=== PATIENT | female | born 1965 | race Two or more races ===

== ENCOUNTER 2020-07-03 12:45 | Outpatient (REF) | payer MEDICAID, SELFPAY ==
[2020-07-03 14:43] LABS: TSH reflex Free T4 0.14 mIU/mL (0.32-4.0)
[2020-07-03 15:22] LABS: Free T4 (Free Thyroxine) 1.47 ng/dL (0.71-1.85)
== END 2020-07-03 12:46 | disposition home or self-care (01) ==
LOC: HO.LAB 12:45
PROVIDERS: PCP Nurse Practitioner Family; Visit Provider Emergency Medicine
DX: E03.9 Hypothyroidism, unspecified (principal)
CPT/HCPCS: 84439; 84443

== ENCOUNTER → 2020-08-14 13:44 | Outpatient (REF) | payer MEDICAID, SELFPAY | LOC: HO.CARD 13:44 | PROVIDERS: Visit Provider Internal Medicine Cardiovascular Disease | DX: Z13.89 Encounter for screening for other disorder (principal) ==

== ENCOUNTER 2021-07-18 13:24 | Outpatient (RCR) | payer MEDICAID, SELFPAY | END 2021-08-21 15:10 | disposition home or self-care (01) | LOC: HO.PT 13:24 | PROVIDERS: PCP Nurse Practitioner Family; Visit Provider Internal Medicine | DX: M54.50 Low back pain, unspecified (principal) | CPT/HCPCS: 97110; 97162 ==

== ENCOUNTER 2022-03-14 09:56 | Outpatient (REF) | payer MEDICAID, SELFPAY ==
[2022-03-14 15:07] LABS: CT PCR NOT DETECTED (Not Detect.); NG PCR NOT DETECTED (Not Detect.)
[2022-03-15 13:36] LABS: BV Int Neg Control Negative (Negative); BV Int Pos Control Positive (Positive)
[2022-03-20 19:06] LABS: HPV mRNA E6/E7 rflx Not Detected (Not Detected)
== END 2022-03-14 09:57 | disposition home or self-care (01) ==
LOC: HO.LAB 09:56
PROVIDERS: Visit Provider Advanced Practice Midwife
DX: Z01.419 Encounter for gynecological examination (general) (routine) without abnormal findings (principal); N95.0 Postmenopausal bleeding; Z11.3 Encounter for screening for infections with a predominantly sexual mode of transmission; Z11.8 Encounter for screening for other infectious and parasitic diseases; Z11.51 Encounter for screening for human papillomavirus (HPV); Z13.29 Encounter for screening for other suspected endocrine disorder
CPT/HCPCS: 87480; 87491; 87510; 87591; 87624; 87660; 88142; 99212

== ENCOUNTER 2022-06-13 12:31 | Outpatient (REF) | payer MEDICAID, SELFPAY ==
--- NOTE | ~2022-06-13 | US_ITS ---
EXAMINATION: US VENOUS ULTRASOUND WITH DOPPLER LOWER EXTREMITY, BILATERAL CLINICAL INFORMATION: Bilateral lower extremity edema COMPARISON: None TECHNIQUE: Ultrasound of the deep veins is performed from the hip to the calf with compression sonography and color and pulse Doppler assessment. Spectral analysis with color-flow imaging is performed. The exam is limited by the patient's body habitus and inability to move adequately. FINDINGS: RIGHT: There is normal venous compression and respiratory variation and augmented flow. The visualized common femoral vein, superficial femoral vein, profunda femoral vein, popliteal vein, and the trifurcation region shows no evidence of deep venous thrombosis. There is no significant popliteal fossa cyst. LEFT: There is normal venous compression and respiratory variation and augmented flow. The visualized common femoral vein, superficial femoral vein, profunda femoral vein, popliteal vein, and the trifurcation region shows no evidence of deep venous thrombosis. The peroneal veins could not be visualized secondary to edema and limited mobility. There is no significant popliteal fossa cyst. Prominent normal architecture lymph node is present in the left groin. If the patient's symptoms persist, followup ultrasound in 5 days 7 days might be of value to exclude proximal propagation from a non-visualized calf vein. US/US venous duplex LE BI IMPRESSION: No DVT demonstrated in either lower extremity.
== END 2022-06-13 12:32 | disposition home or self-care (01) ==
LOC: HO.US 12:31
PROVIDERS: PCP Internal Medicine; Visit Provider Internal Medicine
DX: R60.0 Localized edema (principal)
CPT/HCPCS: 93970

== ENCOUNTER → 2022-07-22 12:51 | Outpatient (BNVA) | payer MEDICAID, SELFPAY | PROVIDERS: PCP Internal Medicine; Visit Provider Surgery Vascular Surgery | DX: I83.12 Varicose veins of left lower extremity with inflammation (principal); I89.0 Lymphedema, not elsewhere classified | CPT/HCPCS: 99202 ==

== ENCOUNTER 2022-08-23 13:24 | Outpatient (REF) | payer MEDICAID, SELFPAY ==
--- NOTE | ~2022-08-23 | US_ITS ---
EXAMINATION: US PELVIS CLINICAL INFORMATION: Postmenopausal bleeding. COMPARISON: None. TECHNIQUE: Ultrasound of the pelvis is performed using both transabdominal and transvaginal transducers along with Doppler. Transvaginal imaging was not performed due to immobility and refusal. FINDINGS: UTERUS: The uterus is anteverted, anteflexed and measures 11.6 cm in length, 5.3 cm in AP and 6.9 cm in transverse dimension. There are multiple nabothian cysts seen in the cervix. The double wall endometrial thickness is 1.1 cm. The uterus is smooth in contour and has normal myometrial echogenicity. No visible fibroid. ADNEXA: Both ovaries are not visualized. There is no free fluid in the cul-de-sac. US/US pelvic complete IMPRESSION: Unremarkable uterus. Small nabothian cysts in the cervix. Ovaries are not visualized.
== END 2022-08-23 13:25 | disposition home or self-care (01) ==
LOC: HO.US 13:24
PROVIDERS: Visit Provider Advanced Practice Midwife
DX: N95.0 Postmenopausal bleeding (principal)
CPT/HCPCS: 76856

== ENCOUNTER 2022-09-05 12:45 | Outpatient (REF) | payer MEDICAID, SELFPAY ==
--- NOTE | ~2022-09-05 | US_ITS ---
EXAMINATION: RIGHT AND LEFT LOWER EXTREMITY VENOUS ULTRASOUND (REFLUX EXAM) CLINICAL INDICATION: Varicose veins. COMPARISON: 03/13/2022 and 08/08/2014. TECHNIQUE: Color flow triplex imaging and compression Doppler was performed to evaluate both the deep and the superficial systems bilaterally. To evaluate the superficial system, the examination was performed in the upright position. Color-flow Doppler ultrasound and compression ultrasound were utilized. In addition, maneuvers were utilized to demonstrate reflux. FINDINGS: 1. DEEP VENOUS ULTRASOUND OF THE RIGHT LOWER EXTREMITY: Respiratory variation, normal compression and augmented flow are noted in the right common femoral vein as well as the right popliteal vein and there is no evidence of deep venous thrombosis at these locations. There is no evidence of reflux in the deep system in either the common femoral vein or the popliteal vein. There is no evidence of a popliteal fossa cyst or popliteal artery aneurysm. 2. SUPERFICIAL ULTRASOUND WITH DOPPLER OF RIGHT LOWER EXTREMITY: The right great saphenous vein at the saphenofemoral junction measures 11 mm, at the midthigh 3 mm, nxaar-qoy-cdnd 3 mm, rexfa-gzh-eyrh 4 mm, at midcalf 5 mm and at the ankle measures 4 mm. There is no reflux demonstrated in the right great saphenous vein. The right small saphenous vein measures 3 mm and shows no reflux. 3. DEEP VENOUS ULTRASOUND OF THE LEFT LOWER EXTREMITY: Respiratory variation, normal compression and augmented flow are noted in the left common femoral vein as well as the left popliteal vein and there is no evidence of deep venous thrombosis at these locations. There is no evidence of reflux in the deep system in either the common femoral vein or the popliteal vein. There is no evidence of a popliteal fossa cyst. No popliteal artery aneurysm. 4. SUPERFICIAL ULTRASOUND WITH DOPPLER OF LEFT LOWER EXTREMITY: Left great saphenous vein at the saphenofemoral junction measures 11 mm, at the midthigh 10 mm, jfsbg-ean-kzix 3 mm, wfgip-gom-nole 5 mm, at midcalf 4 mm and at the ankle measures 5 mm. Reflux is noted within the left greater saphenous vein in the midcalf of approximately 0.7 seconds and at the ankle at approximately 0.6 seconds. No reflux was noted at the saphenofemoral junction. The left small saphenous vein measures 4 mm and shows no reflux. US/US venous duplex LE BI IMPRESSION: 1. No evidence of reflux or thrombus in the common femoral veins or popliteal veins bilaterally. 2. Left greater saphenous vein reflux within the midcalf and ankle.
== END 2022-09-05 12:46 | disposition home or self-care (01) ==
LOC: HO.US 12:45
PROVIDERS: Visit Provider Surgery Vascular Surgery
DX: I83.893 Varicose veins of bilateral lower extremities with other complications (principal)
CPT/HCPCS: 93970

== ENCOUNTER → 2022-09-12 12:51 | Outpatient (BNVA) | payer MEDICAID, SELFPAY | PROVIDERS: PCP Internal Medicine; Visit Provider Surgery Vascular Surgery | DX: I83.11 Varicose veins of right lower extremity with inflammation (principal); I89.0 Lymphedema, not elsewhere classified | CPT/HCPCS: 99212 ==

== ENCOUNTER 2022-12-05 03:28 | Emergency (ER) | payer MEDICAID, SELFPAY ==
--- NOTE | 2022-12-05 | ECG_ITS ---
Test Reason : anxiety/cp Blood Pressure : / mmHG Vent. Rate : 087 BPM Atrial Rate : 087 BPM P-R Int : 130 ms QRS Dur : 082 ms QT Int : 342 ms P-R-T Axes : 048 000 039 degrees QTc Int : 411 ms Normal sinus rhythm Cannot rule out Anterior infarct , age undetermined Abnormal ECG When compared with ECG of 21-MAY-2020 04:25, Nonspecific T wave abnormality no longer evident in Lateral leads Referred By: Azul Luciano Electronically Signed By:MAYTE MIGUEL
[2022-12-05 03:36] VITALS: BP 171/102; PULSE 98; RESP 16; O2SAT 98; BMI 40.3
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
[2022-12-05] MEDS: LORazepam 2 MG/ML VIAL IM (03:59)
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
== END 2022-12-05 06:51 | disposition home or self-care (01) ==
PROVIDERS: Emergency Provider Emergency Medicine; PCP Internal Medicine
DX: F41.9 Anxiety disorder, unspecified (principal); I10 Essential (primary) hypertension; Z79.02 Long term (current) use of antithrombotics/antiplatelets; Z79.899 Other long term (current) drug therapy; Z79.84 Long term (current) use of oral hypoglycemic drugs; Z72.89 Other problems related to lifestyle; Z63.8 Other specified problems related to primary support group
CPT/HCPCS: 93005; 96372; 99284; J2060

== ENCOUNTER 2022-12-05 15:09 | Emergency (ER) | payer MEDICAID, SELFPAY ==
--- NOTE | 2022-12-05 15:19 | ECG_ITS ---
Test Reason : CHEST PAIN Blood Pressure : / mmHG Vent. Rate : 097 BPM Atrial Rate : 097 BPM P-R Int : 136 ms QRS Dur : 082 ms QT Int : 354 ms P-R-T Axes : 047 001 072 degrees QTc Int : 449 ms Normal sinus rhythm Nonspecific T wave abnormality Abnormal ECG When compared with ECG of 05-DEC-2022 03:52, Nonspecific T wave abnormality now evident in Lateral leads Referred By: Generic ED Physician Electronically Signed By:JAZZY BARBER MD
[2022-12-05 15:23] VITALS: BP 178/112; PULSE 116; O2SAT 100
[2022-12-05 15:57] VITALS: BP 164/99; PULSE 107; RESP 18; TEMP 37.1; O2SAT 100; BMI 58.2
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
[2022-12-05] MEDS: LORazepam 1 MG TABLET 2 MG PO (16:14)
[2022-12-05 17:44] LABS: MANUAL DIFF FLAG NO
[2022-12-05 17:50] LABS: Basophils Absolute Auto 0.1 X10*3/uL (0.0-0.2); Basophils Percent Auto 0.3 % (0-2); Eosinophils Absolute Auto 0.1 X10*3/uL (0.0-0.4); Eosinophils Percent Auto 0.5 % (0-4); Hematocrit 41.7 % (37.0-47.0); Imm Gran Pct Auto 0.5 % (0.0-0.4); Lymphocytes Absolute Auto 2.1 X10*3/uL (1.2-4.9); Mean Corpuscular HGB Conc 31.2 g/dl (31.0-35.0); Mean Corpuscular Volume 86.5 fL (80.0-98.0); Mean Platelet Volume 10.2 fL (9.4-12.3); Neutrophils Absolute Auto 15.8 x10*3/uL (2.0-8.3); Neutrophils Percent Auto 82.7 % (45-73); Platelet Count 270 X10*3/uL (160-400); Red Blood Count 4.82 X10*6/uL (4.20-5.50); Red Cell Distribution Width 15.3 % (11.0-16.0); White Blood Count 19.1 X10*3/uL (4.8-10.8)
[2022-12-05 18:08] LABS: COVID-19 Test Negative (Negative); IDNOW Serial# 08D9AD1C
[2022-12-05 18:21] LABS: Alanine Aminotransferase 32 U/L (0-31); Albumin Level 3.8 g/dL (3.5-5.0); Alkaline Phosphatase 122 U/L (39-117); Anion Gap 19 (12-20); Aspartate Amino Transferase 37 U/L (5-31); Bilirubin Direct 0.2 mg/dL (0.0-0.5); Bilirubin Total 0.7 mg/dL (0.0-1.0); Blood Urea Nitrogen 13 mg/dL (9-16); Calcium 9.3 mg/dL (8.4-10.2); Carbon Dioxide 16 mmol/L (22-29); Chloride 105 mmol/L (96-108); Creatinine Clr Calc Pharmacy 98.3; Estimated Glomerular Filt Rate > 60; Ethanol < 10 mg/dL; Glucose Random 177 mg/dL (60-115); Magnesium 2.1 mg/dL (1.6-2.6); Potassium 4.2 mmol/L (3.3-5.1); Sodium 136 mmol/L (135-145)
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
[2022-12-05 20:00] VITALS: BP 142/69; PULSE 100; RESP 22; TEMP 36.9; O2SAT 99
--- NOTE | 2022-12-05 20:13 | MHC.EDTECH ---
Put a purewick for patient to void. Another dialysis technician assist to give patient a boost up in bed.
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
[2022-12-05 21:43] LABS: Appearance Urine Clear; Color Urine Yellow; Glucose Urine UA 250 mg/dL (Negative); Leukocyte Esterase Urine Small (1+) (Negative); Nitrite Urine Negative (Negative); PH 5.5 (5.0-9.0); Specific Gravity - Urine 1.025 (1.005-1.025); UMIC TRIGGER UACC YES; Urine Blood Negative (Negative); Urine Ketones Negative (Negative); Urine Protein 100 (2+) mg/dL (Neg-Trace)
[2022-12-05 21:52] LABS: Amphetamine Screen Urine Not Detected (Not Detect); Barbiturates, Urine Not Detected (Not Detect); Benzodiazepines Screen Urine Not Detected (Not Detect); Cannabinoid Screen Urine Not Detected (Not Detect); Cocaine Screen Urine Not Detected (Not Detect); Fentanyl, urine Not Detected (Not Detect); Opiate Screen Urine Not Detected (Not Detect); Phencyclidine Screen Urine Not Detected (Not Detect)
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
[2022-12-05 23:01] LABS: PLT CLUMP 1; Red Cell Distribution Width 15.4 % (11.0-16.0); SCAN SMEAR FLAG 1; WBC ABN SCTR 1
[2022-12-05 23:03] LABS: Basophils Percent Auto 0.2 % (0-2); Eosinophils Absolute Auto 0.1 X10*3/uL (0.0-0.4); Eosinophils Percent Auto 0.7 % (0-4); Hematocrit 40.7 % (37.0-47.0); Hemoglobin 12.9 g/dl (12.0-16.0); Imm Gran Abs Auto 0.08 X10*3/uL (0.00-0.03); Imm Gran Pct Auto 0.4 % (0.0-0.4); Lymphocytes Absolute Auto 2.1 X10*3/uL (1.2-4.9); Lymphocytes Percent Auto 10.6 % (20-40); Mean Corpuscular HGB Conc 31.7 g/dl (31.0-35.0); Mean Corpuscular Hemoglobin 26.8 pg (27.0-33.0); Mean Corpuscular Volume 84.6 fL (80.0-98.0); Mean Platelet Volume 10.1 fL (9.4-12.3); Monocytes Absolute Auto 0.7 X10*3/uL (0.1-1.2); Monocytes Percent Auto 3.4 % (2-11); Neutrophils Absolute Auto 16.5 x10*3/uL (2.0-8.3); Neutrophils Percent Auto 84.7 % (45-73); Red Blood Count 4.81 X10*6/uL (4.20-5.50)
[2022-12-05 23:09] LABS: MANUAL DIFF FLAG NO; WBC ABN SCTR FOR CBC 1
[2022-12-05 23:10] LABS: White Blood Count 19.5 X10*3/uL (4.8-10.8)
[2022-12-05 23:16] LABS: Bacteria Urine 4+ (None Seen); Hyaline Casts Urine 0-2 /LPF (0-2); RBC Urine 0-2 /HPF (0-2); Squamous Epithelial Cell Urine 0-2 /HPF (0-2); UACC Culture Trigger YES; WBC Urine 21-50 /HPF (0-5)
[2022-12-05 23:56] VITALS: BP 139/79; PULSE 93; RESP 16; TEMP 36.6; O2SAT 99
--- NOTE | 2022-12-06 00:55 | PC.NURSE ---
assumed care of patient at 2300 - patient resting comfortably on stretcher, call nicole within reach. visitor at bedside. will CTM
--- NOTE | 2022-12-06 07:17 | PC.NURSE ---
Patient and significant other sleeping in room no distress noted will CTM
[2022-12-06 08:53] VITALS: BP 154/98; PULSE 94; RESP 22; O2SAT 99
[2022-12-06 09:10] LABS: MANUAL DIFF FLAG NO
[2022-12-06 09:12] LABS: Basophils Absolute Auto 0.1 X10*3/uL (0.0-0.2); Basophils Percent Auto 0.3 % (0-2); Eosinophils Absolute Auto 0.3 X10*3/uL (0.0-0.4); Eosinophils Percent Auto 1.7 % (0-4); Hematocrit 37.7 % (37.0-47.0); Hemoglobin 12.2 g/dl (12.0-16.0); Imm Gran Abs Auto 0.06 X10*3/uL (0.00-0.03); Imm Gran Pct Auto 0.4 % (0.0-0.4); Lymphocytes Absolute Auto 3.5 X10*3/uL (1.2-4.9); Lymphocytes Percent Auto 20.5 % (20-40); Mean Corpuscular HGB Conc 32.4 g/dl (31.0-35.0); Mean Corpuscular Hemoglobin 27.5 pg (27.0-33.0); Mean Corpuscular Volume 84.9 fL (80.0-98.0); Mean Platelet Volume 9.8 fL (9.4-12.3); Monocytes Absolute Auto 0.6 X10*3/uL (0.1-1.2); Monocytes Percent Auto 3.8 % (2-11); Neutrophils Absolute Auto 12.4 x10*3/uL (2.0-8.3); Neutrophils Percent Auto 73.3 % (45-73); Platelet Count 283 X10*3/uL (160-400); Red Blood Count 4.44 X10*6/uL (4.20-5.50); Red Cell Distribution Width 15.4 % (11.0-16.0); White Blood Count 16.9 X10*3/uL (4.8-10.8)
--- NOTE | 2022-12-06 09:41 | PC.NURSE ---
Spoke with Sgt Glo FITZGERALD, they would not transport patient to court.
--- NOTE | 2022-12-06 09:47 | PC.NURSE ---
Spoke with boyfriend of patient patient ok with chair nile taking patient directly to court to file 209A, then they will aquire ride home from there. Both case management and provider aware will prepare for discharge
--- NOTE | 2022-12-06 10:37 | MHC.CM.ED ---
Per ANASTASIA Thorpe patient is ready for discharge. Attempted to arrange transportation to the [facility]. Patient and sig other are declining transportation to court at this time and are requesting to return home. Chair van booked for patient. Fariha booked for sig other. Patient, sig other, Momo NAVA and Ila OCONNOR aware. Continue to monitor for d/c needs.
--- NOTE | 2022-12-06 11:14 | PHA.MEDREC ---
Pharmacy Consult ? Medication Reconciliation Pharmacy has completed the medication reconciliation. Utilized claim history and list for med box from pharmacy
[2022-12-06 11:32] VITALS: BP 154/58; PULSE 95; RESP 18; TEMP 36.6; O2SAT 98
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
== END 2022-12-06 12:10 | disposition still patient (30) ==
PROVIDERS: Nurse Practitioner Family; Physician Assistant; Emergency Provider Student in an Organized Health Care Education/Training Program
DX: F41.9 Anxiety disorder, unspecified (principal); F43.20 Adjustment disorder, unspecified; N39.0 Urinary tract infection, site not specified; B96.20 Unspecified Escherichia coli [E. coli] as the cause of diseases classified elsewhere; B96.1 Klebsiella pneumoniae [K. pneumoniae] as the cause of diseases classified elsewhere; R00.0 Tachycardia, unspecified; Z20.822 Contact with and (suspected) exposure to COVID-19; I10 Essential (primary) hypertension; Z72.89 Other problems related to lifestyle; Z63.79 Other stressful life events affecting family and household; Z79.02 Long term (current) use of antithrombotics/antiplatelets; Z79.899 Other long term (current) drug therapy
CPT/HCPCS: 36415; 80048; 80076; 80307; 81001; 81003; 82077; 83735; 84484; 85025; 87086; 87088; 87186; 87635; 93005; 99284

== ENCOUNTER 2022-12-26 13:48 | Outpatient (REF) | payer MEDICAID, SELFPAY | END 2022-12-26 13:49 | disposition home or self-care (01) | LOC: HO.LAB 13:48 | PROVIDERS: Visit Provider Advanced Practice Midwife | DX: N95.0 Postmenopausal bleeding (principal); R93.89 Abnormal findings on diagnostic imaging of other specified body structures | CPT/HCPCS: 58100; 88305 ==

== ENCOUNTER → 2023-01-03 11:12 | Outpatient (BNVA) | payer MEDICAID, SELFPAY | PROVIDERS: Visit Provider Advanced Practice Midwife ==

== ENCOUNTER 2023-07-07 14:25 | Outpatient (REF) | payer MEDICAID, SELFPAY ==
[2023-07-07 15:10] LABS: Anion Gap 13 (12-20); Blood Urea Nitrogen 15 mg/dL (9-16); Calcium 10.4 mg/dL (8.4-10.2); Carbon Dioxide 24 mmol/L (22-29); Chloride 103 mmol/L (96-108); Estimated Glomerular Filt Rate 51; Glucose Random 122 mg/dL (60-115); Potassium 4.1 mmol/L (3.3-5.1); Sodium 136 mmol/L (135-145)
[2023-07-07 15:16] LABS: B Type Natriuretic Peptide 19 pg/mL (<100)
== END 2023-07-07 14:26 | disposition home or self-care (01) ==
LOC: HO.LAB 14:25
PROVIDERS: PCP Internal Medicine; Visit Provider Internal Medicine Cardiovascular Disease
DX: R60.9 Edema, unspecified (principal)
CPT/HCPCS: 36415; 80048; 83880

== ENCOUNTER 2023-07-25 13:40 | Outpatient (AMB) | payer MEDICAID, SELFPAY ==
--- NOTE | 2023-07-25 13:51 | A.OFFVIS_ITS ---
Intake Vital Signs 07/25/23 13:56 Weight 230 lb BP 146/92 H Blood Pressure Location Rt brachial Position Sitting Respiration 17 Pulse 75 Pulse Source Pulse Oximeter Pulse Oximetry (%) 98 Oxygen Delivery Method Room Air Intake Visit Reasons: NPV - DAKOTA/Confirmed Intake Note: Pt presents to the office for a new pt evaluation for DAKOTA. She reports she has been using her CPAP for about 5 years now. Her PCP referred her over to have her settings adjusted since she has been having trouble tolerating it. She states it dries out her nasal cavity as well as her mouth making it difficult to breath and sleep. She states the machine spits water from her piping. Allergies amoxicillin [From AUGMENTIN] Allergy (Unknown, Verified 07/25/23 14:02) UNKNOWN. clavulanic acid [From AUGMENTIN] Allergy (Unknown, Verified 07/25/23 14:02) UNKNOWN. morphine [MORPHINE] Allergy (Unknown, Verified 07/25/23 14:02) UNKNOWN Penicillins [PCN] Allergy (Unknown, Verified 07/25/23 14:02) UNKNOWN HPI HPI Comments History of Present Illness Details 57 y/o female patient with DAKOTA on BiPAP presents for new in-person visit to manage her sleep apnea. Pt reports she was diagnosed with DAKOTA many years ago, and had a repeat sleep study done in 2020, and had new BiPAP in 2020. Pt states that she uses BiPAP nightly, but lately the tubing rain out the water to her mouth and could not use it well. Her home care company is [facility], she has not call to the home care company for the problem yet. She usually sleeps well with her BiPAP and refreshed, and daytime symptoms has improved. The BiPAP compliance and therapy response (06/25/23-07/24/23) reviewed. She is on BiPAP 15/10 cmH2O. The usage days 43% and the average usage hours 4 hrs 50 min. The residual AHI was 5.8/hr and apnea index was central 0.5 and obstrucive 3.3. [facility] Medical History (Updated 07/25/23 @ 16:30 by Cristina Chang CNP) Diabetes mellitus Edema Hypercholesteremia Surgical History (Updated 07/25/23 @ 14:03 by Lilo Diaz [facility]) History of knee surgery History of back surgery Social History (Updated 07/25/23 @ 14:04 by Lilo Diaz CMA) Household Members: Significant Other and Children Housing: Apartment Alcohol intake: never Patient Tobacco Use Status: Never used Tobacco Review of Systems Const All systems reviewed & are unremarkable except as noted in HPI and below ENT Reports Normal hearing present Neuro Reports Normal hearing present Physical Exam Vital Signs: Last Vital Signs Pulse 75 07/25/23 13:56 Resp 17 07/25/23 13:56 BP 146/92 H 07/25/23 13:56 Pulse Ox 98 07/25/23 13:56 Oxygen Delivery Method Room Air 07/25/23 13:56 Const General: cooperative Nutritional Appearance: obese Orientation/consciousness: patient oriented x3 Resp Effort & Inspection: normal respiratory effort and able to speak in complete sentences Neuro General: patient oriented x3 Cranial nerves: Yes Bilaterally intact EOM present, Yes Normal facial strength present, Yes Midline tongue present, Yes Symmetric palate elevation present, Yes Normal hearing present, Yes Ability to bilaterally rotate head present and Yes Ability to bilaterally elevate shoulders present Cognition (Neuro): normal cognition Gait exam (Neuro): Assistive device used (wheel chair.) Motor exam (neuro): Pronator motor function not present and no tremor noted Psych Appearance: grossly normal Mental Status: mental status grossly normal Affect: normal affect Attitude: cooperative Assessment & Plan Assessment & Plan (1) DAKOTA treated with BiPAP: Code(s): G47.33 - Obstructive sleep apnea (adult) (pediatric) Plan Advised patient to contact to [facility] and discuss about adjusting the humidifier setting or her room temperature. Continue to use BiPAP at 15/10 cmH2O as patient experiences good clinical effects. Stressed compliance, use BiPAP nighlty and more than 4hrs. Coding Level of Care Code New Pt Level 3 (74992) Diagnoses DAKOTA treated with BiPAP G47.33
[2023-07-25 13:56] VITALS: BP 146/92; PULSE 75; RESP 17; O2SAT 98
== END 2023-07-25 14:26 | disposition home or self-care (01) ==
PROVIDERS: PCP Internal Medicine; Visit Provider Nurse Practitioner Family
DX: G47.33 Obstructive sleep apnea (adult) (pediatric) (principal)
CPT/HCPCS: 99203

== ENCOUNTER → 2023-07-25 13:40 | Outpatient (BNVA) | payer MEDICAID, SELFPAY | PROVIDERS: PCP Internal Medicine; Visit Provider Nurse Practitioner Family | DX: G47.33 Obstructive sleep apnea (adult) (pediatric) (principal) | CPT/HCPCS: 99212 ==

== ENCOUNTER 2023-07-29 14:11 | Outpatient (REF) | payer MEDICAID, SELFPAY ==
[2023-07-29 16:02] LABS: Appearance Urine Clear; Color Urine Yellow; Glucose Urine UA Negative (Negative); Leukocyte Esterase Urine Negative (Negative); Nitrite Urine Negative (Negative); PH 5.5 (5.0-9.0); Specific Gravity - Urine 1.025 (1.005-1.025); UMIC TRIGGER UA YES; Urine Blood Negative (Negative); Urine Ketones Negative (Negative); Urine Protein 100 (2+) mg/dL (Neg-Trace)
[2023-07-29 16:08] LABS: Bacteria Urine 2+ (None Seen); Hyaline Casts Urine 0-2 /LPF (0-2); RBC Urine 0-2 /HPF (0-2)
[2023-07-29 16:25] LABS: Anion Gap 15 (12-20); Blood Urea Nitrogen 15 mg/dL (9-16); Calcium 10.2 mg/dL (8.4-10.2); Carbon Dioxide 26 mmol/L (22-29); Chloride 100 mmol/L (96-108); Estimated Glomerular Filt Rate 48; Potassium 3.9 mmol/L (3.3-5.1); Sodium 137 mmol/L (135-145)
[2023-07-29 17:08] LABS: Creatinine Urine 179.74 mg/dL; Microalbum/Creatinine Ratio Ur 270.9 ug/mg cr (<30)
== END 2023-07-29 14:12 | disposition home or self-care (01) ==
LOC: HO.HHCL 14:11
PROVIDERS: Visit Provider Internal Medicine Nephrology
DX: R60.9 Edema, unspecified (principal); I15.0 Renovascular hypertension
CPT/HCPCS: 36415; 80051; 81001; 82043; 82310; 82565; 82570; 84520

== ENCOUNTER 2023-09-06 20:39 | Emergency (ER) | payer MEDICAID, SELFPAY ==
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
--- NOTE | ~2023-09-06 | CT_ITS ---
EXAMINATION: CT CHEST, ABDOMEN AND PELVIS WITHOUT CONTRAST CLINICAL INFORMATION: CT chest, abdomen and pelvis 05/21/2020 COMPARISON: No pertinent prior studies are available for comparison. TECHNIQUE: Multidetector volumetric imaging was performed from the thoracic inlet through the pubic symphysis without IV contrast. Sagittal and coronal reformatted images were obtained on the technologist's workstation. This CT examination was performed using dose optimization techniques as appropriate, variously including the following: *Automated exposure control *Adjustment of mA and/or kV according to patient size (this includes techniques or standardized protocols for targeted exams where dose is matched to indication/reason for exam; i.e. extremities or head) *Use of iterative reconstruction technique DLP: 1679 mGy-cm FINDINGS: CHEST: Lung: Bibasilar atelectasis is present. The lungs are otherwise unremarkable without focal opacity or nodule. No pleural effusions. Mediastinum: There is thyromegaly. Small to moderate-sized pericardial effusion is present which has increased in size considerably since the prior study.. The central vascular structures are unremarkable. No hilar or mediastinal lymphadenopathy. Coronary calcium is present. Chest Wall/Axilla: Unremarkable ABDOMEN/PELVIS: Peritoneal Space: No significant free air or free fluid identified. Liver, Gallbladder, Biliary Tree: The liver is enlarged measuring 18.5 cm in cephalocaudad dimension with normal shape and attenuation. No focal hepatic lesion or biliary ductal dilatation is present. The gallbladder contains multiple layering gallstones but is otherwise unremarkable with no evidence gallbladder wall thickening or obvious pericholecystic inflammatory changes. Pancreas: Unremarkable Spleen: Unremarkable Adrenal Glands: Unremarkable Kidneys and Ureters: The kidneys are normal in size, shape, and attenuation. No hydronephrosis, hydroureter, or calculi seen. No perinephric stranding. Bladder: Unremarkable Gastrointestinal Tract: There are diverticula present throughout the colon without diverticulitis. The small and large bowel are otherwise unremarkable. The appendix is unremarkable. Abdominal Wall: No significant hernia is appreciated. There is diastases of the rectus muscles with forward bulging Lymph Nodes: No lymphadenopathy. Vascular: The aorta appears normal.. The IVC appears unremarkable. PELVIC VISCERA: The uterus and adnexa are unremarkable. OSSEUS STRUCTURES: Mild degenerative changes are noted in the spine. No bony destructive lesions are seen. CT/CT abdomen pelvis wo IV con IMPRESSION: 1. No evidence of a traumatic injury in the chest, abdomen or pelvis. 2. Incidental note made of thyromegaly, increase in size of small to moderate-sized pericardial effusion, cholelithiasis without cholecystitis, colonic diverticulosis without diverticulitis and mild hepatomegaly. Fleischner guidelines were followed.
[2023-09-06 20:57] VITALS: BP 131/99; BP 158/86; PULSE 100; PULSE 103; RESP 18; TEMP 36.6; O2SAT 100; BMI 35.9
--- NOTE | 2023-09-06 21:03 | ECG_ITS ---
Test Reason : TACHYCARDIA Blood Pressure : / mmHG Vent. Rate : 090 BPM Atrial Rate : 090 BPM P-R Int : 132 ms QRS Dur : 082 ms QT Int : 338 ms P-R-T Axes : 054 015 082 degrees QTc Int : 413 ms Normal sinus rhythm Low voltage QRS Cannot rule out Anterior infarct , age undetermined Abnormal ECG When compared with ECG of 05-DEC-2022 15:43, No significant change was found Referred By: Generic ED Physician Electronically Signed By:JAZZY BARBER MD
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
[2023-09-07 00:51] VITALS: BP 160/87; PULSE 84; RESP 18; O2SAT 99
[2023-09-07] MEDS: Diphth,Pertus(ACell),Tet Adult 0.5 ML SYRINGE IM (00:58)
--- NOTE | 2023-09-07 02:27 | MHC.EDTECH ---
call out to annette at 022 to book transport for pt, estimated eta given was 030
== END 2023-09-07 03:28 | disposition home or self-care (01) ==
PROVIDERS: Emergency Provider Emergency Medicine
DX: S00.83XA Contusion of other part of head, initial encounter (principal); S00.212A Abrasion of left eyelid and periocular area, initial encounter; R51.9 Headache, unspecified; M25.512 Pain in left shoulder; R00.0 Tachycardia, unspecified; M54.2 Cervicalgia; Y04.2XXA Assault by strike against or bumped into by another person, initial encounter; Y93.9 Activity, unspecified; Y92.9 Unspecified place or not applicable; Y99.9 Unspecified external cause status; Z79.899 Other long term (current) drug therapy; Z23 Encounter for immunization
CPT/HCPCS: 70450; 70486; 71250; 72125; 73030; 74176; 90471; 90715; 93005; 99284; 99285

== ENCOUNTER → 2023-09-06 21:03 | Outpatient (BNV) | payer MEDICAID, SELFPAY | PROVIDERS: Emergency Provider Emergency Medicine; Visit Provider Internal Medicine Cardiovascular Disease | DX: R00.0 Tachycardia, unspecified (principal) | CPT/HCPCS: 93010 ==

== ENCOUNTER 2024-01-14 13:21 | Outpatient (AMB) | payer MEDICAID, SELFPAY ==
--- NOTE | 2024-01-14 13:30 | MHC.OFFVIS ---
Vital Signs 01/14/24 13:40 Height 5 ft 10 in BP 134/80 Blood Pressure Location Lt brachial Position Sitting Pulse 83 Pulse Source Pulse Oximeter Pulse Oximetry (%) 98 Oxygen Delivery Method Room Air Intake Visit Reasons: 4 mo f/u - DAKOTA - Conf w/address Intake Note: Patient presents for 4 month f/u. Allergies amoxicillin [From AUGMENTIN] Allergy (Unknown, Verified 01/14/24 13:35) UNKNOWN. clavulanic acid [From AUGMENTIN] Allergy (Unknown, Verified 01/14/24 13:35) UNKNOWN. morphine [MORPHINE] Allergy (Unknown, Verified 01/14/24 13:35) UNKNOWN Penicillins [PCN] Allergy (Unknown, Verified 01/14/24 13:35) UNKNOWN HPI Comments Details: 58 y/o female patient presents for follow up of DAKOTA on BiPAP. Pt reports she had received new BiPAP supplies. She usually sleeps well with her BiPAP and refreshed, and daytime symptoms has improved. Pt was hospitalized for pulmonary embolism and stay in rehab during Oct. She is on lovenox now for 3 months. Pt reports she breathe better now. 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 The BiPAP compliance and therapy response (12/11/23-01/09/24) reviewed. She is on BiPAP 15/10 cmH2O. The usage days 90% and the average usage hours 4 hrs. The residual AHI was 11.1/hr and apnea index was central 0.2 and obstrucive 3.2, unknown 7.3. [facility] Medical History (Updated 09/09/23 @ 08:02 by Ingrid Torrez) Cervical cyst Wheelchair bound History of fibromyalgia Chronic GERD Sleep apnea Morbid obesity Hypothyroid Hypertension Chronic back pain Osteoarthritis Diabetes mellitus Edema Hypercholesteremia Surgical History History of surgery of head H/O Spinal surgery H/O left knee surgery History of knee surgery History of back surgery Social History Household Members: Spouse, Significant Other and Children Housing: Apartment Alcohol intake: never Patient Tobacco Use Status: Never used Tobacco Review of Systems Const All systems reviewed & are unremarkable except as noted in HPI and below ENT Reports Normal hearing present Neuro Reports Normal hearing present Physical Exam Const General: cooperative Nutritional Appearance: obese Orientation/consciousness: patient oriented x3 Limitations: wheelchair Resp Effort & Inspection: normal respiratory effort and able to speak in complete sentences Neuro General: patient oriented x3 Cranial nerves: Yes Bilaterally intact EOM present, Yes Normal facial strength present, Yes Midline tongue present, Yes Symmetric palate elevation present, Yes Normal hearing present, Yes Ability to bilaterally rotate head present and Yes Ability to bilaterally elevate shoulders present Cognition (Neuro): normal cognition Gait exam (Neuro): Assistive device used (wheel chair.) Motor exam (neuro): Pronator motor function not present and no tremor noted Psych Appearance: grossly normal Mental Status: mental status grossly normal Affect: normal affect Attitude: cooperative Assessment & Plan Assessment & Plan (1) DAKOTA treated with BiPAP: Code(s): G47.33 - Obstructive sleep apnea (adult) (pediatric) Category: Medical Plan Continue to use BiPAP at 15/10 cmH2O as patient experiences good clinical effects. Stressed compliance, use BiPAP nighlty and more than 4hrs. Continue to follow up with customs opener verifier packer and aircraft engine mechanic overhaul. Coding Level of Care Code Est Pt Level 3 (35376) Diagnoses DAKOTA treated with BiPAP G47.33
[2024-01-14 13:40] VITALS: BP 134/80; PULSE 83; O2SAT 98
== END 2024-01-14 13:55 | disposition home or self-care (01) ==
PROVIDERS: PCP Internal Medicine; Visit Provider Nurse Practitioner Family
DX: G47.33 Obstructive sleep apnea (adult) (pediatric) (principal)
CPT/HCPCS: 99213

== ENCOUNTER → 2024-01-14 13:21 | Outpatient (BNVA) | payer MEDICAID, SELFPAY | PROVIDERS: PCP Internal Medicine; Visit Provider Nurse Practitioner Family | DX: G47.33 Obstructive sleep apnea (adult) (pediatric) (principal); Z99.89 Dependence on other enabling machines and devices | CPT/HCPCS: 99212 ==

== ENCOUNTER 2024-01-22 14:21 | Outpatient (REF) | payer MEDICAID, SELFPAY ==
--- NOTE | ~2024-01-22 | US_ITS ---
EXAMINATION: US VENOUS ULTRASOUND WITH DOPPLER LOWER EXTREMITY, LEFT CLINICAL INFORMATION: Left lower extremity edema History of PE COMPARISON: None available. TECHNIQUE: Ultrasound of the deep veins is performed from the hip to the calf with compression sonography and color and pulse Doppler assessment. Spectral analysis with color-flow imaging is performed. Limited study due to body habitus and patient mobility. FINDINGS: There is normal venous compression and respiratory variation. The visualized common femoral vein, superficial proximal and mid femoral vein, profunda femoral vein, popliteal vein and the posterior tibial vein shows no evidence of deep venous thrombosis. There are limited views of the left distal femoral vein. The left peroneal vein is not seen. There are limited views due to body habitus and patient mobility. US/US venous duplex LE LT IMPRESSION: No DVT demonstrated in the left lower extremity.
== END 2024-01-22 14:22 | disposition home or self-care (01) ==
LOC: HO.US 14:21
PROVIDERS: PCP Internal Medicine; Visit Provider Internal Medicine
DX: R60.0 Localized edema (principal)
CPT/HCPCS: 93971

== ENCOUNTER 2024-03-23 14:06 | Outpatient (REF) | payer MEDICAID, SELFPAY | END 2024-03-23 14:07 | disposition home or self-care (01) | LOC: HO.HHCL 14:06 | PROVIDERS: Visit Provider Internal Medicine | DX: Z13.89 Encounter for screening for other disorder (principal) ==

== ENCOUNTER 2024-04-26 15:46 | Outpatient (REF) | payer MEDICAID, SELFPAY ==
[2024-04-26 18:22] LABS: Alanine Aminotransferase 18 U/L (0-31); Albumin Level 3.8 g/dL (3.5-5.0); Alkaline Phosphatase 128 U/L (39-117); Anion Gap 13 (12-20); Aspartate Amino Transferase 19 U/L (5-31); Bilirubin Total 0.3 mg/dL (0.0-1.0); Blood Urea Nitrogen 13 mg/dL (9-16); Carbon Dioxide 22 mmol/L (22-29); Chloride 105 mmol/L (96-108); Estimated Glomerular Filt Rate > 60; Glucose Random 116 mg/dL (60-115); Potassium 4.4 mmol/L (3.3-5.1); Sodium 136 mmol/L (135-145); Total Protein 8.5 g/dL (6.5-8.0)
== END 2024-04-26 15:47 | disposition home or self-care (01) ==
LOC: HO.HHCL 15:46
PROVIDERS: Visit Provider Internal Medicine
DX: R79.89 Other specified abnormal findings of blood chemistry (principal)
CPT/HCPCS: 36415; 80053

== ENCOUNTER → 2024-05-20 10:27 | Outpatient (BNVA) | payer MEDICAID, SELFPAY | PROVIDERS: PCP Internal Medicine; Referring Provider Internal Medicine; Visit Provider Internal Medicine Pulmonary Disease ==

== ENCOUNTER 2024-07-07 13:37 | Outpatient (AMB) | payer MEDICAID, SELFPAY ==
[2024-07-07 13:54] VITALS: BP 122/66; PULSE 76
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
== END 2024-07-07 14:39 | disposition home or self-care (01) ==
PROVIDERS: PCP Internal Medicine; Visit Provider Internal Medicine
DX: I31.39 Other pericardial effusion (noninflammatory) (principal)
CPT/HCPCS: 93010; 99204

== ENCOUNTER → 2024-07-07 13:37 | Outpatient (BNVA) | payer MEDICAID, SELFPAY | PROVIDERS: PCP Internal Medicine; Visit Provider Internal Medicine | DX: I31.39 Other pericardial effusion (noninflammatory) (principal); R00.1 Bradycardia, unspecified; R94.31 Abnormal electrocardiogram [ECG] [EKG] | CPT/HCPCS: 93005; 99202 ==

== ENCOUNTER 2024-07-22 14:26 | Outpatient (REF) | payer MEDICAID, SELFPAY ==
[2024-07-22 15:56] LABS: Basophils Absolute Auto 0.1 X10*3/uL (0.0-0.2); Basophils Percent Auto 0.5 % (0-2); Eosinophils Absolute Auto 0.4 X10*3/uL (0.0-0.4); Eosinophils Percent Auto 4.5 % (0-4); Hemoglobin 11.8 g/dl (12.0-16.0); Imm Gran Abs Auto 0.04 X10*3/uL (0.00-0.03); Imm Gran Pct Auto 0.4 % (0.0-0.4); Lymphocytes Absolute Auto 3.4 X10*3/uL (1.2-4.9); Lymphocytes Percent Auto 34.9 % (20-40); MANUAL DIFF FLAG SCAN; Mean Corpuscular HGB Conc 31.9 g/dl (31.0-35.0); Mean Corpuscular Hemoglobin 26.3 pg (27.0-33.0); Mean Corpuscular Volume 82.4 fL (80.0-98.0); Mean Platelet Volume 10.4 fL (9.4-12.3); Monocytes Absolute Auto 0.4 X10*3/uL (0.1-1.2); Monocytes Percent Auto 3.9 % (2-11); NRBC Pct Auto 0.2 /100WBC (0.0-0.2); Neutrophils Absolute Auto 5.4 x10*3/uL (2.0-8.3); Neutrophils Percent Auto 55.8 % (45-73); PLT CLUMP 1; Red Blood Count 4.49 X10*6/uL (4.20-5.50); Red Cell Distribution Width 15.2 % (11.0-16.0); SCAN SMEAR FLAG 1
[2024-07-22 15:58] LABS: Platelet Count 275 X10*3/uL (160-400); White Blood Count 9.7 X10*3/uL (4.8-10.8)
[2024-07-22 16:44] LABS: SLIDE REVIEW VERIFIED
[2024-07-28 13:18] LABS: Class Alternaria alternata 0; Class Aspergillus fumigatus 0; Class Bermuda Grass 0; Class Birch 0; Class Cat Dander 0; Class Cladosporium herbarum 0/1; Class Cockroach 1; Class Cottonwood 0/1; Class Derm. pterony 0/1; Class Dermatophagoides farinae 0; Class Dog Dander 0; Class Elm 0; Class Maple Box Elder 0; Class Mountain Cedar 0; Class Mouse Urine Protein 0; Class Oak 0; Class Penicillium crysogenum 0; Class Sycamore 0; Class Timothy Grass 0; Class Walnut Tree 0; D002 - IgE D farinae <0.10 kU/L; E001 - IgE Cat Dander <0.10 kU/L; E005 - IgE Dog Dander <0.10 kU/L; E072-IgE Mouse Urine <0.10 kU/L; G002 IgE Bermuda Grass <0.10 kU/L; G006 - IgE Timothy Grass <0.10 kU/L; I006-IgE Cockroach, German 0.51 kU/L; M001 IgE Penicillium chrysogen <0.10 kU/L; M002 - IgE Cladosporium herbar 0.12 kU/L; M003 - IgE Aspergillus fumigat <0.10 kU/L; M006 - IgE Alternaria alternat <0.10 kU/L; T001 IgE Maple/Box Elder <0.10 kU/L; T003 IgE Common Silver Birch <0.10 kU/L; T006 - IgE Cedar, Mountain <0.10 kU/L; T007 - IgE Oak, White <0.10 kU/L; T008 IgE Elm, American <0.10 kU/L; T010 - IgE Walnut <0.10 kU/L; T011 - IgE Maple Leaf Sycamore <0.10 kU/L; T014 - IgE Cottonwood 0.17 kU/L
== END 2024-07-22 14:27 | disposition home or self-care (01) ==
LOC: HO.LAB 14:26
PROVIDERS: PCP Internal Medicine; Visit Provider Internal Medicine Pulmonary Disease
DX: Z91.09 Other allergy status, other than to drugs and biological substances (principal); R06.00 Dyspnea, unspecified
CPT/HCPCS: 36415; 82785; 85025; 86003; 99202

== ENCOUNTER 2024-07-22 14:26 | Outpatient (AMB) | payer MEDICAID, SELFPAY ==
--- NOTE | 2024-07-22 14:29 | MHC.OFFVIS ---
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 clavulanic acid [From AUGMENTIN] Allergy (Unknown, Verified 05/20/24 10:33) UNKNOWN. morphine [MORPHINE] Allergy (Unknown, Verified 05/20/24 10:33) UNKNOWN Penicillins [PCN] Allergy (Unknown, Verified 05/20/24 10:33) UNKNOWN HPI HPI Shortness of breath: Details: 58-year-old lady, nonsmoker, with underlying history of heart failure under cardiology care, DAKOTA on BiPAP managed at [facility], referred for evaluation of pulmonary component to dyspnea. Patient does endorse significant dyspnea on exertion. She also complains of environmental allergies. She denies prior personal or family history of lung disease. She denies exposure to industrial dusts. She has been using albuterol MDI with suboptimal control of her symptoms. [facility] Medical History Cervical cyst Wheelchair bound History of fibromyalgia Chronic GERD Sleep apnea Morbid obesity Hypothyroid Hypertension Chronic back pain Osteoarthritis Diabetes mellitus Edema Hypercholesteremia Surgical History History of surgery of head H/O Spinal surgery H/O left knee surgery History of knee surgery History of back surgery Family History (Updated 07/07/24 @ 14:10 by Cyndi Swann) Mother No problems noted. Father No problems noted. Social History Household Members: Spouse, Significant Other and Children Housing: Apartment Alcohol intake: never Patient Tobacco Use Status: Never used Tobacco Review of Systems Const Denies daytime sleepiness, Denies excessive sweating, Denies fatigue, Denies fever(s), Denies lethargy, Denies malaise, Denies night sweats, Denies snoring and Denies weight loss Eyes Denies blurry vision and Denies itchy eyes ENT Denies nasal congestion, Denies post nasal drip, Denies sinus pain, Denies sinus pressure and Denies other ( Thrush) Card Denies chest pain, Denies pedal edema, Denies dyspnea, Reports dyspnea on exertion, Denies orthopnea and Denies paroxysmal nocturnal dyspnea Resp Denies cough, Denies hemoptysis, Denies excessive phlegm production, Denies dyspnea, Reports dyspnea on exertion, Denies snoring and Denies wheezing GI Denies abdominal pain and Denies heartburn Musc Denies myalgias, Denies arthralgias and Denies joint swelling Skin/Breast Denies rash Neuro Denies memory loss and Denies seizure-like activity Psych Denies abnormal sleep pattern, Denies anxiety and Denies memory loss Endo Denies excessive sweating, Denies fatigue and Denies heat intolerance [place]/Lymph Denies easy bruising Aller/Immun Denies itchy eyes, Denies seasonal rhinorrhea and Denies wheezing Physical Exam Vital Signs: Last Vital Signs Pulse 77 07/22/24 14:30 BP 128/82 07/22/24 14:30 Pulse Ox 100 07/22/24 14:30 Oxygen Delivery Method Room Air 07/22/24 14:30 Const General: no acute distress and alert Nutritional Appearance: obese Orientation/consciousness: Other orientation findings ( oriented) HEENT Head: Yes atraumatic Eyes General: appearance normal, both eyes and all related structures Sclerae: sclerae normal EOM: EOMs intact bilaterally Neck Neck: Yes supple Lymphatic: no lymphadenopathy noted Resp Effort & Inspection: normal respiratory effort and no use of accessory muscles Auscultation: clear to auscultation bilaterally Cardio Rate: regular rate Rhythm: regular rhythm Heart sounds: no gallops, no murmurs and no rubs Skin General skin exam: other ( warm) Extrem General: No clubbing, No cyanosis and Yes edema Assessment & Plan Assessment & Plan (1) Dyspnea: Code(s): R06.00 - Dyspnea, unspecified Category: Medical Plan: Unclear etiology, may have cardiac, pulmonary, obesity/deconditioning components. Will evaluate pulmonary component with pulmonary function test and start on empiric Breo. Continue albuterol MDI. (2) Environmental allergies: Code(s): Z91.09 - Other allergy status, other than to drugs and biological substances Category: Medical Plan: Will obtain IgE level, CBC with differential, and RAST panel for further evaluation. Orders: Orders Complete Blood Count Auto Diff Today Z91.09 - Other allergy status, other than to drugs and biological substances Resp Allergy Profile Region I Today Z91.09 - Other allergy status, other than to drugs and biological substances PFT pulmonary function test Today R06.00 - Dyspnea, unspecified Medications: New fluticasone furoate-vilanterol 200-25 mcg/dose (Breo Ellipta) 1 inh inhalation DAILY 1 ea 6RF Coding Level of Care Code New Pt Level 4 (84093) Diagnoses Dyspnea R06.00 Environmental allergies Z91.09
[2024-07-22 14:30] VITALS: BP 128/82; PULSE 77; O2SAT 100
== END 2024-07-22 15:03 | disposition home or self-care (01) ==
PROVIDERS: PCP Internal Medicine; Visit Provider Internal Medicine Pulmonary Disease
DX: R06.00 Dyspnea, unspecified (principal); Z91.09 Other allergy status, other than to drugs and biological substances
CPT/HCPCS: 99204

== ENCOUNTER 2024-11-12 13:54 | Outpatient (REF) | payer MEDICAID, SELFPAY ==
--- NOTE | 2024-11-12 14:05 | PFT_ITS ---
Flows: FEV1: 69 % of predicted at 2.01 L FVC: 64 % of predicted at 2.51 L FEV1/FVC: 83 % Bronchodilator response: Absent Volumes: Total lung capacity: 62 % of predicted at 3.87 L Residual volume: 67 % of predicted at 1.41 L Slow vital capacity: 59 % of predicted at 2.46 L Expiratory reserve volume: 1 % of predicted at 0.01 L Diffusion capacity: Mildly decreased, corrects to normal after adjustment for alveolar ventilation. Impression: Moderate restrictive ventilatory defect with no bronchodilator response. Decreased expiratory reserve volume suggests extrathoracic restriction likely secondary to abdominal obesity. Combination of restrictive ventilatory defect with decreased diffusion capacity suggests underlying pulmonary parenchymal disease. Clinical correlation is advised. MTDD
[2024-11-12 15:01] VITALS: PULSE 76
--- OUTSIDE RECORDS SUMMARY | 2024-11-12 16:04 | XMS_ITS | Encounter Summary ---
Author Organization [employer] Address [address] [place] [address] Care Team Providers Care Property Manager Name Role Phone Reyna Borges MD Primary Care Provide r Reason for Visit * Reason Comments Med Refill Encounter Details Date Type Department Care Team ([facility] st Contact Info) Description 06/26/2023 Refill [facility] [address] [place], [place] [phone] Reyna Borges MD [address] [place], [place] [phone] Social History Tobacco Use Types Packs/Day Years Used Date Smoking Tobacco: Never Smokeless Tobacco: Never Depression Answer Date Recorded Patient Health Questionnaire-9 Score 2 02/13/2023 Housing Stability Answer Date Recorded What is your housing situation today? I have lashaemarty esparza 06/30/[address] you li ve. Do you have problems with any of the following? None of the above 06/30/2023 Food Insecurity Answer Date Recorded Within the past 12 months, y ou worried that your food would run out before you got money to buy more: Never True 06/30/2023 Within the past 12 months,th e food you bought just didn't last and you didn't have enough money to get more: Never True Transportation Answer Date Recorded In the past 12 months, has l ack of transportation kept you from medical appts, meetings, work or from getting things needed for daily living? No 06/30/2023 Utilities Answer Date Recorded In the past 12 months, has t he electric, gas, oil or water company threatened to shut off services in your home? No 06/30/2023 Depression Answer Date Recorded Patient Health Questionnaire-2 Score 0 02/13/2023 Comments Unknown Sex and Gender Information Value Date Recorded Sex Assigned at Female 07/15/2022 10:14 AM EDT Legal Sex Female 10:14 AM EDT Gender Identity Female 07/15/2022 10:14 AM EDT Sexual Orientation Straight 07/15/2022 10 :14 AM EDT documented as of this encounter Plan of Treatment Upcoming Encounters Date Type Department Care Team (Late st Contact Info) Description 11/19/2024 9:30 AM EST Telemedicine [facility] MEDICINE [address] [place] [address] Maxine Gonzales, ELIJAH 12/16/2024 2:00 PM EDT Office Visit [facility] [address] [place], [place] [phone] Chelle Fragoso, OD [address] [place] [address] documented as of this encounter Visit Diagnoses Not on filedocumented in this encounter Additional Health Concerns Assessment Noted Time PHQ-9 Depression Total Score: 2 02/14/20 23 3:28 PM EDT documented as of this encounter Care Teams Property Manager Relationship Specialty Start Date End Date Reyna Borges MD [address] [place] [address] PCP - General Family Medicine 10/26/20 documented as of this encounter
--- OUTSIDE RECORDS SUMMARY | 2024-11-12 16:04 | XMS_ITS | Encounter Summary ---
Author Organization [employer] Address [address] [place] [address] Care Team Providers Care Clothes Model Name Role Phone Reyna Borges MD Primary Care Provide r Encounter Details Date Type Department Care Team (Late st Contact Info) Description 08/04/2023 Abstract [facility] MEDICINE [address] [place] [address] Daysi Bowden Social History Tobacco Use Types Packs/Day Years Used Date Smoking Tobacco: Never Smokeless Tobacco: Never Depression Answer Date Recorded Patient Health Questionnaire-9 Score 2 02/13/2023 Housing Stability Answer Date Recorded What is your housing situation today? I have lashae esparza 06/30/[address] you [...] Info) Description 11/19/2024 9:30 AM EST Telemedicine [facility] MEDICINE [address] [place] [address] Maxine Gonzales, RN 12/16/2024 2:00 PM EDT Office Visit [facility] OPT[facility] [address] [place] [address] Chelle Fragoso, OD [address] [place] [address] documented as of this encounter Visit Diagnoses Not on filedocumented in this encounter Additional Health Concerns Assessment Noted Time PHQ-9 Depression Total Score: 2 02/14/20 23 3:28 PM EDT documented as of this encounter Care Teams Clothes Model Relationship Specialty Start Date End Date Reyna Borges MD [address] [place] [address] PCP - General Family Medicine 10/26/20 documented as of this encounter
--- OUTSIDE RECORDS SUMMARY | 2024-11-12 16:04 | XMS_ITS | Encounter Summary ---
Author Organization [employer] Address [address] [place] [address] Care Team Providers Care Perpetual Inventory Clerk Name Role Phone Reyna Borges MD Primary Care Provide r Reason for Visit * Reason Comments Med Refill Encounter Details Date Type Department Care Team ([facility] st Contact Info) Description 09/06/2024 Refill [facility] MEDICINE [address] [place], [place] [phone] Reyna Borges MD [address] [place], [place] [phone] Paresis of single lower extremity (CMS/HCC) Social History Tobacco Use Types Packs/Day Years Used Date Smoking Tobacco: Never Passive Smoke Exposure: Never Smokeless Tobacco: Never Depression Answer Date [...] Info) Description 11/19/2024 9:30 AM EST Telemedicine [facility] MEDICINE [address] [place] [address] Maxine Gonzales RN 12/16/2024 2:00 PM EDT Office Visit [facility] OPT[facility] [address] [place] [address] [place], Chelle, OD [address] [place] [address] documented as of this encounter Visit Diagnoses Diagnosis Paresis of single lower extremity (CMS/HCC) documented in this encounter Additional Health Concerns Assessment Noted Time PHQ-9 Depression Total Score: 2 02/14/20 23 3:28 PM EDT documented as of this encounter Care Teams Perpetual Inventory Clerk Relationship Specialty Start Date End Date Reyna Borges MD [address] [place] [address] PCP - General Family Medicine 10/26/20 documented as of this encounter
--- OUTSIDE RECORDS SUMMARY | 2024-11-12 16:04 | XMS_ITS | Encounter Summary ---
Author Organization [employer] Address 75 [facility] 7t [place] [address] Care Team Providers Care Gas Pumper Name Role Phone Reyna Borges MD Primary Care Provide r Reason for Visit * Reason Onset Date Comments Durable Medical Equipment 08/26/2024 Encounter Details Date Type Department Care Team ([facility] Contact Info) Description 08/26/2024 Telephone [facility] MEDICINE [address] [place] [address] [phone] Reyna Borges MD 230 [place], [place] [phone] Durable Medical Equipment Social History Tobacco Use Types Packs/Day Years [...] AM EDT documented as of this encounter Miscellaneous Notes * Telephone Encounter - Remedios Rivero - 08/26/2024 10:25 AM EST Tc from pt requesting a new script for incontinence pads, pt states current pads are to thin and over leaks. Please contact: [phone] Taj[place] documented in this encounter Plan of Treatment Upcoming Encounters Date Type Department Care Team (Late st Contact Info) Description 11/19/2024 9:30 AM EST Telemedicine [facility] MEDICINE 230 [place] [address] Maxine Gonzales RN 12/16/2024 2:00 PM EDT Office Visit [facility] OPTOMETRY [address] [place], [place] [phone] Chelle Fragoso, OD 230 [place] [address] documented as of this encounter Visit Diagnoses Not on filedocumented in this encounter Additional Health Concerns Assessment Noted Time PHQ-9 Depression Total Score: 2 02/14/20 23 3:28 PM EDT documented as of this encounter Care Teams Gas Pumper Relationship Specialty Start Date End Date Reyna Borges MD 230 [place] [address] PCP - General Family Medicine 10/26/20 documented as of this encounter
--- OUTSIDE RECORDS SUMMARY | 2024-11-12 16:04 | XMS_ITS | Encounter Summary ---
Author Organization [email or web address] Address [address] [facility] [address] 7t [place] [address] Care Team Providers Care Adventure Therapist Name Role Phone Reyna Borges MD Primary Care Provide r Reason for Visit * Reason Comments Med Refill Encounter Details Date Type Department Care Team ([facility] st Contact Info) Description 06/20/2023 Refill [facility] MED & PEDS [address] [place], [place] [phone] Reyna Borges MD 230 [place] [address] Chronic low back pain, unspecified back pain laterality, unspecified whether sciatica present Social History Tobacco Use Types Packs/Day Years Used Date Smoking Tobacco: Never Smokeless Tobacco: Never Depression Answer Date Recorded Patient Health Questionnaire-9 Score 2 02/13/2023 Housing Stability Answer Date Recorded What is your housing situation today? I have lashaemarty esparza 06/24/[address] you li ve. Do you have problems with any of the following? None of the above 06/24/2023 Food Insecurity Answer Date Recorded Within the past 12 months, y ou worried that your food would run out before you got money to buy more: Never True 06/24/2023 Within the past 12 months,th e food you bought just didn't last and you didn't have enough money to get more: Never True 06/2023 Transportation Answer Date Recorded In the past 12 months, has l ack of transportation kept you from medical appts, meetings, work or from getting things needed for daily living? No 06/24/2023 Utilities Answer Date Recorded In the past 12 months, has t he electric, gas, oil or water [employer] threatened to shut off services in your home? No 06/24/2023 Depression Answer Date Recorded Patient Health Questionnaire-2 [...] Info) Description 11/19/2024 9:30 AM EST Telemedicine [facility] MEDICINE 230 [place] [address] Maxine Gonzales RN 12/16/2024 2:00 PM EDT Office Visit [facility] OPTOMETRY [address] [place] [address] [place], Chelle, OD 230 [place] [address] documented as of this encounter Visit Diagnoses Diagnosis Chronic low back pain, unspecified back pain laterality, unspecified whether sciatica present documented in this encounter Additional Health Concerns Assessment Noted Time PHQ-9 Depression Total Score: 2 02/14/20 23 3:28 PM EDT documented as of this encounter Care Teams Adventure Therapist Relationship Specialty Start Date End Date Reyna Borges MD 230 [place] [address] PCP - General Family Medicine 10/26/20 documented as of this encounter
--- OUTSIDE RECORDS SUMMARY | 2024-11-12 16:05 | XMS_ITS | Encounter Summary ---
Author Organization [employer] Address [address] [facility] [address] 7[address] [place] [address] Care Team Providers Care Oliver Filter Operator Name Role Phone Reyna Borges MD Primary Care Provide r Reason for Visit * Reason Comments Med Refill Encounter Details Date Type Department Care Team ([facility] st Contact Info) Description 10/10/2023 Refill [facility] CH[facility] MED & PEDS [address] [place], [place] [phone] Reyna Borges MD 230 [place], [place] [phone] Chronic low back pain, unspecified back pain [...] t he electric, gas, oil or water [employer] threatened to shut off services in your [...] Info) Description 11/19/2024 9:30 AM EST Telemedicine [facility] MEDICINE 230 [place] [address] Maxine Gonzales RN 12/16/2024 2:00 PM EDT Office Visit [facility] OPTOMETRY [address] [place] [address] [place], Chelle, OD 230 [place] [address] documented as of this encounter Visit Diagnoses Diagnosis Chronic low back pain, unspecified back pain laterality, unspecified whether sciatica present documented in this encounter Additional Health Concerns Assessment Noted Time PHQ-9 Depression Total Score: 2 02/14/20 23 3:28 PM EDT documented as of this encounter Care Teams Oliver Filter Operator Relationship Specialty Start Date End Date Reyna Borges MD 230 [place] [address] PCP - General Family Medicine 10/26/20 documented as of this encounter
--- OUTSIDE RECORDS SUMMARY | 2024-11-12 16:05 | XMS_ITS | Encounter Summary ---
Author Organization [employer] Address [address] [facility] [address] 7t [place] [address] Care Team Providers Care Cell Maker Name Role Phone Reyna Borges MD Primary Care Provide r Reason for Visit * Reason Comments Med Refill Encounter Details Date Type Department Care Team ([facility] st Contact Info) Description 10/24/2023 Refill [facility] CH[facility] MED & PEDS [address] [place], [place] [phone] Reyna Borges MD 230 [place], [place] [phone] Chronic low back pain, unspecified back pain [...] t he electric, gas, oil or water [employer] threatened to shut off services in your [...] Info) Description 11/19/2024 9:30 AM EST Telemedicine [facility] MEDICINE 230 [place] [address] Maxine Gonzales RN 12/16/2024 2:00 PM EDT Office Visit [facility] OPTOMETRY [address] [place] [address] [place], Chelle, OD 230 [place] [address] documented as of this encounter Visit Diagnoses Diagnosis Chronic low back pain, unspecified back pain laterality, unspecified whether sciatica present documented in this encounter Additional Health Concerns Assessment Noted Time PHQ-9 Depression Total Score: 2 02/14/20 23 3:28 PM EDT documented as of this encounter Care Teams Cell Maker Relationship Specialty Start Date End Date Reyna Borges MD 230 [place] [address] PCP - General Family Medicine 10/26/20 documented as of this encounter
--- OUTSIDE RECORDS SUMMARY | 2024-11-12 16:05 | XMS_ITS | Encounter Summary ---
Author Organization [employer] Address 75 [facility] [address] [place] [address] Care Team Providers Care Draftsperson Name Role Phone Reyna Borges MD Primary Care Provide r Encounter Details Date Type Department Care Team (Late st Contact Info) Description 12/09/2022 Orders Only [facility] MEDICINE 230 [place] [address] Kathie Rod LPN Social History Tobacco Use Types Packs/Day Years Used Date Smoking Tobacco: Never Assessed Comments Unknown Sex and Gender Information Value Date Recorded Sex Assigned at Female 07/15/2022 10:14 AM EDT Legal Sex Female 10:14 AM EDT Gender Identity Female 07/15/2022 10:14 AM EDT Sexual Orientation Straight 07/15/2022 10 :14 AM EDT documented as of this encounter Plan of Treatment Upcoming Encounters Date Type Department Care Team (Late st Contact Info) Description 11/19/2024 9:30 AM EST Telemedicine [facility] MEDICINE [address] [place] [address] Maxine Gonzales RN 12/16/2024 2:00 PM EDT Office Visit [facility] OPTOMETRY [address] [place] [address] Chelle Fragoso, OD 230 [place] [address] documented as of this encounter Visit Diagnoses Not on filedocumented in this encounter Care Teams Draftsperson Relationship Specialty Start Date End Date Reyna Borges MD 230 [place] [address] PCP - General Family Medicine 10/26/20 documented as of this encounter
--- OUTSIDE RECORDS SUMMARY | 2024-11-12 16:05 | XMS_ITS | Encounter Summary ---
Author Organization [employer] Address [address] [facility] [address] 7t [place] [address] Care Team Providers Care Sorter Laundry Articles Name Role Phone Reyna Borges MD Primary Care Provide r Reason for Visit * Reason Comments Med Refill Encounter Details Date Type Department Care Team ([facility] st Contact Info) Description 11/28/2023 Refill [facility] MEDICINE 230 [place], [place] [phone] Melany Torrez MD 230 [place] [address] Chronic low back pain, unspecified back pain [...] Info) Description 11/19/2024 9:30 AM EST Telemedicine [facility] MEDICINE [address] [place] [address] Maxine Gonzales, ELIJAH 12/16/2024 2:00 PM EDT Office Visit [facility] OPTOMETRY [address] [place] [address] [place], Chelle, OD 230 [place] [address] documented as of this encounter Visit Diagnoses Diagnosis Chronic low back pain, unspecified back pain laterality, unspecified whether sciatica present documented in this encounter Additional Health Concerns Assessment Noted Time PHQ-9 Depression Total Score: 2 02/14/20 23 3:28 PM EDT documented as of this encounter Care Teams Sorter Laundry Articles Relationship Specialty Start Date End Date Reyna Borges MD [address] [place] [address] PCP - General Family Medicine 10/26/20 documented as of this encounter
--- OUTSIDE RECORDS SUMMARY | 2024-11-12 16:05 | XMS_ITS | Encounter Summary ---
Author Organization [employer] Address [address] [facility] [address] 7t [place] [address] Care Team Providers Care Produce Runner Name Role Phone Reyna Borges MD Primary Care Provide r Encounter Details Date Type Department Care Team (Late st Contact Info) Description 08/13/2023 Abstract [facility] MEDICINE 230 [place] [address] Daysi Bowden Social History Tobacco Use Types [...] Info) Description 11/19/2024 9:30 AM EST Telemedicine [facility] MEDICINE 230 [place] [address] Maxine Gonzales, RN 12/16/2024 2:00 PM EDT Office Visit [facility] OPTOMETRY [address] [place] [address] Chelle Fragoso, OD 230 [place] [address] documented as of this encounter Visit Diagnoses Not on filedocumented in this encounter Additional Health Concerns Assessment Noted Time PHQ-9 Depression Total Score: 2 02/14/20 23 3:28 PM EDT documented as of this encounter Care Teams Produce Runner Relationship Specialty Start Date End Date Reyna Borges MD 230 [place] [address] PCP - General Family Medicine 10/26/20 documented as of this encounter
--- OUTSIDE RECORDS SUMMARY | 2024-11-12 16:05 | XMS_ITS | Encounter Summary ---
Author Organization [employer] Address 75 [facility] 7t [place] [address] Care Team Providers Care Public Speaking Instructor Name Role Phone Reyna Borges MD Primary Care Provide r Reason for Visit * Reason Onset Date Comments PT1 10/20/2024 Encounter Details Date Type Department Care Team ([facility] st Contact Info) Description 10/20/2024 Telephone [facility] MEDICINE [address] [place] [address] [phone] Reyna Borges MD [address] [place], [place] [phone] PT1 Social History Tobacco Use Types Packs/Day Years [...] Miscellaneous Notes * Telephone Encounter - Remedios Ravigo - 10/20/2024 2:08 PM EST 1 of 1 Patient calling requesting PT1 Home Address verified: Y/N: Yes Provider name or facility name: [address] [place] [address]. Escort needed: Y/N: Yes Do you have a wheelchair: Y/N: Yes If yes- Manual or electric: Electric Visits: (2x monthly) 1 of 2 Patient calling requesting PT1 Home Address verified: Y/N: Yes Provider name or facility name: [facility] [address] [facility] [address] Escort needed: Y/N: Yes Do you have a wheelchair: Y/N: Yes If yes- Manual or electric: Electric Visits: (1x monthly) 1 of 3 Patient calling requesting PT1 Home Address verified: Y/N: Yes Provider name or facility name: [facility], [address] [place] [address] Escort needed: Y/N: Yes Do you have a wheelchair: Y/N: Yes If yes- Manual or electric: Electric Visits: (1x monthly) 1 of 4 Patient calling requesting PT1 Home Address verified: Y/N: Yes Provider name or facility name: [facility], [address], [place] [address] Escort needed: Y/N: Yes Do you have a wheelchair: Y/N: Yes If yes- Manual or electric: Electric Visits: (1x monthly) 1 of 5 Patient calling requesting PT1 Home Address verified: Y/N: Yes Provider name or facility name: [facility], [address] [place] [address]. Escort needed: Y/N: Yes Do you have a wheelchair: Y/N: Yes If yes- Manual or electric: Electric Visits: (1x monthly) documented in this encounter Plan of Treatment Upcoming Encounters Date Type Department Care Team (Late st Contact Info) Description 11/19/2024 9:30 AM EST Telemedicine [facility] MEDICINE 230 [place] [address] Maxine Gonazles RN 12/16/2024 2:00 PM EDT Office Visit [facility] OPTOMETRY [address] [place] [address] Chelle Fragoso, OD 230 [place] [address] documented as of this encounter Visit Diagnoses Not on filedocumented in this encounter Additional Health Concerns Assessment Noted Time PHQ-9 Depression Total Score: 2 02/14/20 23 3:28 PM EDT documented as of this encounter Care Teams Public Speaking Instructor Relationship Specialty Start Date End Date Reyna Borges MD 230 [place] [address] PCP - General Family Medicine 10/26/20 documented as of this encounter
--- OUTSIDE RECORDS SUMMARY | 2024-11-12 16:05 | XMS_ITS | Encounter Summary ---
Author Organization [employer] Address 75 [facility] 7t [place] [address] Care Team Providers Care Network Account Manager Name Role Phone Reyna Borges MD Primary Care Provide r Reason for Visit * Reason Onset Date Comments ER Follow-up 11/07/2023 Encounter Details Date Type Department Care Team ([facility] Contact Info) Description 11/07/2023 Telephone [facility] MEDICINE [address] [place] [address] [phone] Reyna Borges MD 230 [place], [place] [phone] ER Follow-up Social History Tobacco Use Types Packs/Day Years [...] encounter Miscellaneous Notes * Telephone Encounter - Daniel Delgadillo - 11/07/2023 12:27 PM EST Patient calling to report ED visit on : Date: 11/03 Hospital: [facility] Seen for: Blood Clots Patient advised will forward to team nurse for follow up documented in this encounter Plan of Treatment Upcoming Encounters Date Type Department Care Team (Late st Contact Info) Description 11/19/2024 9:30 AM EST Telemedicine [facility] MEDICINE 230 [place] [address] Maxine Gonzales, ELIJAH 12/16/2024 2:00 PM EDT Office Visit [facility] OPTOMETRY [address] [place], [place] [phone] Chelle Fragoso, OD 230 [place] [address] documented as of this encounter Visit Diagnoses Not on filedocumented in this encounter Additional Health Concerns Assessment Noted Time PHQ-9 Depression Total Score: 2 02/14/20 23 3:28 PM EDT documented as of this encounter Care Teams Network Account Manager Relationship Specialty Start Date End Date Reyna Borges MD 230 [place] [address] PCP - General Family Medicine 10/26/20 documented as of this encounter
--- OUTSIDE RECORDS SUMMARY | 2024-11-12 16:05 | XMS_ITS | Encounter Summary ---
Author Organization [employer] Address 75 [facility] 7t [place] [address] Care Team Providers Care Janitor Helper Name Role Phone Reyna Borges MD Primary Care Provide r Reason for Visit * Reason Comments Med Refill Encounter Details Date Type Department Care Team (Late Contact Info) Description 05/20/2023 Refill [facility] CHC MED & PEDS [address] [place], [place] [phone] Reyna Borges MD 230 [place] [address] Social History Tobacco Use Types Packs/Day Years Used Date Smoking Tobacco: Never Smokeless Tobacco: Never Depression Answer Date Recorded Patient Health Questionnaire-9 Score 2 02/13/2023 Depression Answer Date Recorded Patient Health Questionnaire-2 [...] Encounters Date Type Department Care Team (Late Contact Info) Description 11/19/2024 9:30 AM EST Telemedicine [facility] MEDICINE 230 [place], [place] [phone] Maxine Gonzales RN 12/16/2024 2:00 PM EDT Office Visit [facility] OPTOMETRY [address] [place], [place] [phone] Chelle Fragoso, OD 230 [place] [address] documented as of this encounter Visit Diagnoses Not on filedocumented in this encounter Additional Health Concerns Assessment Noted Time PHQ-9 Depression Total Score: 2 02/14/20 23 3:28 PM EDT documented as of this encounter Care Teams Janitor Helper Relationship Specialty Start Date End Date Reyna Borges MD [address] [place] [address] PCP - General Family Medicine 10/26/20 documented as of this encounter
--- OUTSIDE RECORDS SUMMARY | 2024-11-12 16:05 | XMS_ITS | Encounter Summary ---
Author Organization [employer] Address 75 [facility] 7t [place] [address] Care Team Providers Care Hairspring Vibrator Name Role Phone Reyna Borges MD Primary Care Provide r Reason for Visit * Reason Onset Date Comments FYI 12/22/2023 Encounter Details Date Type Department Care Team ([facility] st Contact Info) Description 12/22/2023 Telephone [facility] MEDICINE [address] [place] [address] [phone] Reyna Borges MD 230 [place], [place] [phone] FYI Social History Tobacco Use Types Packs/Day Years [...] * Telephone Encounter - Daniel Delgadillo - 12/22/2023 3:17 PM EDT Tc from Kathy the [facility] at [email or web address] calling to report to the provider the patients elevated heart rate it is 105-115 Any questions please call Kathy at [phone] documented in this encounter Plan of Treatment Upcoming Encounters Date Type Department Care Team (Late st Contact Info) Description 11/19/2024 9:30 AM EST Telemedicine [facility] MEDICINE 230 [place] [address] Maxine Gonzales, ELIJAH 12/16/2024 2:00 PM EDT Office Visit [facility] OPTOMETRY [address] [place], [place] [phone] Chelle Fragoso, OD 230 [place] [address] documented as of this encounter Visit Diagnoses Not on filedocumented in this encounter Additional Health Concerns Assessment Noted Time PHQ-9 Depression Total Score: 2 02/14/20 23 3:28 PM EDT documented as of this encounter Care Teams Hairspring Vibrator Relationship Specialty Start Date End Date Reyna Borges MD 230 [place] [address] PCP - General Family Medicine 10/26/20 documented as of this encounter
--- OUTSIDE RECORDS SUMMARY | 2024-11-12 16:05 | XMS_ITS | Encounter Summary ---
Author Organization [employer] Address 75 [facility] 7t [place] [address] Care Team Providers Care Clip And Hanger Attacher Name Role Phone Reyna Borges MD Primary Care Provide r Reason for Visit * Reason Comments Care Coordination CHW outreach for SDO H PT-1 and food needs-referral completed Encounter Details Date Type Department Care Team (Latest Contact Info) Description 10/20/2024 Patient Outreach [facility] MEDICINE [address] [place] [phone] Reyna Borges MD 230 [place] [address] Care Coordination (CHW outreach for SDOH PT-1 and food needs-referral completed /) Social History Tobacco Use Types Packs/Day Years [...] AM EDT documented as of this encounter Progress Notes * Unruly Cao - 10/20/2024 2:50 PM EST CHW Unruly Cao, placed outbound call to patient for assistance with SDOH as a referral was received by the provider. Patient's name and were confirmed. Patient screened positive for the following SDOH transportation & food insecurities. CHW requested PT-1 plus referred family to B pantries in the local area. Patient agree to follow up with plan. Patient educated on extended clinic hours on Mondays through Wednesdays, and Walk-In Urgent Care Located in [facility]. Patient provided with after-hours line for [facility], , which offer night time triage service and option to transfer to concrete mixing plant laborer provider if needed. documented in this encounter Plan of Treatment Upcoming Encounters Date Type Department Care Team (Late st Contact Info) Description 11/19/2024 9:30 AM EST Telemedicine [facility] MEDICINE 230 [place], [place] [phone] Maxine Gonzales RN 12/16/2024 2:00 PM EDT Office Visit [facility] OPTOMETRY [address] [place], [place] [phone] Chelle Fragoso, KATIANA 230 [place] [address] documented as of this encounter Visit Diagnoses Not on filedocumented in this encounter Additional Health Concerns Assessment Noted Time PHQ-9 Depression Total Score: 2 06/01/20 23 3:28 PM EDT documented as of this encounter Care Teams Clip And Hanger Attacher Relationship Specialty Start Date End Date Reyna Borges MD [address] [place] [address] PCP - General Family Medicine 10/26/20 documented as of this encounter
--- OUTSIDE RECORDS SUMMARY | 2024-11-12 16:05 | XMS_ITS | Encounter Summary ---
Author Organization [employer] Address [address] [facility] [address] [place] [address] Care Team Providers Care Tracer Bullet Charging Machine Operator Name Role Phone Reyna Borges MD Primary Care Provide r Reason for Visit * Reason Comments Med Refill Encounter Details Date Type Department Care Team ([facility] st Contact Info) Description 10/31/2024 Refill [facility] CHC MED & PEDS [address] [place], [place] [phone] Reyna Borges MD 230 [place] [address] Anemia, unspecified type; Vitamin D deficiency; Other specified hypothyroidism Social History Tobacco Use Types Packs/Day Years [...] t he electric, gas, oil or water [employer] threatened to shut off services in your [...] Info) Description 11/19/2024 9:30 AM EST Telemedicine [facility] MEDICINE [address] [place] [address] Maxine Gonzales RN 12/16/2024 2:00 PM EDT Office Visit [facility] OPTOMETRY [address] [place] [address] [place], Chelle, OD 230 [place] [address] documented as of this encounter Visit Diagnoses Diagnosis Anemia, unspecified type Vitamin D deficiency Other specified hypothyroidism documented in this encounter Additional Health Concerns Assessment Noted Time PHQ-9 Depression Total Score: 2 02/14/20 23 3:28 PM EDT documented as of this encounter Care Teams Tracer Bullet Charging Machine Operator Relationship Specialty Start Date End Date Reyna Borges MD 230 [place] [address] PCP - General Family Medicine 10/26/20 documented as of this encounter
--- OUTSIDE RECORDS SUMMARY | 2024-11-12 16:05 | XMS_ITS | Encounter Summary ---
Author Organization [employer] Address [address] [place] [address] Care Team Providers Care Electromechanical Engineer Name Role Phone Reyna Borges MD Primary Care Provide r Reason for Visit * Reason Onset Date Comments Med Refill 10/13/2024 Encounter Details Date Type Department Care Team ([facility] st Contact Info) Description 10/13/2024 Refill [facility] MED & PEDS [address] [place], [place] [phone] Reyna Borges MD [address] [place] [address] Chronic low back pain, unspecified back pain [...] as of this encounter Miscellaneous Notes * Addendum Note - Mima Gonzales RN - 10/13/2024 11:48 AM ESTAddended by: MIMA GONZALES on: 10/13/2024 11:48 AM Modules accepted: Orders * Telephone Encounter - Kathie Rod LPN - 10/13/2024 10:02 AM EST Received request on oxyCODONE (Roxicodone) 10 MG immediate release tablet documented in this encounter Plan of Treatment Upcoming Encounters Date Type Department Care Team (Late st Contact Info) Description 11/19/2024 9:30 AM EST Telemedicine [facility] MEDICINE [address] [place] [address] Mima Gonzales RN 12/16/2024 2:00 PM EDT Office Visit [facility] OPTOMETRY [address] [place] [address] RichmondChelle beonit, OD 230 [place] [address] documented as of this encounter Visit Diagnoses Diagnosis Chronic low back pain, unspecified back pain laterality, unspecified whether sciatica present documented in this encounter Additional Health Concerns Assessment Noted Time PHQ-9 Depression Total Score: 2 02/14/20 23 3:28 PM EDT documented as of this encounter Care Teams Electromechanical Engineer Relationship Specialty Start Date End Date Reyna Borges MD [address] [place] [address] PCP - General Family Medicine 10/26/20 documented as of this encounter
--- OUTSIDE RECORDS SUMMARY | 2024-11-12 16:05 | XMS_ITS | Encounter Summary ---
Author Organization [employer] [facility] [employer] Address [address] 7[address] [place] [address] Care Team Providers Care Inventory Manager Name Role Phone Reyna Borges MD Primary Care Provide r Reason for Visit * Reason Comments Med Refill Encounter Details Date Type Department Care Team ([facility] st Contact Info) Description 11/03/2024 Refill [facility] CHC MED & PEDS [address] [place], [place] [phone] Reyna Borges MD [address] [place], [place] [phone] Paresis of single lower extremity (CMS/HCC) Social [...] the past 12 months, has t he [employer] gas, oil or water company threatened to [...] Info) Description 11/19/2024 9:30 AM EST Telemedicine [facility] MEDICINE 230 [place] [address] Maxine Gonzales, RN 12/16/2024 2:00 PM EDT Office Visit [facility] OPTOMETRY [address] [place] [address] [place], Chelle, OD 230 [place] [address] documented as of this encounter Visit Diagnoses Diagnosis Paresis of single lower extremity (CMS/HCC) documented in this encounter Additional Health Concerns Assessment Noted Time PHQ-9 Depression Total Score: 2 02/14/20 23 3:28 PM EDT documented as of this encounter Care Teams Inventory Manager Relationship Specialty Start Date End Date Reyna Borges MD [address] [place] [address] PCP - General Family Medicine 10/26/20 documented as of this encounter
--- OUTSIDE RECORDS SUMMARY | 2024-11-12 16:05 | XMS_ITS | Encounter Summary ---
Author Organization [employer] Address [address] [facility] 7[address] [place] [address] Care Team Providers Care Clerical Transcriber Name Role Phone Reyna Borges MD Primary Care Provide r Encounter Details Date Type Department Care Team (Late Contact Info) Description 05/21/2023 Orders Only [facility] CHC MED & PEDS [address] [place], [place] [phone] Fiordaliza Bernabe LPN Social History Tobacco Use Types Packs/Day [...] Info) Description 11/19/2024 9:30 AM EST Telemedicine [facility] MEDICINE 230 [place] [address] Maxine Gonzales, RN 12/16/2024 2:00 PM EDT Office Visit [facility] OPTOMETRY [address] [place], [place] [phone] Chelle Fragoso, OD [address] [place] [address] documented as of this encounter Visit Diagnoses Not on filedocumented in this encounter Additional Health Concerns Assessment Noted Time PHQ-9 Depression Total Score: 2 02/14/20 23 3:28 PM EDT documented as of this encounter Care Teams Clerical Transcriber Relationship Specialty Start Date End Date Reyna Borges MD 230 [place] [address] PCP - General Family Medicine 10/26/20 documented as of this encounter
--- OUTSIDE RECORDS SUMMARY | 2024-11-12 16:05 | XMS_ITS | Clinical Summary ---
Author Organization [address] [facility] Address [address] [place] [address] Phone Care Team Providers Care Plater Production Name Role Phone Reyna Borges MD Primary Care Provide r Social History Tobacco Use Types Packs/Day Years Used Date Smoking Tobacco: Never Assessed Comments Unknown Sex and Gender Information Value Date Recorded Sex Assigned at Not on file Legal Sex Female 4:38 AM EST Gender Identity Not on file Sexual Orientation Not on file Plan of Treatment Upcoming Encounters Date Type Department Care Team ([facility] Contact Info) Description 12/20/2024 2:45 PM EDT Office Visit Orthopedic Surgery - [place] [address] [phone] Enmanuel Mccray, DPM [address] [address] Health Maintenance Due Date Last Done Comments Breast Cancer Screening 1965 DTaP,Tdap,and Td Vaccines (1 - Tdap) 1984 Hepatitis B Vaccines (1 of 3 - 19+ 3-dose series) 1984 Cervical Cancer Screening: P ap Smear 1986 Pneumococcal Vaccine: 50+ Ye ars (1 of 1 - PCV) 2015 Zoster Vaccines (1 of 2) 2015 COVID-19 Vaccine (2023-2 5 season) 2024 Influenza Vaccine (#1) 2024 Colorectal Cancer Screening: Colonoscopy 08/11/2024 Depression Screening 08/11/2024 HIV Screening 08/11/2024 Hepatitis C Screening 08/11/2024 Social Influencers of Health Screening 08/11/2024 RSV Immunization Patients 60 + Years Old (1 - 1-dose 75+ series) 2040 HIB Vaccines Aged Out No longer eligi ble based on patient's age to complete this topic HPV Vaccines Aged Out No longer eligi ble based on patient's age to complete this topic Hepatitis A Vaccines Aged Out No long er eligible based on patient's age to complete this topic IPV Vaccines Aged Out No longer eligi ble based on patient's age to complete this topic MMR Vaccines Aged Out No longer eligi ble based on patient's age to complete this topic Meningococcal ACWY Vaccine Aged Out N o longer eligible based on patient's age to complete this topic Meningococcal B Vacine Aged Out No lo nger eligible based on patient's age to complete this topic Pneumococcal Vaccine: Pediat rics (0 to 5 Years) and At-Risk Patients (6 to 64 Years) Aged Out No longer eligible b ased on patient's age to complete this topic RSV Immunization Patients Un stefanie 20 months Aged Out No longer eligible b ased on patient's age to complete this topic Varicella Vaccines Aged Out No longer eligible based on patient's age to complete this topic Insurance MEDICAID - [place] Care Teams Plater Production Relationship Specialty Start Date End Date Reyna Borges MD [address] [place] [phone] PCP - General 07/07/24
--- OUTSIDE RECORDS SUMMARY | 2024-11-12 16:05 | XMS_ITS | Encounter Summary ---
Author Organization [employer] Address [address] [facility] [address] [place] [address] Care Team Providers Care Slag Dumper Name Role Phone Reyna Borges MD Primary Care Provide r Encounter Details Date Type Department Care Team (Late st Contact Info) Description 01/02/2023 Orders Only [facility] MEDICINE [address] [place] [address] Kathie Rod LPN Social History Tobacco Use [...] Info) Description 11/19/2024 9:30 AM EST Telemedicine [facility] MEDICINE 230 [place] [address] Maxine Gonzales RN 12/16/2024 2:00 PM EDT Office Visit [facility] OPTOMETRY [address] [place] [address] Chelle Fragoso, OD 230 [place] [address] documented as of this encounter Visit Diagnoses Not on filedocumented in this encounter Care Teams Slag Dumper Relationship Specialty Start Date End Date Reyna Borges MD 230 [place] [address] PCP - General Family Medicine 10/26/20 documented as of this encounter
--- OUTSIDE RECORDS SUMMARY | 2024-11-12 16:05 | XMS_ITS | Encounter Summary ---
Author Organization [employer] Address [address] [facility] [address] [address] Care Team Providers Care Boat Engine Mechanic Name Role Phone Reyna Borges MD Primary Care Provide r Reason for Visit * Reason Comments Med Refill Encounter Details Date Type Department Care Team (Late st Contact Info) Description 02/23/2023 Refill [facility] [address] [place] [phone] Fiordaliza Luque DO [address] [place], [place] [phone] Anemia, unspecified type Social History Tobacco Use Types Packs/Day Years Used Date Smoking Tobacco: Never Assessed Depression Answer Date Recorded Patient Health Questionnaire-9 Score 2 02/13/2023 Depression Answer Date Recorded Patient Health Questionnaire-2 Score 0 02/13/2023 Comments Unknown Sex and Gender Information Value Date Recorded Sex Assigned at Female 07/15/2022 10:14 AM EDT Legal Sex Female 10:14 AM EDT Gender Identity Female 07/15/2022 10:14 AM EDT Sexual Orientation Straight 07/15/2022 10 :14 AM EDT COVID-19 Exposure Response Date Recorded In the last 10 days, have yo u been in contact with someone who was confirmed or suspected to have Coronavirus/COVID-19? No / Unsure 02/13/2023 3:09 PM EDT documented as of this encounter Plan of Treatment Upcoming Encounters Date Type Department Care Team (Late Contact Info) Description 11/19/2024 9:30 AM EST Telemedicine [facility] MEDICINE 230 [place], [place] [phone] Maxine Gonzales RN 12/16/2024 2:00 PM EDT Office Visit [facility] OPTOMETRY [address] [place] [address] Chelle Fragoso, OD 230 [place] [address] documented as of this encounter Visit Diagnoses Diagnosis Anemia, unspecified type documented in this encounter Additional Health Concerns Assessment Noted Time PHQ-9 Depression Total Score: 2 02/14/20 23 3:28 PM EDT documented as of this encounter Care Teams Boat Engine Mechanic Relationship Specialty Start Date End Date Reyna Borges MD [address] [place], [place] [phone] PCP - General Family Medicine 10/26/20 documented as of this encounter
--- OUTSIDE RECORDS SUMMARY | 2024-11-12 16:05 | XMS_ITS | Encounter Summary ---
Author Organization [employer] Address [address] [facility] [address] [place] [address] Care Team Providers Care Hotshot Superintendent Name Role Phone Reyna Borges MD Primary Care Provide r Reason for Visit * Reason Onset Date Comments Durable Medical Equipment 10/20/2024 Encounter Details Date Type Department Care Team ([facility] Contact Info) Description 10/20/2024 Telephone [facility] MEDICINE [address] [place] [phone] Reyna Borges MD [address] [place], [place] [phone] Durable Medical Equipment Social History Tobacco Use [...] encounter Miscellaneous Notes * Telephone Encounter - Shania Diaz - 11/03/2024 2:08 PM EST DME for Power Wheel Chair Evaluation signed and faxed to [facility] . Confirmation received and sent to scan. If patient calls to check status on above, please advise [facility] to [facility] . * Telephone Encounter - Shania Diaz - 10/26/2024 3:14 PM EST DME RX for Power Wheelchair Evaluation generated and placed on providers desk for signature. * Telephone Encounter - Remedios Rivero - 10/20/2024 1:59 PM EST Tc from pt requesting electric wheelchair. [employer] [place], [place] Phone. [phone] documented in this encounter Plan of Treatment Upcoming Encounters Date Type Department Care Team (Late st Contact Info) Description 11/19/2024 9:30 AM EST Telemedicine [facility] MEDICINE [address] [place], [place] [phone] Maxine Gonzales RN 12/16/2024 2:00 PM EDT Office Visit [facility] OPTOMETRY [address] [place] [address] Chelle Fragoso, OD [address] [place] [address] documented as of this encounter Visit Diagnoses Not on filedocumented in this encounter Additional Health Concerns Assessment Noted Time PHQ-9 Depression Total Score: 2 02/14/20 23 3:28 PM EDT documented as of this encounter Care Teams Hotshot Superintendent Relationship Specialty Start Date End Date Reyna Borges MD [address] [place] [address] PCP - General Family Medicine 10/26/20 documented as of this encounter
--- OUTSIDE RECORDS SUMMARY | 2024-11-12 16:05 | XMS_ITS | Encounter Summary ---
Author Organization [employer] Address [address] [facility] [facility] [address] [place] [address] Care Team Providers Care Home And School Visitor Name Role Phone Reyna Borges MD Primary Care Provide r Reason for Visit * Reason Onset Date Comments Med Refill 11/09/2024 Encounter Details Date Type Department Care Team ([facility] st Contact Info) Description 11/09/[address] [facility] CHC MED & PEDS [address] [place], [place] [phone] Reyna Borges MD [address] [place] [address] Chronic low back pain, unspecified back pain [...] Addendum Note - Mima Gonzales RN - 11/10/2024 11:44 AM ESTAddended by: MIMA GONZALES on: 11/10/2024 11:44 AM Modules accepted: Orders * Telephone Encounter - Kathie Rod LPN - 11/09/2024 3:08 PM EST Received request on oxyCODONE (Roxicodone) 10 MG immediate release tablet documented in this encounter Plan of Treatment Upcoming Encounters Date Type Department Care Team (Late st Contact Info) Description 11/19/2024 9:30 AM EST Telemedicine [facility] MEDICINE [address] [place] [address] Mima Gonzales RN 12/16/2024 2:00 PM EDT Office Visit [facility] OPTOMETRY [address] [place] [address] RichmondChelle benoit, OD 230 [place] [address] documented as of this encounter Visit Diagnoses Diagnosis Chronic low back pain, unspecified back pain laterality, unspecified whether sciatica present documented in this encounter Additional Health Concerns Assessment Noted Time PHQ-9 Depression Total Score: 2 02/14/20 23 3:28 PM EDT documented as of this encounter Care Teams Home And School Visitor Relationship Specialty Start Date End Date Reyna Borges MD [address] [place] [address] PCP - General Family Medicine 10/26/20 documented as of this encounter
--- OUTSIDE RECORDS SUMMARY | 2024-11-12 16:05 | XMS_ITS | Clinical Summary ---
Author Organization [employer] Address [address] [facility] 7[address] [place] [address] Care Team Providers Care Triage Registered Nurse Name Role Phone Reyna Borges MD Primary Care Provide r Allergies Active Allergy Reactions Criticality Noted Date Comments Amoxicillin 12/04/2010 Other reaction(s): face swelled Amoxicillin-Pot Clavulanate 07/04/2021 Other reaction(s): Other (see comments) Benzonatate 12/04/2010 Other reaction(s): unspecified Clavulanic Acid 12/04/2010 Other reaction(s): face swelled Doxazosin 07/04/2021 Other reaction(s): Other (see comments) Morphine 12/04/2010 Other reaction(s): elev BP, tachycardia, SOB Niacin 01/21/2013 Other reaction(s): face red & numb, SOB Penicillins 03/27/2023 Medications docusate sodium (Colace) 100 MG capsule TAKE 1 CAPSULE BY MOUTH TWICE DAILY 180 capsule 1 023 Active bumetanide (Bumex) 2 MG tablet Take 1 tablet by mouth 2 times daily. Active Blood Glucose Monitoring Suppl (FreeStyle Lite) device Inject 1 each under the skin 2 times daily. 1 each 024 Active polyethylene glycol, PEG, 3350 (MiraLax) 17 GM/SCOOP powder Take 17 g by mouth if needed (Constipation) . Mix with 8 oz of water 238 g 024 Active naloxone (Narcan) 4 mg/0.1 mL nasal sprayIndications: Chronic low back pain, unspecified back pain laterality, unspecified whether sciatica present Administer 1 spray (4 mg) into affected nostril(s) if needed for opioid reversal. May repeat every 2-3 minutes if needed, alternating nostrils, until medical assistance becomes available. 2 each 3 024 2024 Active TRUEplus Lancets 33G miscIndications:T ype 2 diabetes mellitus with hyperglycemia, with long-term current use of insulin ([facility]) TEST BLOOD SUGAR EVERY DAY BEFORE BREAKFAST 100 each Active metFORMIN (Glucophage) 500 MG tablet TAKE 1 TABLET BY MOUTH TWICE DAILY IN THE MORNING AND IN THE EVENING WITH MEALS 180 tablet 3 Active loratadine (Claritin) 10 MG tablet TAKE 1 TABLET BY MOUTH EVERY DAY 90 tablet 3 Active Spacer/Aero-Holdi ng Chambers deviceIndications :Chronic cough,Shortness of breath 1 each every 6 (six) hours if needed (use Q 6hrs if shortness of breath or persistent cough). 1 each Active SUMAtriptan (Imitrex) 50 MG tablet TAKE 1 TABLET BY MOUTH AT ONSET OF MIGRAINE. MAY REPEAT ONCE AFTER 2 HOURS IF NEEDED. NO MORE THAN 2 TABLETS PER DAY 9 tablet 5 Active lidocaine (Lidoderm) 5 % patch APPLY 1 PATCH TOPICALLY TO SKIN, LEAVE ON FOR 12 HOURS AND OFF FOR 12 HOURS DIRECTED 30 patch 11 Active metoprolol succinate XL (Toprol-XL) 50 MG 24 hr tablet TAKE 1 TABLET BY MOUTH EVERY MORNING 90 tablet 1 Active FREESTYLE LITE test strip TEST BLOOD SUGAR ONCE DAILY BEFORE BREAKFAST 50 strip 11 Active verapamil SR (Calan SR) 180 MG ER tabletIndications :Hypertension, unspecified type TAKE 1 TABLET BY MOUTH EVERY EVENING WITH FOOD 90 tablet 11 Active melatonin 5 MG tablet TAKE 2 TABLETS BY MOUTH EVERY DAY AT BEDTIME 60 tablet 4 Active Ventolin HFA 108 (90 Base) MCG/ACT inhalerIndication s:Chronic cough,Shortness of breath INHALE 2 PUFFS EVERY 6 HOURS NEEDED FOR WHEEZING 18 g Active Ferrous Sulfate (iron) 325 (65 Fe) MG tabletIndications :Anemia, unspecified type TAKE 1 TABLET BY MOUTH TWICE DAILY IN THE MORNING AND IN THE EVENING WITH ORANGE JUICE 180 tablet 1 025 Active cholecalciferol (D3 Super Strength) 50 MCG (1999 UT) capsuleIndication s:Vitamin D deficiency TAKE 1 CAPSULE BY MOUTH EVERY MORNING 90 capsule 1 025 Active irbesartan (Avapro) 300 MG tablet TAKE 1 TABLET BY MOUTH EVERY MORNING 90 tablet 1 025 Active levothyroxine (Synthroid, Levoxyl) 200 MCG tabletIndications :Other specified hypothyroidism TAKE 1 TABLET BY MOUTH EVERY MORNING BEFORE BREAKFAST 90 tablet 1 025 Active omeprazole (PriLOSEC) [address] capsule TAKE 1 CAPSULE BY MOUTH EVERY MORNING BEFORE BREAKFAST 90 capsule 025 Active gabapentin (Neurontin) 100 MG capsuleIndication s:Paresis of single lower extremity (CMS/HCC) TAKE 1 CAPSULE BY MOUTH THREE TIMES DAILY IN THE MORNING, EVENING, AND BEDTIME 90 capsule 025 Active oxyCODONE (Roxicodone) 10 MG immediate release tabletIndications :Chronic low back pain, unspecified back pain laterality, unspecified whether sciatica present Take 1 tablet (10 mg) by mouth every 8 (eight) hours if needed for severe pain for up to 28 days. Do not start before November 12, 2024. 84 tablet 025 2024 Active levothyroxine (Synthroid, Levoxyl) 200 MCG tabletIndications :Other specified hypothyroidism TAKE 1 TABLET BY MOUTH EVERY MORNING BEFORE MEALS 90 tablet 1 024 2024 Discontinued omeprazole (PriLOSEC) [address] capsule TAKE 1 CAPSULE BY MOUTH EVERY MORNING BEFORE BREAKFAST 90 capsule 024 2024 Discontinued ferrous sulfate (FeroSul) 325 (65 Fe) MG tabletIndications :Anemia, unspecified type TAKE 1 TABLET BY MOUTH TWICE DAILY IN THE MORNING AND IN THE EVENING WITH ORANGE JUICE 180 tablet 024 2024 Discontinued irbesartan (Avapro) 300 MG tablet TAKE 1 TABLET BY MOUTH EVERY MORNING 90 tablet 024 2024 Discontinued cholecalciferol (D3 Super Strength) 50 MCG (1999 UT) capsuleIndication s:Vitamin D deficiency TAKE 1 CAPSULE BY MOUTH EVERY MORNING 90 capsule 024 2024 Discontinued gabapentin (Neurontin) 100 MG capsuleIndication s:Paresis of single lower extremity (CMS/HCC) TAKE 1 CAPSULE BY MOUTH THREE TIMES DAILY IN THE MORNING, EVENING, AND BEDTIME 90 capsule 025 2024 Discontinued oxyCODONE (Roxicodone) 10 MG immediate release tabletIndications :Chronic low back pain, unspecified back pain laterality, unspecified whether sciatica present Take 1 tablet (10 mg) by mouth every 8 (eight) hours if needed for severe pain for up to 28 days. Do not start before October 15, 2024. 84 tablet 025 2024 Discontinued(R eorder (will not trigger notification to Pharmacy)) Active Problems Problem Noted Date Diagnosed Date Screening mammogram for breast cancer 06/23/2024 Colon cancer screening 06/23/2024 Chronic cough 03/23/2024 Assessment & Plan (03/25/2024 10:49 AM EDT): Asthma?? Patient with h/o respiratory failure with DAKOTA I believe she will benefit form proper evaluation and management form pulmonology referral in I will do trial of albuterol inhaler Q 6hrs 2 puf with spacer Shortness of breath 03/23/2024 Assessment & Plan (03/25/2024 10:51 AM EDT): Deconditioning since she was discharge form hospitalization could be a factor but this patient needs full evaluation by cardiology and pulmonology, referrals in Chest pressure 03/23/2024 Leg edema, left 01/19/2024 Assessment & Plan (01/19/2024 4:48 PM EDT): Worsened for few weeks, no evidence of cellulitis now, will ro left leg DVT. Needs left leg DVT US, d-dimers may be high due to recent PE. FU TSH result done at endo office today. Continue Lovenox and fu after US report. Advised against massaging her legs, continue PT at home for now. Other pulmonary embolism without acute cor pulmo nale 11/18/2023 Assessment & Plan (11/18/2023 4:32 PM EST): C/w levonox to finish 3 months of treatment, VNA services to be place to make sure medication is being use properly Cardiac tamponade 11/18/2023 Diverticulitis 11/18/2023 Pleural effusion 11/18/2023 Chronic respiratory failure with hypoxia and hyp ercapnia 11/18/2023 Assessment & Plan (11/18/2023 4:29 PM EST): F/u by pulmonology Elevated LFTs 11/18/2023 Assessment & Plan (11/18/2023 4:30 PM EST): CMP will be check Unable to transfer from wheelchair to bed 2023 Assessment & Plan (11/18/2023 4:31 PM EST): Home PT will be set up for patient Kenia lift prescription will be generated Mixed stress and urge urinary incontinence 02/14 Assessment & Plan (02/14/2023 3:06 PM EDT): Pullups, commode to be prescribed Urinary frequency 02/13/2023 Onychomycosis 02/13/2023 Anemia 08/22/2022 Bilateral lower extremity edema 08/22/2022 Chronic low back pain 08/22/2022 Dyslipidemia 08/22/2022 Foot pain 08/22/2022 Insomnia 08/22/2022 Renal impairment 11/06/2017 Type 2 diabetes mellitus 11/06/2017 Assessment & Plan (06/24/2024 2:18 PM EDT): Diabetes is: controlled - Lab Results Component Value Date HGBA1C 6.3 (A) 06/23/2024 HGBA1C 6.2 (A) 03/23/2024 HGBA1C 7.9 (A) 02/13/2023 - Lab Results Component Value Date MICROALBUR 5.7 01/03/2022 CREATININE 0.84 04/26/2024 -Changes: none - Diabetic eye exam:referral done - Diabetic foot exam:referral done - Continue lifestyle modifications - Continue current medications - Follow up: 3 months Assessment & Plan (03/25/2024 10:47 AM EDT): Diabetes is: controlled - Lab Results Component Value Date HGBA1C 6.2 (A) 03/23/2024 HGBA1C 7.9 (A) 02/13/2023 HGBA1C 7.9 (H) 01/01/2022 - Lab Results Component Value Date MICROALBUR 5.7 01/03/2022 -Changes: none - Diabetic eye exam:up to date - Diabetic foot exam:pending - Continue lifestyle modifications - Continue current medications - Follow up: 3 months Assessment & Plan (02/14/2023 3:07 PM EDT): Lab Results Component Value Date HGBA1C 7.9 (A) 02/13/2023 HGBA1C 7.9 (H) 01/01/2022 HGBA1C 7.9 (A) 01/01/2022 - Lab Results Component Value Date MICROALBUR 5.7 01/03/2022 - Diabetic eye exam: referral done - Diabetic foot exam: podiatry referral done - Continue lifestyle modifications - Continue current medications - Edema 11/13/2016 Chronic rhinitis 02/13/2016 Acquired hypothyroidism 09/18/2015 Assessment & Plan (11/18/2023 4:31 PM EST): C/w levothyroxine 200mcgdaily, TSH will be re-check on next appointment Essential hypertension 09/18/2015 Assessment & Plan (06/24/2024 2:18 PM EDT): I advise ow Na diet and weight reduction Log BP for next appointment C/w same medications for now Assessment & Plan (03/25/2024 10:47 AM EDT): - Aerobic exercise to reduce BP. Initial goal of 30 min walk 3-5x/week. Increase as tolerated. - low-sodium diet (goal: <2g/day) and heart healthy diet such as DASH to reduce BP and prevent ASCVD. - Home BP monitoring 1-2 x day with goal of <140/90. - Seek immediate medical attention for chest pain, palpitations, SOB, syncope, or sudden changes in mental status. - Do not change or discontinue current prescriptions without first consulting health care provider Assessment & Plan (11/18/2023 4:29 PM EST): Patient has not check her BP at home I advise to c/w her verapamil and metoprolol and check her blood pressure at home Assessment & Plan (02/14/2023 3:06 PM EDT): - Aerobic exercise to reduce BP. Initial goal of 30 min walk 3-5x/week. Increase as tolerated. - low-sodium diet (goal: <2g/day) and heart healthy diet such as DASH to reduce BP and prevent ASCVD. - Home BP monitoring 1-2 x day with goal of <140/90. - Seek immediate medical attention for chest pain, palpitations, SOB, syncope, or sudden changes in mental status. 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 Encounters Date Type Department Care Team Description 11/09/2024 Refill [facility] MED & PEDS [address] [place] [address] Reyna Borges MD Chronic low back pain, unspecified back pain laterality, unspecified whether sciatica present 11/03/2024 Refill [facility] MED & PEDS [address] [place] [address] Reyna Borges MD Paresis of single lower extremity ([facility]) 10/31/2024 Refill [facility] MED & PEDS [address] [place] [address] Reyna Borges MD Anemia, unspecified type; Vitamin D deficiency; Other specified hypothyroidism 10/20/2024 Patient Outreach [facility] [address] [place] [address] [phone] Reyna Borges MD Care Coordination (W outreach for SDOH PT-1 and food needs-referral completed /) 10/20/2024 Telephone [facility] [address] [place], [place] [phone] Reyna Borges MD PT1 10/20/2024 Telephone [facility] [address] [place] [address] Reyna Borges MD Durable Medical Equipment 10/13/2024 Refill [facility] MED [facility] PED[facility] [address] [place] [address] Reyna Borges MD Chronic low back pain, unspecified back pain laterality, unspecified whether sciatica present 10/08/2024 Refill [facility] [address] [place] [address] Reyna Borges MD Paresis of single lower extremity ([facility]) 09/16/2024 Refill [facility] PED[facility] [address] [place] [address] Reyna Borges MD Chronic low back pain, unspecified back pain laterality, unspecified whether sciatica present 09/13/2024 Telephone [facility] [address] [place] [phone] Reyna Borges MD Prior Authorization (L&C Form: Reusable Underpad ) 09/06/2024 Refill [facility] [address] [place] [address] Reyna Borges MD Paresis of single lower extremity ([facility]) 09/06/2024 Refill [facility] [address] [place] [phone] Reyna Borges MD Paresis of single lower extremity ([facility]) 09/03/2024 9:30 AM EST Telemedicine [facility] [address] [place] [phone] Maxine Gonzales RN Chronic low back pain, unspecified back pain laterality, unspecified whether sciatica present 09/03/2024 Refill [facility] [address] [place] [address] Reyna Borges MD Paresis of single lower extremity ([facility]) 09/03/2024 Travel 09/03/2024 Telephone [facility] [address] [place] [address] [phone] Maxine Gonzales, ELIJAH Recommend Tele BACKPACKERS MANAGER Tier 2 08/27/2024 Telephone [facility] [address] [place] [phone] Billy Perez MA Durable Medical Equipment 08/27/[address] [address] Billy Perez MA Durable Medical Equipment (/) 08/26/[address] [address] Reyna Borges MD Nurse Triage 08/26/[address] [address] Reyna Borges MD Durable Medical Equipment 08/19/2024 Travel 08/16/2024 Refill [facility] [address] [place] [address] Reyna Borges MD Chronic low back pain, unspecified back pain laterality, unspecified whether sciatica present from Last 3 Months Immunizations Name Administration Dates Next Due Hep B, Unspecified 11/27/2017 INFLUENZA INJECTABLE QUADRIV ALANT CCIIV4 MDCK Multi-dose vial 09/27/2019 Influenza injectable quadriv alent IIV4 with preservative 06/09/2018,11/02/2015 Influenza injectable quadriv alent preservative free 11/18/2016 Influenza, IIV3, injectable 10/08/2013, 1 Influenza, Injectable, MDCK, preservative free 06/16/2020 Influenza, Split (incl. erik fied surface antigen) 06/12/2012 Influenza, seasonal, injecta ble, preservative free 06/23/2024 Moderna Covid-19 Vaccine 12+ 11/28/2021,02/29/20 21,01/31/2021 Pneumococcal Conjugate PCV 20 06/23/2024 Pneumococcal Polysaccharide PPSV23 03/02/2018, Tdap 09/07/2023,06/18/2011 Zoster, Recombinant 09/27/2019,07/16/2019 Social History Tobacco Use Types Packs/Day Years [...] Orientation Straight 07/15/2022 10 :14 AM EDT Last Filed Vital Signs Vital Sign Reading Time Taken Comments Blood Pressure 155/95 06/23/2024 2:04 PM EDT Pulse 88 06/23/2024 2:04 PM EDT Temperature 36.3 ??C (97.4 ??F) 06/23/2024 2 :04 PM EDT Respiratory Rate 20 06/23/2024 2:04 PM EDT Oxygen Saturation 99% 03/23/2024 11: 14 AM EDT Inhaled Oxygen Concentration - - Weight 132 kg (292 lb) 06/23/2024 2:04 PM EDT pt on wheelchair 402lb Height 177.8 cm (5' 10 ) 06/23/2024 2:0 4 PM EDT Body Mass Index 41.9 06/23/2024 2:04 PM EDT Plan of Treatment Upcoming Encounters Date Type Department Care Team (Late st Contact Info) Description 11/19/2024 9:30 AM EST Telemedicine [facility] [address] [place] [address] Maxine Gonzales RN 12/16/2024 2:00 PM EDT Office Visit [facility] [address] [place] [address] Chelle Fragoso, OD [address] [place] [address] Health Maintenance Due Date Last Done Comments CT Colonography 1965 Colonoscopy 1965 Colorectal Cancer Screening 1965 FIT DNA/Cologuard 1965 FIT 1965 FOBT 1965 HIV Screening 1965 Sigmoidoscopy 1965 Diabetes: Foot Exam 1975 Eye Exam 1975 Alcohol/Substance Use Screening 1977 Hepatitis C Screening 1983 Pap Smear 1986 Cervical Cancer Screening 1995 HPV/Cotest 1995 Mammogram 2005 Hepatitis B Vaccines (2 of 3 - 19+ 3-dose series) 12/25/2017 11/27/2017 Lipid Panel 01/01/2023 01/01/2022, 10/17, 08/29/2020 Diabetes: Urine Protein Screening 07/29/2023 07/29/2022, 01/03/2022, 11/09/2020 Depression Screening 02/14/2024 02/13/2023, 02/14/20 23 COVID-19 Vaccine ( season) 2024 11/28/2021, 02/28/2021, 01/31/2021 Diabetes: Hemoglobin A1C 09/23/2024 024, 03/23/2024, 02/13/2023, Additional history exists SDOH Screening 11/07/2024 11/07/2023 Tobacco Screening 06/23/2025 06/23/2024 DTaP/Tdap/Td Vaccines (3 - Td or Tdap) 09/07/2033 09/07/2023, 06/18/2011 RSV Patients and Patients Aged 60 years or older (1 - 1-dose 75+ series) 2040 Zoster Vaccines Completed 09/27/2019, 07/16/2019 Influenza Vaccine Completed 06/23/2024, , 09/27/2019, Additional history exists Pneumococcal Vaccine: 50+ Years Completed 06/23/2024, 03/02/2018, 03/02/2015 HIB Vaccines Aged Out No longer eligi [...] patient's age to complete this topic Meningococcal Vaccine Aged Out No kenyon roland eligible based on patient's age to complete this topic RSV under 20 months Aged Out No longe r eligible based on patient's age to complete this topic Rotavirus Vaccines Aged Out No longer eligible based on patient's age to complete this topic Procedures Procedure Name Priority Date/Time Associated Diagnosis Comments POCT GLYCATED HEMOGLOBIN, TOTAL Routine 06/23/2024 2:06 PM EDT Type 2 diabetes mellitus with hyperglycemia, with long-term current use of insulin ([facility]) ALBUMIN, RANDOM URINE W/CREATININE Routine 01/03/2022 3:32 PM EDT LIPID PANEL, STANDARD Routine 01/01/2022 2:16 PM EDT from Last 3 Months or Most Recently Relevant to Health Maintenance Results * (ABNORMAL) POCT HGB A1C (06/23/2024 2:06 PM EDT) Hemoglobin A1C 6.3(A) 4.0 - 6.0 % Blood 06/23/2024 2:06 PM EDT Reyna Bunch MD POINT OF CARE TEST EN TER/EDIT ORDERABLES Final Result * (ABNORMAL) ALBUMIN, RANDOM URINE W/CREATININE (01/03/2022 3:32 PM EDT) Microalbumin Urine 5.7 See Note: mg/dL [facility] Comment: Reference Range: ?? Reference Range Not established Microalb/Creat Ratio 46(H) <30 mcg/mg creat [facility] Comment: ?? The ADA defines abnormalities in albumin excretion as follows: ?? Albuminuria Category ?Result (mcg/mg creatinine) ?? Normal to Mildly increased ?? <30 Moderately increased ? 30-299 ?? Severely increased ? > OR = 300 ?? The ADA recommends that at least two of three specimens collected within a 3-6 month period be abnormal before considering a patient to be within a diagnostic category. Creatinine, Urine 123 20 - 275 mg/dL [facility] 01/03/2022 3:32 PM EDT Reyna Bunch MD LAB URINE ORDERABLES Final Result [facility] [address] * (ABNORMAL) LIPID PANEL, STANDARD (01/01/2022 2:16 PM EDT) Chol/HDLC Ratio 4.4 <5.0 (calc) [facility] Cholesterol, Total 201(H) <200 mg/dL [facility] HDL Cholesterol 46(L) > OR = 50 mg/dL [facility] LDL Cholesterol 125(H) mg/dL (calc) [facility] Comment: Reference range: <100 ?? Desirable range <100 mg/dL for primary prevention; ?? <70 mg/dL for patients with CHD or diabetic patients ?? with > or = 2 CHD risk factors. ?? LDL-C is now calculated using the Jaiden ?? calculation, which is a validated novel method providing ?? better accuracy than the Friedewald equation in the ?? estimation of LDL-C. ?? Kofi MCCRACKEN et al. MARVEL. 2013;310(19): 8727-8121 ?? (http://[employer]/faq/JTV562) Non-HDL Cholesterol 155(H) <130 mg/dL (calc) [facility] Comment: For patients with diabetes plus 1 major ASCVD risk ?? factor, treating to a non-HDL-C goal of <100 mg/dL ?? (LDL-C of <70 mg/dL) is considered a therapeutic ?? option. Triglycerides 181(H) <150 mg/dL [facility] 01/01/2022 2:16 PM EDT Reyna Bunch MD LAB BLOOD ORDERABLES Final Result [facility] [address] from Last 3 Months or Most Recently Relevant to Health Maintenance Insurance [place] [address] Care Teams Triage Registered Nurse Relationship Specialty Start Date End Date Reyna Borges MD [address] [place] [phone] PCP - General Family Medicine 10/26/20
--- OUTSIDE RECORDS SUMMARY | 2024-11-12 16:05 | XMS_ITS | Encounter Summary ---
Author Organization [employer] Address [address] [facility] [address] [place] [phone] Care Team Providers Care Family Practice Physician Name Role Phone Reyna Borges MD Primary Care Provide r Reason for Visit * Reason Comments Med Refill Encounter Details Date Type Department Care Team ([facility] st Contact Info) Description 12/06/2023 Refill [facility] [address] [place], [place] [phone] Kirsten Grady MD [address] [place] [address] Social History Tobacco Use Types Packs/Day Years [...] Info) Description 11/19/2024 9:30 AM EST Telemedicine [facility] [address] [place] [address] Maxine Gonzales, ELIJAH 12/16/2024 2:00 PM EDT Office Visit [facility] [address] [place], [place] [phone] Chelle Fragoso, OD [address] [place] [address] documented as of this encounter Visit Diagnoses Not on filedocumented in this encounter Additional Health Concerns Assessment Noted Time PHQ-9 Depression Total Score: 2 02/14/20 23 3:28 PM EDT documented as of this encounter Care Teams Family Practice Physician Relationship Specialty Start Date End Date Reyna Borges MD [address] [place], [place] [phone] PCP - General Family Medicine 10/26/20 documented as of this encounter
--- OUTSIDE RECORDS SUMMARY | 2024-11-12 16:05 | XMS_ITS | Encounter Summary ---
Author Organization [employer] Address [address] [facility] [address] [place] [address] Care Team Providers Care Commercial Food Instructor Name Role Phone Reyna Borges MD Primary Care Provide r Encounter Details Date Type Department Care Team (Late st Contact Info) Description 11/27/2022 Orders Only [facility] PEDS [address] [place] [address] Fiordaliza Bernabe LPN Social History Tobacco Use [...] Info) Description 11/19/2024 9:30 AM EST Telemedicine [facility] MEDICINE [address] [place] [address] Maxine Gonzales RN 12/16/2024 2:00 PM EDT Office Visit [facility] OPTOMETRY [address] [place] [address] Chelle Fragoso, OD [address] [place] [address] documented as of this encounter Visit Diagnoses Not on filedocumented in this encounter Care Teams Commercial Food Instructor Relationship Specialty Start Date End Date Reyna Borges MD [address] [place] [address] PCP - General Family Medicine 10/26/20 documented as of this encounter
--- OUTSIDE RECORDS SUMMARY | 2024-11-12 16:05 | XMS_ITS | Encounter Summary ---
Author Organization [employer] Address [address] [place] [address] Care Team Providers Care Tile Inspector Name Role Phone Reyna Borges MD Primary Care Provide r Reason for Visit * Reason Comments Med Refill Encounter Details Date Type Department Care Team ([facility] st Contact Info) Description 02/27/2024 Refill [facility] [address] [place], [place] [phone] Kirsten Grady MD [address] [place] [address] Chronic low back pain, unspecified back pain [...] Info) Description 11/19/2024 9:30 AM EST Telemedicine [facility] MEDICINE [address] [place] [address] Maxine Gonzales, RN 12/16/2024 2:00 PM EDT Office Visit [facility] OPTOMETRY [address] [place] [address] Richmond, Chelle, OD [address] [place] [address] documented as of this encounter Visit Diagnoses Diagnosis Chronic low back pain, unspecified back pain laterality, unspecified whether sciatica present documented in this encounter Additional Health Concerns Assessment Noted Time PHQ-9 Depression Total Score: 2 02/14/20 23 3:28 PM EDT documented as of this encounter Care Teams Tile Inspector Relationship Specialty Start Date End Date Reyna Borges MD [address] [place] [address] PCP - General Family Medicine 10/26/20 documented as of this encounter
--- OUTSIDE RECORDS SUMMARY | 2024-11-12 16:05 | XMS_ITS | Encounter Summary ---
Author Organization [facility] [employer] Address [address] [facility] [address] [place] [address] Care Team Providers Care Customer Service Assistant Name Role Phone Reyna Borges MD Primary Care Provide r Reason for Visit * Reason Comments Med Refill Encounter Details Date Type Department Care Team (Late Contact Info) Description 04/25/2023 Refill [facility] [address] [place] [address] Reyna Borges MD 230 [place], [place] [phone] Chronic low back pain, unspecified back pain [...] Info) Description 11/19/2024 9:30 AM EST Telemedicine [facility] MED[facility] [address] [place], [place] [phone] Maxine Gonzales RN 12/16/2024 2:00 PM EDT Office Visit [facility] OPTOMETRY [address] [place], [place] [phone] Chelle Fragoso, OD [address] [place] [address] documented as of this encounter Visit Diagnoses Diagnosis Chronic low back pain, unspecified back pain laterality, unspecified whether sciatica present documented in this encounter Additional Health Concerns Assessment Noted Time PHQ-9 Depression Total Score: 2 02/14/20 23 3:28 PM EDT documented as of this encounter Care Teams Customer Service Assistant Relationship Specialty Start Date End Date Reyna Borges MD [address] [place] [address] PCP - General Family Medicine 10/26/20 documented as of this encounter
== END 2024-11-12 13:55 | disposition home or self-care (01) ==
LOC: HO.RESP 13:54
PROVIDERS: PCP Internal Medicine; Visit Provider Internal Medicine Pulmonary Disease
DX: R06.00 Dyspnea, unspecified (principal)
CPT/HCPCS: 94010; 94640; 94727; 94729

== ENCOUNTER → 2024-11-12 14:05 | Outpatient (BNV) | payer MEDICAID, SELFPAY | PROVIDERS: PCP Internal Medicine; Visit Provider Internal Medicine Pulmonary Disease | DX: R06.00 Dyspnea, unspecified (principal) | CPT/HCPCS: 94060; 94727; 94729 ==

== ENCOUNTER 2025-01-06 22:17 | Emergency (ER) | payer MEDICAID, SELFPAY ==
--- NOTE | ~2025-01-06 | CT_ITS ---
CLINICAL HISTORY: Lower abdominal pain? Diverticulitis CT abdomen and pelvis without contrast Comparison: None Findings: Study limited without intravenous contrast. Study limited and degraded by significant artifact in upper abdomen. Bilateral basilar pulmonary opacities may represent atelectasis. No pleural effusion. Mild pericardial effusion. Cholelithiasis. No biliary ductal dilatation. Unenhanced liver and spleen grossly within normal limits. Pancreas appears within normal limits. Adrenal glands are thickened. No renal or ureteral stones with no hydronephrosis or hydroureter. No bowel obstruction, pneumoperitoneum, or pneumatosis. Diffuse colonic diverticulosis with no CT evidence of acute diverticulitis. Normal appendix. Uterus appears within normal limits. Prominence of the right adnexa which appears somewhat heterogeneous with measurements of approximately 10 cm x 4.5 cm. Left ovary measures 3.7 cm x 3.1 cm. Significant pelvic and lower abdominal inflammatory stranding. No significant adenopathy. No aneurysm of the abdominal aorta. Degenerative changes of the spine. IMPRESSION: 1. Significant prominence of the right adnexa which is heterogeneous with significant pelvic and lower abdominal inflammatory changes. This is nonspecific and may represent pelvic inflammatory disease. Possibility of right tubo-ovarian abscess not excluded. Correlate clinically and if indicated follow-up transvaginal pelvic ultrasound should be obtained. 2. Diverticulosis with no evidence of acute diverticulitis. 3. Cholelithiasis. 4. Small pericardial effusion. This document has been electronically signed by: Kiya Zee MD on 01/07/2025 00:51:20
--- NOTE | ~2025-01-06 | US_ITS ---
CLINICAL HISTORY: Right tubo-ovarian abscess??? Per CT scan, U/S pelvis with Doppler Comparison: CT/SR - CT ABDOMEN PELVIS WO IV CON - 01/06/25 23:25 EDT Findings: Normal anteverted uterus. Normal endometrium 11 mm. Left ovary not identified. Obscured by bowel gas. In the right adnexa there is a complex cystic lesion measuring approximately 10.4 x 4.6 x 5.9 cm. No abnormal vascularity. The ovary is not discretely identified. Spectral tracings in the right adnexa are obtained, however of an unknown area. Impression: 1. Complex cystic structure in the right adnexa without hyperemia. Differential includes hydrosalpinx or tubo-ovarian abscess. This document has been electronically signed by: Nay Llamas MD on 01/07/2025 03:01:51
[2025-01-06 22:30] VITALS: BP 131/76; BP 134/78; PULSE 111; PULSE 116; RESP 18; TEMP 36.9; O2SAT 97; O2SAT 99; BMI 45.4
--- NOTE | 2025-01-06 22:38 | ED_ITS ---
HPI - General Adult General Chief complaint: General Medical Stated complaint: sick, bilateral extremity swelling Time Seen by Provider: 01/06/25 22:37 Source: patient Mode of arrival: ambulatory Limitations: no limitations History of Present Illness ED Provider: HPI narrative: Patient complaining of lower abdominal discomfort for last 3 days with body aches with slight nausea no vomiting no diarrhea no urinary symptoms no fever or chills no sick contacts patient is wheelchair-bound Related Data Home Medications ?Medication ?Instructions ?Recorded ?Confirmed bumetanide 2 mg tablet 2 mg PO BID 03/14/22 07/07/24 ferrous sulfate 325 mg (65 mg 325 mg PO DAILY 03/14/22 07/07/24 iron) tablet (FeroSul) gabapentin 100 mg capsule 100 mg PO TID 03/14/22 07/07/24 irbesartan 300 mg tablet 300 mg PO QAM 03/14/22 07/07/24 metformin 500 mg tablet 500 mg PO BID 03/14/22 07/07/24 omeprazole 20 mg capsule,delayed 20 mg PO QAM 03/14/22 12/06/22 release oxycodone 10 mg tablet 10 mg PO Q8H PRN Pain 03/14/22 07/07/24 cholecalciferol (vitamin D3) 50 50 mcg PO QAM 12/06/22 07/07/24 mcg (2,000 unit) capsule (Vitamin D3) metoprolol succinate 50 mg 50 mg PO QAM 12/06/22 07/07/24 tablet,extended release 24 hr verapamil 180 mg tablet,extended 180 mg PO QPM 12/06/22 07/07/24 release albuterol sulfate 90 mcg/actuation 2 puff inhalation Q6H PRN wheezing 05/20/24 07/07/24 aerosol inhaler (Ventolin HFA) Previous Rx's ?Medication ?Instructions ?Recorded oxybutynin chloride 10 mg 10 mg PO DAILY 30 days #30 tabs 03/01/21 tablet,extended release 24 hr fluticasone furoate 200 1 inh inhalation DAILY #1 ea 07/22/24 mcg-vilanterol 25 mcg/dose inhalation powder (Breo Ellipta) Allergies Allergy/AdvReac Type Severity Reaction Status Date / Time amoxicillin [From AUGMENTIN] Allergy Unknown UNKNOWN. Verified 01/06/25 22:33 clavulanic acid Allergy Unknown UNKNOWN. Verified 01/06/25 22:33 [From AUGMENTIN] morphine [MORPHINE] Allergy Unknown UNKNOWN Verified 01/06/25 22:33 Penicillins [PCN] Allergy Unknown UNKNOWN Verified 01/06/25 22:33 Review of Systems 2 Review of Systems: Yes all other systems are reviewed and are negative [facility] Past Medical History Medical History Cervical cyst Wheelchair bound History of fibromyalgia Chronic GERD Sleep apnea Morbid obesity Hypothyroid Hypertension Chronic back pain Osteoarthritis Diabetes mellitus Edema Hypercholesteremia Surgical History History of surgery of head H/O Spinal surgery H/O left knee surgery History of knee surgery History of back surgery Family History Family History Mother No problems noted. Father No problems noted. Social History Social History Household Members: Spouse, Significant Other and Children Housing: Apartment Alcohol intake: never Patient Tobacco Use Status: Never used Tobacco Smoked in Last 30 Days: No Use of substances other than those prescribed or required for medical reasons: No Advance Directives: No Advance Directives Information Provided: Yes Do you have a plan to hurt others: No Plan Patient : No Physical Exam ED Vital Signs: Vital Signs - 24 hr 01/06/25 22:30 01/07/25 03:48 01/07/25 05:35 Temperature 98.5 F 100.4 F 98.4 F Pulse Rate 111 H 121 H 125 H Respiratory Rate 18 20 22 H Blood Pressure 131/76 138/64 117/48 L Pulse Oximetry 97 96 96 Oxygen Delivery Method Room Air Room Air Room Air 01/07/25 05:36 Temperature 98.4 F Pulse Rate Respiratory Rate Blood Pressure Pulse Oximetry Oxygen Delivery Method BMI result Body Mass Index 45.4 Appearance: Alert. Oriented X3. No acute distress. Obese Eyes: No pallor or icterus ENT: Pharynx normal. Oral Mucosa moist Neck: Normal inspection. Neck supple. CVS: Normal heart rate and rhythm. Pulses normal. Respiratory: No respiratory distress. Equal air entry bilateral, no wheezing/rales/rhonchi Abdomen: Soft and diffuse tenderness lower abdomen no rebound tenderness Bowel sounds are present, no mass palpable, no CVA tenderness Skin: Skin warm and dry. Normal skin color. Normal skin turgor. Extremities: No lower extremity edema. No calf tenderness lymphedema++ Neuro: Oriented X 3. No motor deficit. Medications Administered Discontinued Medications Generic Name Dose Route Start Last Admin Trade Name Freq PRN Reason Stop Dose Admin Acetaminophen 975 mg 01/07/25 04:15 01/07/25 04:34 Acetaminophen 325 Mg Tablet PO 01/07/25 04:16 975 mg ONCE ONE Administration Sodium Chloride 1,000 mls @ 999 mls/hr 01/07/25 02:31 01/07/25 04:44 Ns IV 01/07/25 03:31 Infused .Q1H1M ONE Infusion Levofloxacin 750 mg in 150 mls @ 100 mls/hr 01/07/25 02:31 01/07/25 05:35 Levaquin IV 01/07/25 04:00 Infused ONCE ONE Infusion Metronidazole 500 mg in 100 mls @ 100 mls/hr 01/07/25 02:31 01/07/25 05:35 Flagyl IV 01/07/25 03:30 100 mls/hr ONCE ONE Administration Medical Decision Making Medical Decision Making [facility] Narrative: Patient with diffuse lower abdominal pain for last 3 days with nausea noted to have leukocytosis and UTI CT scan of the abdomen showed large right adnexal mass/abscess ultrasound also showed similar presentation patient not sexually active case discussed with Dr. Luong to be business practices officer he does not think in postmenopausal with tubo-ovarian abscess suspected mass and advised to transferred to [facility] 345 Am case discussed with business practices officer at [facility] Daysi Ayala MD accepted the patient for transfer patient has received IV Levaquin and Flagyl Differential Diagnosis Differential Diagnoses: The differential diagnosis associated with the presentation includes Lab Data [facility] Lab Attestation statement: I reviewed the patient's lab results. 01/06/25 22:38 01/06/25 22:38 Labs: Lab Results 01/06/25 01/07/25 01/07/25 Range/Units 22:38 02:17 03:04 WBC 16.4 H (4.8-10.8) X10*3/uL RBC 4.22 (4.20-5.50) X10*6/uL Hgb 11.6 L (12.0-16.0) g/dl Hct 35.3 L (37.0-47.0) % MCV 83.6 (80.0-98.0) fL MCH 27.5 (27.0-33.0) pg MCHC 32.9 (31.0-35.0) g/dl RDW 15.1 (11.0-16.0) % Plt Count 295 (160-400) X10*3/uL MPV 9.5 (9.4-12.3) fL Immature Gran % (Auto) 0.4 (0.0-0.4) % Neut % (Auto) 75.1 H (45-73) % Lymph % (Auto) 18.3 L (20-40) % Simpson % (Auto) 4.7 (2-11) % Eos % (Auto) 1.2 (0-4) % Baso % (Auto) 0.3 (0-2) % Lymph # (Auto) 3.0 (1.2-4.9) X10*3/uL Simpson # (Auto) 0.8 (0.1-1.2) X10*3/uL Eos # (Auto) 0.2 (0.0-0.4) X10*3/uL Baso # (Auto) 0.1 (0.0-0.2) X10*3/uL Abs Immat Gran (auto) 0.07 H (0.00-0.03) X10*3/uL Absolute Neuts (auto) 12.3 H (2.0-8.3) x10*3/uL Absolute Nucleated RBC 0.000 (0.0-0.012) X10*3/uL Nucleated RBC % (auto) 0.0 (0.0-0.2) /100WBC Sodium 134 L (135-145) mmol/L Potassium 4.0 (3.3-5.1) mmol/L Chloride 98 (96-108) mmol/L Carbon Dioxide 25 (22-29) mmol/L Anion Gap 15 (12-20) BUN 11 (9-16) mg/dL Creatinine 0.93 (0.5-1.4) mg/dL Estim Creat Clear Calc 98.2 Estimated GFR > 60 Random Glucose 180 H (60-115) mg/dL Lactic Acid 1.8 (0.5-2.0) mmol/L Calcium 10.0 (8.4-10.2) mg/dL Total Bilirubin 0.7 (0.0-1.0) mg/dL AST 92 H (5-31) U/L ALT 92 H (0-31) U/L Alkaline Phosphatase 264 H (39-117) U/L Total Protein 8.8 H (6.5-8.0) g/dL Albumin 4.0 (3.5-5.0) g/dL Urine Color Dark Yellow Urine Appearance Cloudy Urine pH 6.0 (5.0-9.0) Ur Specific [place] 1.025 (1.005-1.025) Urine Protein 100 (2+) H (Neg-Trace) mg/dL Urine Glucose (UA) Negative (Negative) mg/dL Urine Ketones Trace (Negative) mg/dL Urine Blood Large (3+) H (Negative) Urine Nitrite Positive H (Negative) Ur Leukocyte Esterase Moderate (2+) H (Negative) Urine RBC >20 H (0-2) /HPF Urine WBC >50 H (0-5) /HPF Ur Squamous Epith Cells 11-20 (0-2) /HPF Urine Bacteria 4+ (None Seen) Hyaline Casts 0-2 (0-2) /LPF Influenza Type A (PCR) NEGATIVE (Negative) Influenza Type B (PCR) NEGATIVE (Negative) RSV RNA Qual (PCR) NEGATIVE (Negative) SARS-CoV-2 RNA (RT-PCR) NEGATIVE (Negative) Radiology Impression Discussion of test interpretation with radiology: I have reviewed the radiologist's reading. Radiologist Impression: IMPRESSION: 1. Significant prominence of the right adnexa which is heterogeneous with significant pelvic and lower abdominal inflammatory changes. This is nonspecific and may represent pelvic inflammatory disease. Possibility of right tubo-ovarian abscess not excluded. Correlate clinically and if indicated follow-up transvaginal pelvic ultrasound should be obtained. 2. Diverticulosis with no evidence of acute diverticulitis. 3. Cholelithiasis. 4. Small pericardial effusion. This document has been electronically signed by: Kiya Zee MD on 01/07/2025 00:51:[address] [address] Ultrasound Report Signed Patient: Wnedy Ellsworth I MR#: [id number] : 1965 Acct:[id number] Age/Sex: 59 / F ADM Date: 01/06/25 Loc: HO.ED Attending Dr: Ordering Physician: Vincent Alberto MD Date of Service: 01/07/25 Procedure(s): US pelvic complete Accession Number(s): [id number] cc: Reyna Borges MD; Vincent Alberto MD~ CLINICAL HISTORY: Right tubo-ovarian abscess??? Per CT scan, U/S pelvis with Doppler Comparison: CT/SR - CT ABDOMEN PELVIS WO IV CON - 01/06/25 23:25 EDT Findings: Normal anteverted uterus. Normal endometrium 11 mm. Left ovary not identified. Obscured by bowel gas. In the right adnexa there is a complex cystic lesion measuring approximately 10.4 x 4.6 x 5.9 cm. No abnormal vascularity. The ovary is not discretely identified. Spectral tracings in the right adnexa are obtained, however of an unknown area. Impression: 1. Complex cystic structure in the right adnexa without hyperemia. Differential includes hydrosalpinx or tubo-ovarian abscess. This document has been electronically signed by: Nay Llamas MD on 01/07/2025 03:01:51 Discharge Plan Discharge Clinical Impression: Pelvic mass, UTI (urinary tract infection) Patient Disposition: [facility] Transfer Details: [facility] Prescriptions: No Action oxybutynin chloride 10 mg tablet extended release 24hr 10 mg PO DAILY 30 Days Qty: 30 0RF metoprolol succinate 50 mg tablet extended release 24 hr 50 mg PO QAM verapamil 180 mg tablet extended release 180 mg PO QPM cholecalciferol (vitamin D3) [Vitamin D3] 50 mcg (2,000 unit) capsule 50 mcg PO QAM irbesartan 300 mg tablet 300 mg PO QAM omeprazole 20 mg capsule,delayed release(DR/EC) 20 mg PO QAM gabapentin 100 mg capsule 100 mg PO TID ferrous sulfate [FeroSul] 325 mg (65 mg iron) tablet 325 mg PO DAILY bumetanide 2 mg tablet 2 mg PO BID metformin 500 mg tablet 500 mg PO BID oxycodone 10 mg tablet 10 mg PO Q8H PRN (Reason: Pain) albuterol sulfate [Ventolin HFA] 90 mcg/actuation HFA aerosol inhaler 2 puff inhalation Q6H PRN (Reason: wheezing) fluticasone furoate-vilanterol [Breo Ellipta] 200-25 mcg/dose blister with device 1 inh inhalation DAILY Qty: 1 6RF Print Language: Mongolian
[2025-01-06 22:42] LABS: MANUAL DIFF FLAG NO
[2025-01-06 22:43] LABS: Basophils Absolute Auto 0.1 X10*3/uL (0.0-0.2); Basophils Percent Auto 0.3 % (0-2); Eosinophils Absolute Auto 0.2 X10*3/uL (0.0-0.4); Eosinophils Percent Auto 1.2 % (0-4); Hematocrit 35.3 % (37.0-47.0); Hemoglobin 11.6 g/dl (12.0-16.0); Imm Gran Abs Auto 0.07 X10*3/uL (0.00-0.03); Imm Gran Pct Auto 0.4 % (0.0-0.4); Lymphocytes Percent Auto 18.3 % (20-40); Mean Corpuscular HGB Conc 32.9 g/dl (31.0-35.0); Mean Corpuscular Hemoglobin 27.5 pg (27.0-33.0); Mean Corpuscular Volume 83.6 fL (80.0-98.0); Mean Platelet Volume 9.5 fL (9.4-12.3); Monocytes Absolute Auto 0.8 X10*3/uL (0.1-1.2); Monocytes Percent Auto 4.7 % (2-11); Neutrophils Absolute Auto 12.3 x10*3/uL (2.0-8.3); Neutrophils Percent Auto 75.1 % (45-73); Platelet Count 295 X10*3/uL (160-400); Red Blood Count 4.22 X10*6/uL (4.20-5.50); Red Cell Distribution Width 15.1 % (11.0-16.0); White Blood Count 16.4 X10*3/uL (4.8-10.8)
--- OUTSIDE RECORDS SUMMARY | 2025-01-06 22:57 | XMS_ITS | Encounter Summary ---
Author Organization [employer] Address [address] [place] [address] Care Team Providers Care Orthopedic Coder Name Role Phone Reyna Borges MD Primary Care Provide r Reason for Visit * Reason Comments Med Refill Encounter Details Date Type Department Care Team ([facility] st Contact Info) Description 09/06/2024 Refill [facility] MEDICINE [address] [place], [place] [phone] Reyna Borges MD [address] [place], [place] [phone] Paresis of single lower extremity (CMS/HCC) Social [...] Care Team (Late st Contact Info) Description 02/04/2025 9:30 AM EDT Telemedicine [facility] MEDICINE [address] [place] [address] Maxine Gonzales RN documented as of this encounter Visit Diagnoses Diagnosis Paresis of single lower extremity (CMS/HCC) documented in this encounter Additional Health Concerns Assessment Noted Time PHQ-9 Depression Total Score: 2 02/14/20 23 3:28 PM EDT documented as of this encounter Care Teams Orthopedic Coder Relationship Specialty Start Date End Date Reyna Borges MD 230 [place] [address] PCP - General Family Medicine 10/26/20 documented as of this encounter
--- OUTSIDE RECORDS SUMMARY | 2025-01-06 22:57 | XMS_ITS | Encounter Summary ---
Author Organization [employer] Address [address] [facility] [address] [facility] [place] [address] Care Team Providers Care Video Game Animator Name Role Phone Reyna Borges MD Primary Care Provide r Reason for Visit * Reason Comments Med Refill Encounter Details Date Type Department Care Team (Late Contact Info) Description 05/20/2023 Refill [facility]S [address] [place], [place] [phone] Reyna Borges MD [address] [place] [phone] Social History Tobacco Use Types Packs/Day Years [...] Department Care Team (Late Contact Info) Description 02/04/2025 9:30 AM EDT Telemedicine [facility] MEDICINE [address] [place] [address] Maxine Gonzales RN documented as of this encounter Visit Diagnoses Not on filedocumented in this encounter Additional Health Concerns Assessment Noted Time PHQ-9 Depression Total Score: 2 02/14/20 23 3:28 PM EDT documented as of this encounter Care Teams Video Game Animator Relationship Specialty Start Date End Date Reyna Borges MD [address] [place] [address] PCP - General Family Medicine 10/26/20 documented as of this encounter
--- OUTSIDE RECORDS SUMMARY | 2025-01-06 22:57 | XMS_ITS | Encounter Summary ---
Author Organization [employer] Address [address] [place] [address] Care Team Providers Care Time Study Technician Name Role Phone Reyna Borges MD Primary Care Provide r Encounter Details Date Type Department Care Team (Late st Contact Info) Description 08/13/2023 Abstract [facility] MEDICINE [address] [place], [place] [phone] Daysi Bowden Social History Tobacco Use Types [...] Info) Description 02/04/2025 9:30 AM EDT Telemedicine [facility] MEDICINE [address] [place] [address] Maxine Gonzales RN documented as of this encounter Visit Diagnoses Not on filedocumented in this encounter Additional Health Concerns Assessment Noted Time PHQ-9 Depression Total Score: 2 02/14/20 23 3:28 PM EDT documented as of this encounter Care Teams Time Study Technician Relationship Specialty Start Date End Date Reyna Borges MD [address] [place] [address] PCP - General Family Medicine 10/26/20 documented as of this encounter
--- OUTSIDE RECORDS SUMMARY | 2025-01-06 22:57 | XMS_ITS | Encounter Summary ---
Author Organization [employer] Address [address] [place] [address] Care Team Providers Care Community Services Coordinator Name Role Phone Reyna Borges MD Primary Care Provide r Reason for Visit * Reason Comments Med Refill Encounter Details Date Type Department Care Team ([facility] st Contact Info) Description 06/20/2023 Refill [facility] PEDS [address] [place], [place] [phone] Reyna Borges MD [address] [place] [address] Chronic low back pain, unspecified back pain [...] t he electric, gas, oil or water [employer] threatened to shut off services in your [...] Info) Description 02/04/2025 9:30 AM EDT Telemedicine [facility] MEDICINE [address] [place] [address] Maxine Gonzales RN documented as of this encounter Visit Diagnoses Diagnosis Chronic low back pain, unspecified back pain laterality, unspecified whether sciatica present documented in this encounter Additional Health Concerns Assessment Noted Time PHQ-9 Depression Total Score: 2 02/14/20 23 3:28 PM EDT documented as of this encounter Care Teams Community Services Coordinator Relationship Specialty Start Date End Date Reyna Borges MD [address] [place] [address] PCP - General Family Medicine 10/26/20 documented as of this encounter
--- OUTSIDE RECORDS SUMMARY | 2025-01-06 22:57 | XMS_ITS | Encounter Summary ---
Author Organization [employer] Address [address] Floor [place] [phone] Care Team Providers Care Transformer Builder Name Role Phone Reyna Borges MD Primary Care Provide r Reason for Visit * Reason Comments Med Refill Encounter Details Date Type Department Care Team ([facility] st Contact Info) Description 12/06/2023 Refill [facility] MEDICINE [address] [place], [place] [phone] Kirsten Grady MD [address] [place] [address] Social History Tobacco Use Types Packs/Day Years [...] Info) Description 02/04/2025 9:30 AM EDT Telemedicine [facility] MEDICINE [address] [place] [address] Maxine Gonzales RN documented as of this encounter Visit Diagnoses Not on filedocumented in this encounter Additional Health Concerns Assessment Noted Time PHQ-9 Depression Total Score: 2 02/14/20 23 3:28 PM EDT documented as of this encounter Care Teams Transformer Builder Relationship Specialty Start Date End Date Reyna Borges MD [address] [place] [address] PCP - General Family Medicine 10/26/20 documented as of this encounter
--- OUTSIDE RECORDS SUMMARY | 2025-01-06 22:57 | XMS_ITS | Encounter Summary ---
Author Organization [employer] Address [address] [facility] [address] [place] [address] Care Team Providers Care Advisory Services Associate Name Role Phone Reyna Borges MD Primary Care Provide r Reason for Visit * Reason Comments Med Refill Encounter Details Date Type Department Care Team (Late Contact Info) Description 04/25/2023 Refill [facility] MEDICINE [address] [place] [phone] Reyna Borges MD [address] [place] [address] [phone] Chronic low back pain, unspecified back pain [...] Info) Description 02/04/2025 9:30 AM EDT Telemedicine [facility] MEDICINE [address] [place] [address] [phone] Maxine Gonzales RN documented as of this encounter Visit Diagnoses Diagnosis Chronic low back pain, unspecified back pain laterality, unspecified whether sciatica present documented in this encounter Additional Health Concerns Assessment Noted Time PHQ-9 Depression Total Score: 2 02/14/20 23 3:28 PM EDT documented as of this encounter Care Teams Advisory Services Associate Relationship Specialty Start Date End Date Reyna Borges MD [address] [place] [address] PCP - General Family Medicine 10/26/20 documented as of this encounter
--- OUTSIDE RECORDS SUMMARY | 2025-01-06 22:57 | XMS_ITS | Encounter Summary ---
Author Organization [employer] Address [address] [facility] [address] [place] [address] Care Team Providers Care Plastic Block Boiler Reliner Name Role Phone Reyna Borges MD Primary Care Provide r Reason for Visit * Reason Comments Med Refill Encounter Details Date Type Department Care Team (Late Contact Info) Description 02/23/2023 Refill [facility] [address] [place] [phone] Fiordaliza Luque DO [address] [place], [place] [phone] Anemia, unspecified type Social History Tobacco Use [...] Info) Description 02/04/2025 9:30 AM EDT Telemedicine [facility] MEDICINE [address] [place] [address] Janet, Maxine, RN documented as of this encounter Visit Diagnoses Diagnosis Anemia, unspecified type documented in this encounter Additional Health Concerns Assessment Noted Time PHQ-9 Depression Total Score: 2 02/14/20 23 3:28 PM EDT documented as of this encounter Care Teams Plastic Block Boiler Reliner Relationship Specialty Start Date End Date Reyna Borges MD [address] [place] [address] PCP - General Family Medicine 10/26/20 documented as of this encounter
--- OUTSIDE RECORDS SUMMARY | 2025-01-06 22:57 | XMS_ITS | Encounter Summary ---
Author Organization [employer] Address [address] [place] [address] Care Team Providers Care Citizen Participation Specialist Name Role Phone Reyna Borges MD Primary Care Provide r Reason for Visit * Reason Comments Med Refill Encounter Details Date Type Department Care Team ([facility] st Contact Info) Description 11/28/2023 Refill [facility] 230 [place], [place] [phone] Melany Torrez MD [address] [place] [address] Chronic low back pain, unspecified back pain [...] Info) Description 02/04/2025 9:30 AM EDT Telemedicine [facility] [address] [place] [address] Maxine Gonzales RN documented as of this encounter Visit Diagnoses Diagnosis Chronic low back pain, unspecified back pain laterality, unspecified whether sciatica present documented in this encounter Additional Health Concerns Assessment Noted Time PHQ-9 Depression Total Score: 2 02/14/20 23 3:28 PM EDT documented as of this encounter Care Teams Citizen Participation Specialist Relationship Specialty Start Date End Date Reyna Borges MD 230 [place] [address] PCP - General Family Medicine 10/26/20 documented as of this encounter
--- OUTSIDE RECORDS SUMMARY | 2025-01-06 22:57 | XMS_ITS | Clinical Summary ---
Author Organization [employer] Address 75 [facility] 7t [place] [address] Care Team Providers Care Pole Classifier Name Role Phone Reyna Borges MD Primary [...] hyperglycemia, with long-term current use of insulin ([facility]) TEST BLOOD SUGAR EVERY DAY BEFORE BREAKFAST 100 each 10 Active metFORMIN (Glucophage) 500 MG tablet TAKE [...] 12 HOURS DIRECTED 30 patch 11 Active FREESTYLE LITE test strip TEST BLOOD [...] Active cholecalciferol (D3 Super Strength) 50 MCG (2000 UT) capsuleIndication s:Vitamin D deficiency TAKE 1 CAPSULE BY MOUTH EVERY MORNING 90 capsule 025 Active irbesartan (Avapro) 300 MG tablet TAKE 1 TABLET BY MOUTH EVERY MORNING 90 tablet 025 Active levothyroxine (Synthroid, Levoxyl) 200 MCG tabletIndications :Other specified hypothyroidism TAKE 1 TABLET BY MOUTH EVERY MORNING BEFORE BREAKFAST 90 tablet 1 025 Active omeprazole (PriLOSEC) [address] capsule TAKE 1 CAPSULE BY MOUTH EVERY MORNING BEFORE BREAKFAST 90 capsule 025 Active metoprolol succinate XL (Toprol-XL) 50 MG 24 hr tablet TAKE 1 TABLET BY MOUTH EVERY MORNING 90 tablet 1 025 Active Breo Ellipta 200-25 MCG/ACT aerosol powder INHALE 1 PUFF BY MOUTH EVERY DAY AT THE SAME TIME RINSE MOUTH AFTER USING 025 Active gabapentin (Neurontin) 100 MG capsuleIndication [...] 8 (eight) hours if needed for severe pain. 84 tablet 025 Active gabapentin (Neurontin) 100 MG capsuleIndication [...] November 12, 2024. 84 tablet 025 2024 Discontinued oxyCODONE (Roxicodone) 10 MG immediate release tabletIndications :Chronic low back pain, unspecified back pain laterality, unspecified whether sciatica present TAKE 1 TABLET BY MOUTH EVERY 8 HOURS NEEDED FOR SEVERE PAIN 84 tablet 025 2024 Discontinued(R eorder (will [...] Encounters Date Type Department Care Team Description 01/04/2025 Refill [facility] MED & PEDS [address] [place] [address] Reyna Borges MD Chronic low back pain, unspecified back pain laterality, unspecified whether sciatica present 12/30/2024 Refill [facility] MED & PEDS [address] [place] [address] Reyna Borges MD Paresis of single lower extremity (CMS/HCC) 12/28/2024 Telephone [facility] MEDICINE [address] [place] [address] Reyna Borges MD Durable Medical Equipment 12/16/2024 2:00 PM EDT Office Visit [facility] OPTOMETRY [address] [place], [place] [phone] [place], Chelle, OD Diabetes mellitus type 2 without retinopathy ([facility]/HCC) (Primary Dx); Combined forms of age-related cataract of both eyes; Presbyopia 12/16/2024 Travel 12/07/2024 Refill [facility] MED & PEDS [address] [place] [address] Reyna Borges MD Chronic low back pain, unspecified back pain laterality, unspecified whether sciatica present 11/26/2024 Population Health Risk [facility] Department [address] [facility] [address] [place] [address] Provider, Population Health Generic 11/23/2024 Refill [facility] MEDICINE [address] [place] [address] Reyna Borges MD 11/19/2024 9:30 AM EST Telemedicine [facility] MEDICINE [address] [place], [place] [phone] Maxine Gonzales RN Chronic low back pain, unspecified back pain laterality, unspecified whether sciatica present 11/19/2024 Telephone [facility] MEDICINE [address] [place] [phone] Maxine Gonzales RN INSIDE FINISHER Renewal appt today 11/19/2024 Travel 11/09/2024 Refill [facility] MED & PEDS [address] [place] [address] Reyna Borges MD Chronic low back pain, unspecified back pain laterality, unspecified whether sciatica present 11/03/2024 Refill [facility] MED & PEDS [address] [place] [address] Reyna Borges MD Paresis of single lower extremity (CMS/HCC) 10/31/2024 Refill [facility] MED & PEDS [address] [place] [address] Reyna Borges MD Anemia, unspecified type; Vitamin D deficiency; Other specified hypothyroidism 10/20/2024 Patient Outreach [facility] MEDICINE [address] [place] [phone] Reyna Borges MD Care Coordination (CHW outreach for SDOH PT-1 and food needs-referral completed /) 10/20/2024 Telephone [facility] MEDICINE [address] [place] [phone] Reyna Borges MD PT1 10/20/2024 Telephone [facility] MEDICINE [address] [place] [phone] Reyna Borges MD Durable Medical Equipment 10/13/2024 Refill [facility] CHC MED & PEDS [address] [place], [place] [phone] Reyna Borges MD Chronic low back pain, unspecified back pain laterality, unspecified whether sciatica present 10/08/2024 Refill [facility] MEDICINE [address] [place] [address] Reyna Borges MD Paresis of single lower extremity (CMS/HCC) from Last 3 Months Immunizations Name Administration [...] Info) Description 02/04/2025 9:30 AM EDT Telemedicine [facility] MEDICINE [address] [place] [address] Maxine Gonzales, RN Health Maintenance Due Date Last Done Comments CT Colonography 1965 Colonoscopy 1965 Colorectal Cancer Screening 1965 FIT DNA/Cologuard 1965 FIT 1965 FOBT 1965 HIV Screening 1965 Sigmoidoscopy 1965 Diabetes: Foot Exam 1975 Alcohol/Substance Use Screening 1977 Hepatitis C Screening 1983 Pap Smear 1986 Cervical Cancer Screening 1995 HPV/Cotest 1995 Mammogram 2005 Hepatitis B Vaccines (2 of 3 - 19+ 3-dose series) 12/25/2017 11/27/2017 Lipid Panel 01/01/2023 01/01/2022, 10/17, 08/29/2020 Diabetes: Urine Protein Screening 07/29/2023 07/29/2022, 01/03/2022, 11/09/2020 Depression Screening 02/14/2024 02/13/2023, 02/14/20 COVID-19 Vaccine ( season) 2024 11/28/2021, 02/28/2021, 01/31/2021 SDOH Screening 11/07/2024 11/07/2023 Diabetes: Hemoglobin A1C 12/22/2024 024, 03/23/2024, 02/13/2023, Additional history exists Eye Exam 12/16/2025 12/16/2024, 04/0 11/2024, 12/16/2024, Additional history exists Tobacco Screening 12/24/2025 12/24/2024 DTaP/Tdap/Td Vaccines (3 - Td or Tdap) [...] hyperglycemia, with long-term current use of insulin ([facility]) ALBUMIN, RANDOM URINE W/CREATININE Routine 01/03/2022 3:32 PM EDT LIPID PANEL, STANDARD Routine 01/01/2022 2:16 PM EDT from Last 3 Months or Most Recently Relevant to Health Maintenance Results * (ABNORMAL) POCT HGB A1C (06/23/2024 2:06 PM EDT) Pathologist [facility] Hemoglobin A1C 6.3(A) 4.0 - 6.0 % Blood 06/23/2024 2:06 PM EDT Reyna Bunch MD POINT OF CARE TEST EN TER/EDIT ORDERABLES Final Result * (ABNORMAL) ALBUMIN, RANDOM URINE W/CREATININE (01/03/2022 3:32 PM EDT) Pathologist [facility] Microalbumin Urine 5.7 See Note: mg/dL [facility] [...] Bunch MD LAB URINE ORDERABLES Final Result [facility] [address] * (ABNORMAL) LIPID PANEL, STANDARD (01/01/2022 2:16 PM EDT) Pathologist [facility] Chol/HDLC Ratio 4.4 <5.0 (calc) [facility] [...] ?? Kofi MCCRACKEN et al. MARVEL. 2013;310(19): 6624-0658 ?? (http://education.Monitise/faq/URO685) Non-HDL Cholesterol 155(H) <130 mg/dL (calc) [facility] Comment: For patients with diabetes plus 1 major ASCVD risk ?? factor, treating to a non-HDL-C goal of <100 mg/dL ?? (LDL-C of <70 mg/dL) is considered a therapeutic ?? option. Triglycerides 181(H) <150 mg/dL [facility] 01/01/2022 2:16 PM EDT Reyna Bunch MD LAB BLOOD ORDERABLES Final Result [facility] [address] from Last 3 Months or Most Recently Relevant to Health Maintenance Insurance [facility] C3 Care Teams Pole Classifier Relationship Specialty Start Date End Date Reyna Borges MD [address] [place] [address] PCP - General Family Medicine 10/26/20
--- OUTSIDE RECORDS SUMMARY | 2025-01-06 22:57 | XMS_ITS | Encounter Summary ---
Author Organization [email or web address] Address [address] [facility] 7[address] [place] [address] Care Team Providers Care Speech Language Specialist Name Role Phone Reyna Borges MD Primary Care Provide r Encounter Details Date Type Department Care Team (Late Contact Info) Description 05/21/2023 Orders Only [facility] CHC MED & PEDS [address] [place], [place] [phone] Fiordaliza Bernabe LPN Social History Tobacco Use [...] Info) Description 02/04/2025 9:30 AM EDT Telemedicine [facility] MEDICINE [address] [place] [address] Maxine Gonzales RN documented as of this encounter Visit Diagnoses Not on filedocumented in this encounter Additional Health Concerns Assessment Noted Time PHQ-9 Depression Total Score: 2 02/14/20 23 3:28 PM EDT documented as of this encounter Care Teams Speech Language Specialist Relationship Specialty Start Date End Date Reyna Borges MD [address] [place] [address] PCP - General Family Medicine 10/26/20 documented as of this encounter
--- OUTSIDE RECORDS SUMMARY | 2025-01-06 22:57 | XMS_ITS | Encounter Summary ---
Author Organization [employer] Address 75 [facility] 7t [place] [address] Care Team Providers Care Polymer Chemist Name Role Phone Reyna Borges MD Primary Care Provide r Encounter Details Date Type Department Care Team (Late st Contact Info) Description 01/02/2023 Orders Only [facility] MEDICINE [address] [place] [phone] Kathie Rod LPN Social History Tobacco Use [...] Info) Description 02/04/2025 9:30 AM EDT Telemedicine [facility] MEDICINE [address] [place] [address] Maxine Gonzales RN documented as of this encounter Visit Diagnoses Not on filedocumented in this encounter Care Teams Polymer Chemist Relationship Specialty Start Date End Date Reyna Borges MD [address] [place] [address] PCP - General Family Medicine 10/26/20 documented as of this encounter
--- OUTSIDE RECORDS SUMMARY | 2025-01-06 22:57 | XMS_ITS | Encounter Summary ---
Author Organization [employer] Address 75 [facility] 7t [place] [address] Care Team Providers Care Emt Driver Name Role Phone Reyna Borges MD Primary Care Provide r Reason for Visit * Reason Onset Date Comments ER Follow-up 11/07/2023 Encounter Details Date Type Department Care Team ([facility] Contact Info) Description 11/07/2023 Telephone [facility] MEDICINE [address] [place] [address] [phone] Reyna Borges MD [address] [place], [place] [phone] ER Follow-up Social History Tobacco Use Types [...] visit on : Date: 11/03 Hospital: [facility] Seen for: Blood Clots Patient advised will forward to team nurse for follow up documented in this encounter Plan of Treatment Upcoming Encounters Date Type Department Care Team (Late st Contact Info) Description 02/04/2025 9:30 AM EDT Telemedicine [facility] MEDICINE [address] [place] [address] Maxine Gonzales, RN documented as of this encounter Visit Diagnoses Not on filedocumented in this encounter Additional Health Concerns Assessment Noted Time PHQ-9 Depression Total Score: 2 02/14/20 23 3:28 PM EDT documented as of this encounter Care Teams Emt Driver Relationship Specialty Start Date End Date Reyna Borges MD [address] [place] [address] PCP - General Family Medicine 10/26/20 documented as of this encounter
--- OUTSIDE RECORDS SUMMARY | 2025-01-06 22:57 | XMS_ITS | Encounter Summary ---
Author Organization [employer] Address [address] [facility] [address] 7t [place] [address] Care Team Providers Care Senior Loan Officer Name Role Phone Reyna Borges MD Primary Care Provide r Reason for Visit * Reason Comments Med Refill Encounter Details Date Type Department Care Team ([facility] st Contact Info) Description 10/10/[address] [facility] CHC MED & PEDS [address] [place], [place] [phone] Reyna Borges MD [address] [place], [place] [phone] Chronic low back pain, unspecified back pain [...] t he electric, gas, oil or water [employer] threatened to shut off services in your [...] Info) Description 02/04/2025 9:30 AM EDT Telemedicine [facility] MEDICINE [address] [place] [address] Maxine Gonzales RN documented as of this encounter Visit Diagnoses Diagnosis Chronic low back pain, unspecified back pain laterality, unspecified whether sciatica present documented in this encounter Additional Health Concerns Assessment Noted Time PHQ-9 Depression Total Score: 2 02/14/20 23 3:28 PM EDT documented as of this encounter Care Teams Senior Loan Officer Relationship Specialty Start Date End Date Reyna Borges MD [address] [place] [address] PCP - General Family Medicine 10/26/20 documented as of this encounter
--- OUTSIDE RECORDS SUMMARY | 2025-01-06 22:57 | XMS_ITS | Encounter Summary ---
Author Organization [employer] Address [address] [facility] [address] 7[address] [place] [address] Care Team Providers Care Caretaker Name Role Phone Reyna Borges MD Primary Care Provide r Reason for Visit * Reason Comments Med Refill Encounter Details Date Type Department Care Team ([facility] st Contact Info) Description 10/24/2023 Refill [facility] CHC MED & PEDS [address] [place], [place] [phone] Reyna Borges MD [address] [place], [place] [phone] Chronic low back pain, unspecified back pain [...] t he electric, gas, oil or water [employer] threatened to shut off services in your [...] Info) Description 02/04/2025 9:30 AM EDT Telemedicine [facility] MEDICINE [address] [place] [address] Maxine Gonzales RN documented as of this encounter Visit Diagnoses Diagnosis Chronic low back pain, unspecified back pain laterality, unspecified whether sciatica present documented in this encounter Additional Health Concerns Assessment Noted Time PHQ-9 Depression Total Score: 2 02/14/20 23 3:28 PM EDT documented as of this encounter Care Teams Caretaker Relationship Specialty Start Date End Date Reyna Borges MD [address] [place] [address] PCP - General Family Medicine 10/26/20 documented as of this encounter
--- OUTSIDE RECORDS SUMMARY | 2025-01-06 22:57 | XMS_ITS | Encounter Summary ---
Author Organization [employer] Address 75 [facility] 7t [place] [address] Care Team Providers Care Oyster Opener Name Role Phone Reyna Borges MD Primary Care Provide r Encounter Details Date Type Department Care Team (Late st Contact Info) Description 12/09/2022 Orders Only [facility] MEDICINE [address] [place] [phone] Kathie Rod LPN Social History Tobacco Use [...] AM EDT Telemedicine [facility] MEDICINE [address] [place] [address] Maxine Gonzales RN documented as of this encounter Visit Diagnoses Not on filedocumented in this encounter Care Teams Oyster Opener Relationship Specialty Start Date End Date Reyna Borges MD [address] [place] [address] PCP - General Family Medicine 10/26/20 documented as of this encounter
--- OUTSIDE RECORDS SUMMARY | 2025-01-06 22:57 | XMS_ITS | Encounter Summary ---
Author Organization [employer] Address [address] [facility] [address] 7[address] [place] [address] Care Team Providers Care Sweatband Drummer Name Role Phone Reyna Borges MD Primary Care Provide r Encounter Details Date Type Department Care Team (Late st Contact Info) Description 08/04/2023 Abstract [facility] MEDICINE [address] [place], [place] [phone] Daysi Bowden Social History Tobacco Use Types [...] Info) Description 02/04/2025 9:30 AM EDT Telemedicine [facility] MEDICINE [address] [place] [address] Maxine Gonzales RN documented as of this encounter Visit Diagnoses Not on filedocumented in this encounter Additional Health Concerns Assessment Noted Time PHQ-9 Depression Total Score: 2 02/14/20 23 3:28 PM EDT documented as of this encounter Care Teams Sweatband Drummer Relationship Specialty Start Date End Date Reyna Borges MD [address] [place] [address] PCP - General Family Medicine 10/26/20 documented as of this encounter
--- OUTSIDE RECORDS SUMMARY | 2025-01-06 22:57 | XMS_ITS | Encounter Summary ---
Author Organization [employer] Address 75 [facility] 7t [place] [address] Care Team Providers Care Life Skills Trainer Name Role Phone Reyna Borges MD Primary Care Provide r Encounter Details Date Type Department Care Team (Late st Contact Info) Description 11/27/2022 Orders Only [facility] CHC MED & PEDS [address] [place] [address] Fiordaliza Bernabe LPN Social History Tobacco Use [...] Info) Description 02/04/2025 9:30 AM EDT Telemedicine [facility] MEDICINE [address] [place] [address] Maxine Gonzales, RN documented as of this encounter Visit Diagnoses Not on filedocumented in this encounter Care Teams Life Skills Trainer Relationship Specialty Start Date End Date Reyna Borges MD [address] [place] [address] PCP - General Family Medicine 10/26/20 documented as of this encounter
--- OUTSIDE RECORDS SUMMARY | 2025-01-06 22:57 | XMS_ITS | Encounter Summary ---
Author Organization [employer] Address 75 [facility] 7t [place] [address] Care Team Providers Care Psychiatric Aide Name Role Phone Reyna Borges MD Primary Care Provide r Reason for Visit * Reason Onset Date Comments FYI 12/22/2023 Encounter Details Date Type Department Care Team ([facility] st Contact Info) Description 12/22/2023 Telephone [facility] MEDICINE [address] [place] [phone] Reyna Borges MD [address] [place], [place] [phone] FYI Social History Tobacco Use Types Packs/Day [...] EDT Tc from Kathy the [facility] at [employer] calling to report to the provider the patients elevated heart rate it is [phone] Any questions please call Kathy at [phone] documented in this encounter Plan of Treatment Upcoming Encounters Date Type Department Care Team (Late st Contact Info) Description 02/04/2025 9:30 AM EDT Telemedicine [facility] MEDICINE [address] [place] [address] Maxine Gonzales, RN documented as of this encounter Visit Diagnoses Not on filedocumented in this encounter Additional Health Concerns Assessment Noted Time PHQ-9 Depression Total Score: 2 02/14/20 23 3:28 PM EDT documented as of this encounter Care Teams Psychiatric Aide Relationship Specialty Start Date End Date Reyna Borges MD [address] [place] [address] PCP - General Family Medicine 10/26/20 documented as of this encounter
--- OUTSIDE RECORDS SUMMARY | 2025-01-06 22:57 | XMS_ITS | Encounter Summary ---
Author Organization [employer] Address [address] [facility] [address] 7t [place] [address] Care Team Providers Care Rental Management Trainee Name Role Phone Reyna Borges MD Primary Care Provide r Reason for Visit * Reason Comments Med Refill Encounter Details Date Type Department Care Team ([facility] st Contact Info) Description 06/26/2023 Refill [facility] CHC MED & PEDS [address] [place], [place] [phone] Reyna Borges MD [address] [place], [place] [phone] Social History Tobacco Use Types Packs/Day Years [...] Info) Description 02/04/2025 9:30 AM EDT Telemedicine [facility] MEDICINE [address] [place] [address] Maxine Gonzales RN documented as of this encounter Visit Diagnoses Not on filedocumented in this encounter Additional Health Concerns Assessment Noted Time PHQ-9 Depression Total Score: 2 02/14/20 23 3:28 PM EDT documented as of this encounter Care Teams Rental Management Trainee Relationship Specialty Start Date End Date Reyna Borges MD [address] [place] [address] PCP - General Family Medicine 10/26/20 documented as of this encounter
--- OUTSIDE RECORDS SUMMARY | 2025-01-06 22:57 | XMS_ITS | Clinical Summary ---
Author Organization [address] [place] [address] Address [address] [place] [address] Phone Care Team Providers Care Overlock Elastic Attacher Name Role Phone Reyna Borges MD Primary Care Provide r Allergies Active Allergy Reactions Criticality Noted Date Comments Benzonatate 12/04/2010 Other reaction(s): unspecified Clavulanic Acid 12/04/2010 Other reaction(s): face swelled Doxazosin 07/04/2021 Other reaction(s): Other (see comments) Morphine 12/04/2010 Other reaction(s): elev BP, tachycardia, SOB Niacin 01/21/2013 Other reaction(s): face red & numb, SOB Penicillins 12/04/2010 Other reaction(s): Other (see comments) Other reaction(s): face swelled Medications No known medications Encounters Date Type Department Care Team Description 12/20/2024 2:45 PM EDT Office Visit Orthopedic Surgery [facility] [address] [place] [phone] Enmanuel Mccray DPM Acquired hammer toe of right foot (Primary Dx); Hammer toe of left foot; Peripheral venous insufficiency; Diabetic mononeuropathy simplex (CMS/HCC V24, CMS/[facility] V28); Type II diabetes mellitus with peripheral circulatory disorder (CMS/HCC V24, CMS/HCC V28) from Last 3 Months Social History Tobacco Use Types Packs/Day Years Used Date Smoking Tobacco: Never Assessed Comments Unknown Sex and Gender Information Value Date Recorded Sex Assigned at Not on file Legal Sex Female 4:38 AM EST Gender Identity Not on file Sexual Orientation Not on file Last Filed Vital Signs Vital Sign Reading Time Taken Comments Blood Pressure - - Pulse - - Temperature - - Respiratory Rate - - Oxygen Saturation - - Inhaled Oxygen Concentration - - Weight 104 kg (230 lb) 12/20/2024 2:49 PM EDT Height 172.7 cm (5' 8 ) 12/20/2024 2:49 PM EDT Body Mass Index 34.97 12/20/2024 2:49 PM EDT Plan of Treatment Upcoming Encounters Date Type Department Care Team (Late st Contact Info) Description 03/28/2025 1:45 PM EDT Office Visit Orthopedic Surgery - [place] [phone] [phone] Enmanuel Mccray, DPM [address] [address] Health Maintenance Due Date Last Done Comments Breast Cancer Screening 1965 Diabetes: Annual Foot Exam 1975 Diabetes: Annual Retina Eye Exam 1975 Cervical Cancer Screening: Pap Smear 1986 Hepatitis B Vaccines (2 of 3 - 19+ 3-dose series) 12/25/2017 11/27/2017 COVID-19 Vaccine ( season) 2024 11/28/2021, 02/28/2021, 01/31/2021 Colorectal Cancer Screening: Colonoscopy 08/11/2024 Depression Screening 08/11/2024 02/13/2023 HIV Screening 08/11/2024 Hepatitis C Screening 08/11/2024 Social Influencers of Health Screening 08/11/2024 Diabetes: Annual GFR (Glomerular Filtration Rate) 10/22/2024 10/22/2023 Diabetes: Annual Urine Albumin-Creatinine Ratio (uACR) 12/20/2024 Hypertension/CHF/CAD Annual BMP Blood Test 12/20/2024 10/22/2023 Diabetes: Blood Sugar Control Test (HGBA1C) 12/22/2024 06/23/2024 Cholesterol Screening (Lipid Panel) 01/01/2027 01/01/2022 DTaP,Tdap,and Td Vaccines (3 - Td or Tdap) 09/07/2033 09/07/2023, 06/18/2011 RSV Immunization Adult Patients (1 - 1-dose 75+ series) 2040 Zoster Vaccines Completed 09/27/2019, 07/16/2019 Influenza Vaccine Completed 06/23/2024, , 09/27/2019, Additional history exists Pneumococcal Vaccine: 50+ Years Completed 06/23/2024, 03/02/2018, 03/02/2015 Pneumococcal Vaccine: Pediatrics (0 to 5 Years) and At-Risk Patients (6 to 64 Years) Completed 06/23/2024, 03/02/2018, 03/02/2015 HIB Vaccines Aged [...] age to complete this topic Meningococcal B Vaccine Aged Out No l onger eligible based on patient's age to complete this topic RSV Immunization Patients Under 20 months Aged Out No longer eligible based on patient's age to complete this topic Varicella Vaccines Aged Out No longer eligible based on patient's age to complete this topic Insurance MEDICAID - [place] Care Teams Overlock Elastic Attacher Relationship Specialty Start Date End Date Reyna Borges MD [address] [phone] PCP - General 07/07/24
--- OUTSIDE RECORDS SUMMARY | 2025-01-06 22:57 | XMS_ITS | Encounter Summary ---
Author Organization [employer] Address [address] [place] [address] Care Team Providers Care Business Writer Name Role Phone Reyna Borges MD Primary Care Provide r Reason for Visit * Reason Onset Date Comments Med Refill 01/04/2025 Encounter Details Date Type Department Care Team ([facility] st Contact Info) Description 01/04/2025 Refill [facility] PEDS [address] [place], [place] [phone] Reyna Borges MD [address] [place] [address] Chronic low back pain, unspecified back pain [...] encounter Miscellaneous Notes * Addendum Note - Grazyna Andujar RN - 01/05/2025 9:37 AM EDTAddended by: GRAZYNA ANDUJAR on: 01/05/2025 09:37 AM Modules accepted: Orders * Telephone Encounter - Grazyna Andujar RN - 01/04/2025 2:47 PM EDT Noted. [facility] reviewed 01/04/25, last p/u on 12/10/24 for a 28 day supply. Medication is not due until 01/07/25, RN will pend on 01/05/25. * Telephone Encounter - Kathie Rod LPN - 01/04/2025 1:34 PM EDT Received request on oxyCODONE (Roxicodone) 10 MG immediate release tablet documented in this encounter Plan of Treatment Upcoming Encounters Date Type Department Care Team (Late st Contact Info) Description 02/04/2025 9:30 AM EDT Telemedicine [facility] MEDICINE [address] [place] [id number] Maxine Gonzales RN documented as of this encounter Visit Diagnoses Diagnosis Chronic low back pain, unspecified back pain laterality, unspecified whether sciatica present documented in this encounter Additional Health Concerns Assessment Noted Time PHQ-9 Depression Total Score: 2 02/14/20 3:28 PM EDT documented as of this encounter Care Teams Business Writer Relationship Specialty Start Date End Date Reyna Borges MD [address] [place] [id number] PCP - General Family Medicine 10/26/20 documented as of this encounter
--- OUTSIDE RECORDS SUMMARY | 2025-01-06 22:57 | XMS_ITS | Encounter Summary ---
Author Organization [employer] Address [address] [place] [address] Care Team Providers Care Process Plant Operator Name Role Phone Reyna Borges MD Primary Care Provide r Reason for Visit * Reason Comments Med Refill Encounter Details Date Type Department Care Team ([facility] st Contact Info) Description 02/27/2024 Refill [facility] MEDICINE [address] [place], [place] [phone] Kirsten Grady MD [address] [place] [address] Chronic low back pain, unspecified back pain [...] Info) Description 02/04/2025 9:30 AM EDT Telemedicine [facility] MEDICINE [address] [place] [address] Maxine Gonzales RN documented as of this encounter Visit Diagnoses Diagnosis Chronic low back pain, unspecified back pain laterality, unspecified whether sciatica present documented in this encounter Additional Health Concerns Assessment Noted Time PHQ-9 Depression Total Score: 2 02/14/20 23 3:28 PM EDT documented as of this encounter Care Teams Process Plant Operator Relationship Specialty Start Date End Date Reyna Borges MD [address] [place] [id number] PCP - General Family Medicine 10/26/20 documented as of this encounter
--- OUTSIDE RECORDS SUMMARY | 2025-01-06 22:57 | XMS_ITS | Encounter Summary ---
Author Organization [employer] Address [address] [facility] [place] [address] Care Team Providers Care System Dispatcher Name Role Phone Reyna Borges MD Primary Care Provide r Reason for Visit * Reason Onset Date Comments PT1 10/20/2024 Encounter Details Date Type Department Care Team ([facility] st Contact Info) Description 10/20/2024 Telephone [facility] MEDICINE [address] [place] [address] [phone] Reyna Borges MD [address] [place], [place] [phone] PT1 Social History Tobacco Use Types Packs/Day [...] Yes Provider name or facility name: [address] [place] [place] [address]. Escort needed: Y/N: Yes Do you have a wheelchair: Y/N: Yes If yes- Manual or electric: Electric Visits: (2x monthly) 1 of 2 Patient calling requesting PT1 Home Address verified: Y/N: Yes Provider name or facility name: [facility] [address] [address] Escort needed: Y/N: Yes Do you have a wheelchair: Y/N: Yes If yes- Manual or electric: Electric Visits: (1x monthly) 1 of 3 Patient calling requesting PT1 Home Address verified: Y/N: Yes Provider name or facility name: [facility], [address] [place] [address] Escort needed: Y/N: Yes Do you have a wheelchair: Y/N: Yes If yes- Manual or electric: Electric Visits: (1x monthly) 1 of 4 Patient calling requesting PT1 Home Address verified: Y/N: Yes Provider name or facility name: [facility], [address] [address] Escort needed: Y/N: Yes Do you have a wheelchair: Y/N: Yes If yes- Manual or electric: Electric Visits: (1x monthly) 1 of 5 Patient calling requesting PT1 Home Address verified: Y/N: Yes Provider name or facility name: [facility], [address] [place] [address]. Escort needed: Y/N: Yes Do you have a wheelchair: Y/N: Yes If yes- Manual or electric: Electric Visits: (1x monthly) documented in this encounter Plan of Treatment Upcoming Encounters Date Type Department Care Team (Late st Contact Info) Description 02/04/2025 9:30 AM EDT Telemedicine [facility] MEDICINE [address] [place] [address] Maxine Gonzales RN documented as of this encounter Visit Diagnoses Not on filedocumented in this encounter Additional Health Concerns Assessment Noted Time PHQ-9 Depression Total Score: 2 02/14/20 23 3:28 PM EDT documented as of this encounter Care Teams System Dispatcher Relationship Specialty Start Date End Date Reyna Borges MD [address] [place] [address] PCP - General Family Medicine 10/26/20 documented as of this encounter
[2025-01-06 22:58] LABS: Alanine Aminotransferase 92 U/L (0-31); Alkaline Phosphatase 264 U/L (39-117); Anion Gap 15 (12-20); Aspartate Amino Transferase 92 U/L (5-31); Bilirubin Total 0.7 mg/dL (0.0-1.0); Blood Urea Nitrogen 11 mg/dL (9-16); Carbon Dioxide 25 mmol/L (22-29); Chloride 98 mmol/L (96-108); Creatinine Clr Calc Pharmacy 98.2; Estimated Glomerular Filt Rate > 60; Glucose Random 180 mg/dL (60-115); Sodium 134 mmol/L (135-145); Total Protein 8.8 g/dL (6.5-8.0)
[2025-01-06 23:19] LABS: Influenza A PCR NEGATIVE (Negative); Influenza B PCR NEGATIVE (Negative); Resp Syncy Virus RNA Qual PCR NEGATIVE (Negative); SARS COV2 PCR INHOUSE NEGATIVE (Negative)
--- NOTE | 2025-01-06 23:28 | PC.NURSE ---
Pt off floor to CT.
[2025-01-07] VITALS (8 sets, daily range): BP systolic 117–156; BP diastolic 48–90; PULSE 94–125; RESP 18–22; TEMP 36.8–38; O2SAT 96–100
--- NOTE | 2025-01-07 00:33 | MHC.EDTECH ---
at this time this tech assisted the pt onto the bedpan per their request to use the bathroom, attempting to obtain urine sample
--- NOTE | 2025-01-07 02:10 | PC.NURSE ---
US at bedside for exam.
[2025-01-07 02:24] LABS: Appearance Urine Cloudy; Color Urine Dark Yellow; Glucose Urine UA Negative (Negative); Leukocyte Esterase Urine Moderate (2+) (Negative); Nitrite Urine Positive (Negative); Specific Gravity - Urine 1.025 (1.005-1.025); UMIC TRIGGER UACC YES; Urine Blood Large (3+) (Negative); Urine Ketones Trace mg/dL (Negative); Urine Protein 100 (2+) mg/dL (Neg-Trace)
--- NOTE | 2025-01-07 02:36 | PC.NURSE ---
Unable to obtain IV access, MD Nava aware to attempt US guided line.
--- NOTE | 2025-01-07 02:55 | PC.NURSE ---
Report given to Tanya NAVA pt exits my care at this time.
[2025-01-07 03:01] LABS: Bacteria Urine 4+ (None Seen); Hyaline Casts Urine 0-2 /LPF (0-2); RBC Urine >20 /HPF (0-2); UACC Culture Trigger YES; WBC Urine >50 /HPF (0-5)
[2025-01-07] MEDS: 0.9 % Sodium Chloride 1,000 ML 999 ML IV (03:05)
--- NOTE | 2025-01-07 03:13 | P.CONOB_ITS ---
SATELLITE DISH TECHNICIAN - CN: HPI Data of Consult Consult date: 01/07/25 Primary Care Provider: Reyna Bunch MD Consult Narrative Narrative: I was consulted on Wendy Ellsworth who is a 59 year old female presented to the emergency room with lower abdominal discomfort for last 3 days with body aches , slight nausea , no vomiting, no diarrhea , no urinary symptoms , no fever or chills. Pelvic ultrasound showed the following: Impression: 1. Complex cystic structure in the right adnexa without hyperemia. Differential includes hydrosalpinx or tubo-ovarian abscess. CT scan of abdomen and pelvis showed the following: IMPRESSION: 1. Significant prominence of the right adnexa which is heterogeneous with significant pelvic and lower abdominal inflammatory changes. This is nonspecific and may represent pelvic inflammatory disease. Possibility of right tubo-ovarian abscess not excluded. Correlate clinically and if indicated follow-up transvaginal pelvic ultrasound should be obtained. 2. Diverticulosis with no evidence of acute diverticulitis. 3. Cholelithiasis. 4. Small pericardial effusion cc:: CC: OB [facility] Past Medical History Medical History Cervical cyst Wheelchair bound History of fibromyalgia Chronic GERD Sleep apnea Morbid obesity Hypothyroid Hypertension Chronic back pain Osteoarthritis Diabetes mellitus Edema Hypercholesteremia Family History Family History Mother No problems noted. Father No problems noted. Surgical History Surgical History History of surgery of head H/O Spinal surgery H/O left knee surgery History of knee surgery History of back surgery Social History Social History Household Members: Spouse, Significant Other and Children Housing: Apartment Alcohol intake: never Patient Tobacco Use Status: Never used Tobacco Smoked in Last 30 Days: No Use of substances other than those prescribed or required for medical reasons: No Advance Directives: No Advance Directives Information Provided: Yes Do you have a plan to hurt others: No Plan Patient : No Meds Allergies Allergy/AdvReac Type Severity Reaction Status Date / Time amoxicillin [From AUGMENTIN] Allergy Unknown UNKNOWN. Verified 01/06/25 22:33 clavulanic acid Allergy Unknown UNKNOWN. Verified 01/06/25 22:33 [From AUGMENTIN] morphine [MORPHINE] Allergy Unknown UNKNOWN Verified 01/06/25 22:33 Penicillins [PCN] Allergy Unknown UNKNOWN Verified 01/06/25 22:33 Active Medications: Current Medications Sodium Chloride (Ns) 1,000 mls @ 999 mls/hr IV .Q1H1M ONE Stop: 01/07/25 03:31 Last Admin: 01/07/25 03:05 Dose: 999 mls/hr Levofloxacin (Levaquin) 750 mg in 150 mls @ 100 mls/hr IV ONCE ONE Stop: 01/07/25 04:00 Metronidazole (Flagyl) 500 mg in 100 mls @ 100 mls/hr IV ONCE ONE Stop: 01/07/25 03:30 Home Medications ?Medication ?Instructions ?Recorded ?Confirmed ?Last Taken ?Type bumetanide 2 mg tablet 2 mg PO BID 03/14/22 07/07/24 Unknown History ferrous sulfate 325 mg (65 mg 325 mg PO DAILY 03/14/22 07/07/24 Unknown History iron) tablet (FeroSul) gabapentin 100 mg capsule 100 mg PO TID 03/14/22 07/07/24 Unknown History irbesartan 300 mg tablet 300 mg PO QAM 03/14/22 07/07/24 Unknown History metformin 500 mg tablet 500 mg PO BID 03/14/22 07/07/24 Unknown History omeprazole 20 mg capsule,delayed 20 mg PO QAM 03/14/22 12/06/22 Unknown History release oxycodone 10 mg tablet 10 mg PO Q8H PRN Pain 03/14/22 07/07/24 Unknown History cholecalciferol (vitamin D3) 50 50 mcg PO QAM 12/06/22 07/07/24 Unknown History mcg (2,000 unit) capsule (Vitamin D3) metoprolol succinate 50 mg 50 mg PO QAM 12/06/22 07/07/24 Unknown History tablet,extended release 24 hr verapamil 180 mg tablet,extended 180 mg PO QPM 12/06/22 07/07/24 Unknown History release albuterol sulfate 90 mcg/actuation 2 puff inhalation Q6H PRN wheezing 05/20/24 07/07/24 Unknown History aerosol inhaler (Ventolin HFA) SATELLITE DISH TECHNICIAN Physical Exam Vitals Vital signs: Temp Pulse Resp BP Pulse Ox O2 Del Method 98.5 F 111 H 18 131/76 97 Room Air 01/06/25 22:30 01/06/25 22:30 01/06/25 22:30 01/06/25 22:30 01/06/25 22:30 01/06/25 22:30 BMI result Body Mass Index 45.4 Additional Comments: Reported by Dr. Chandler as the following: Abdomen: Soft and diffuse tenderness lower abdomen no rebound tenderness Bowel sounds are present, no mass palpable, no CVA tenderness SATELLITE DISH TECHNICIAN - Results Labs 01/06/25 22:38 01/06/25 22:38 Labs: Short CBC 01/06/25 Range/Units 22:38 WBC 16.4 H (4.8-10.8) X10*3/uL Hgb 11.6 L (12.0-16.0) g/dl Hct 35.3 L (37.0-47.0) % Plt Count 295 (160-400) X10*3/uL BMP 01/06/25 22:38 Sodium 134 L Potassium 4.0 Chloride 98 Carbon Dioxide 25 BUN 11 Creatinine 0.93 Calcium 10.0 Liver Function 01/06/25 Range/Units 22:38 Total Bilirubin 0.7 (0.0-1.0) mg/dL AST 92 H (5-31) U/L ALT 92 H (0-31) U/L Alkaline Phosphatase 264 H (39-117) U/L Albumin 4.0 (3.5-5.0) g/dL Urine 01/07/25 Range/Units 02:17 Urine Color Dark Yellow Urine Appearance Cloudy Urine pH 6.0 (5.0-9.0) Ur Specific [place] 1.025 (1.005-1.025) Urine Protein 100 (2+) H (Neg-Trace) mg/dL Urine Glucose (UA) Negative (Negative) mg/dL Assessment and Plan (1) TOA (tubo-ovarian abscess): Status: Acute Recommended the following to Dr. Chandler: GC/CT with BV panel to be collected Start antibiotics per CDC regimen: Since patient has penicillin allergy use Either clindamycin / gentamicin or Levaquin with metronidazole Given the size of the TOA and this finding in a postmenopausal patient raises the concern for the potential of an underlying malignancy therefore, the potential need for surgical exploration rather than treatment with antibiotics or a minimally invasive drainage procedure alone, I recommend transfer the patient to [facility] since there is no [facility] service available at [facility]. I spent a total of 20 minutes reviewing the chart, communicating to the emergency room provider and documenting in the medical record
--- NOTE | 2025-01-07 03:24 | PC.NURSE ---
Resumed care of pt at 0300, MD at bedside to go over plan of care with patient. MD to place line in pt d/t being a hard stick. Cultures and lactic ordered. IVF started, awaiting second set of BC and will then start antibiotics. Pt currently resting comfortably, reporting some pain in her lower right back where she has a raw area of skin from sitting in her chair. Pt reporting she goes from her bed to her chair. Pt uses w/c at home and transfers from one to the other. Pt denies any history of abdominal issues. Pt reports she had a biopsy on an area of her ovary awhile back d/t concerns of CA, but biopsy was negative at this time.
[2025-01-07 03:29] LABS: Lactic Acid 1.8 mmol/L (0.5-2.0)
[2025-01-07] MEDS: levoFLOXacin/D5W 750 MG/150 ML PIGGYBACK 100 MG IV (03:49)
[2025-01-07] MEDS: Acetaminophen 325 MG TABLET 975 MG PO (04:34)
--- NOTE | 2025-01-07 04:42 | PC.NURSE ---
This RN alerted provider of fever, APAP given at this time, Pt placed on monitor, this RN repositioned pt to right side d/t pain in her left hip. Pt found to be on a bedpan, ? of how long she had been on it, she was unable to tell staff, julian removed, lotion applied to patient per request. Pt currently on her period, pur wic placed d/t pt being bed bound, and bed julian not being able to properly be placed on pt. Call nicole within reach. Pt noted to have areas of moisture in pannis and vaginal area, hygiene care provided.
[2025-01-07] MEDS: metroNIDAZOLE/NS 500 MG/100 ML PIGGYBACK 100 MG IV ×2 (05:35→14:38)
--- NOTE | 2025-01-07 09:31 | PC.NURSE ---
Patient is requesting something for pain. Dr. Horton notified.
[2025-01-07] MEDS: oxyCODONE HCl Immed Release 5 MG TABLET PO (10:03)
--- NOTE | 2025-01-07 10:16 | PC.NURSE ---
Medicated for pain with Oxycodone 5mg, administered with 6 oz of ice water. Describes pain as cramping . Awaiting EMS transport to [facility] around 15:00 today. Patient speaking on the phone with someone just prior to this RN entering the room. Care ongoing by this RN.
--- NOTE | 2025-01-07 12:32 | PC.NURSE ---
Pillows applied under bilateral lower extremities for comfort. Continue to await available bed at [facility], unknown time of transfer or bed availability. Call nicole within reach. Patient watching TV. Care ongoing by this RN.
--- NOTE | 2025-01-07 15:45 | PC.NURSE ---
Linen change completed. Purewick is in place, but had urine on pad. Linens & pads changed. Cream applied underneath pannus, at perineum, and buttocks to protect from skin breakdown. Assistance needed. Pillows placed under lower extremities and hips for comfort. Patient thankful for care. Urine is dark, tea-colored. Purewick working and attached to wall suction. Awaiting bed assignment & transfer to [facility] for exploratory laparoscopic procedure. 20g IV access to right hand remains patent and functional. No additional needs at this time.
--- NOTE | 2025-01-07 17:24 | PC.NURSE ---
Button Inspector notified this RN that [facility] contacted [facility] to report bed assignment: Selena 3, Room 33-B. Accepting MD: Jamie. Callback number: .
--- NOTE | 2025-01-07 18:14 | PC.NURSE ---
Attempted to give RN to RN report. RN (Karis) at [facility] unable to give report at this time, and is mid-procedure with another patient. Call back number provided. EMS at bedside to bring patient to [facility]. [address]ena [address], Room 33-B.
--- NOTE | 2025-01-07 18:31 | PC.NURSE ---
Report given to Karis NAVA at [facility]. Patient is en route to [facility] via EMS ([facility]).
== END 2025-01-07 18:31 | disposition short-term general hospital (02) ==
PROVIDERS: Emergency Provider Internal Medicine; PCP Internal Medicine
DX: R19.03 Right lower quadrant abdominal swelling, mass and lump (principal); N39.0 Urinary tract infection, site not specified; R10.30 Lower abdominal pain, unspecified; E11.9 Type 2 diabetes mellitus without complications; I10 Essential (primary) hypertension; E78.00 Pure hypercholesterolemia, unspecified; Z03.818 Encounter for observation for suspected exposure to other biological agents ruled out; Z79.84 Long term (current) use of oral hypoglycemic drugs; Z79.899 Other long term (current) drug therapy
CPT/HCPCS: 0241U; 36415; 74176; 76856; 80053; 81001; 83605; 85025; 87040; 87086; 96361; 96365; 96366; 96367; 99285; J1836; J1956

== ENCOUNTER → 2025-01-06 22:50 | Outpatient (BNV) | payer MEDICAID, SELFPAY | PROVIDERS: Emergency Provider Internal Medicine; PCP Internal Medicine; Visit Provider Obstetrics & Gynecology | DX: N70.93 Salpingitis and oophoritis, unspecified (principal) | CPT/HCPCS: 99447 ==

== ENCOUNTER → 2025-01-06 23:01 | Outpatient (BNV) | payer MEDICAID, SELFPAY | PROVIDERS: Emergency Provider Internal Medicine; PCP Internal Medicine; Visit Provider Specialist | DX: N73.9 Female pelvic inflammatory disease, unspecified (principal); K57.30 Diverticulosis of large intestine without perforation or abscess without bleeding; K80.20 Calculus of gallbladder without cholecystitis without obstruction; I31.39 Other pericardial effusion (noninflammatory) | CPT/HCPCS: 74176 ==

== ENCOUNTER 2025-02-16 14:44 | Emergency (ER) | payer MEDICAID, SELFPAY ==
[2025-02-16 14:47] VITALS: BP 134/71; PULSE 101; RESP 20; TEMP 36.6; O2SAT 99; BMI 48.3
--- NOTE | 2025-02-16 14:54 | ED.GENADULT ---
HPI - General Adult General Chief complaint: General Medical Stated complaint: Removal of IV Time Seen by Provider: 02/16/25 16:27 History of Present Illness ED Provider: Ca VERDUZCO narrative: The patient is a 59-year-old woman who was recently treated at [facility] for a tubo-ovarian abscess. She was seen here on January 06 and transferred to [facility]. She was discharged on February 07. At the time of discharge she was receiving ertapenem through a PICC line in her right arm. On February 04 she had a right upper extremity ultrasound that showed a thrombus measuring greater than 5 cm from the right basilic vein reaching the medial subclavian vein. This was in the region of the PICC line. She was started on enoxaparin while in the hospital and discharged on apixaban. Today she followed up with the infectious disease office at [facility] as an outpatient. At that appointment it was determined that she no longer required ongoing IV antibiotics and that her PICC line could be removed. She was advised to come to the emergency room for removal of the PICC line. She has been taking apixaban for the clot. She has no fever, sweats, chills. She does not feel ill today. Related Data Home Medications ?Medication ?Instructions ?Recorded ?Confirmed bumetanide 2 mg tablet 2 mg PO BID 03/14/22 07/07/24 ferrous sulfate 325 mg (65 mg 325 mg PO DAILY 03/14/22 07/07/24 iron) tablet (FeroSul) gabapentin 100 mg capsule 100 mg PO TID 03/14/22 07/07/24 irbesartan 300 mg tablet 300 mg PO QAM 03/14/22 07/07/24 metformin 500 mg tablet 500 mg PO BID 03/14/22 07/07/24 omeprazole 20 mg capsule,delayed 20 mg PO QAM 03/14/22 12/06/22 release oxycodone 10 mg tablet 10 mg PO Q8H PRN Pain 03/14/22 07/07/24 cholecalciferol (vitamin D3) 50 50 mcg PO QAM 12/06/22 07/07/24 mcg (2,000 unit) capsule (Vitamin D3) metoprolol succinate 50 mg 50 mg PO QAM 12/06/22 07/07/24 tablet,extended release 24 hr verapamil 180 mg tablet,extended 180 mg PO QPM 12/06/22 07/07/24 release albuterol sulfate 90 mcg/actuation 2 puff inhalation Q6H PRN wheezing 05/20/24 07/07/24 aerosol inhaler (Ventolin HFA) Previous Rx's ?Medication ?Instructions ?Recorded oxybutynin chloride 10 mg 10 mg PO DAILY 30 days #30 tabs 03/01/21 tablet,extended release 24 hr fluticasone furoate 200 1 inh inhalation DAILY #1 ea 07/22/24 mcg-vilanterol 25 mcg/dose inhalation powder (Breo Ellipta) Allergies Allergy/AdvReac Type Severity Reaction Status Date / Time amoxicillin [From AUGMENTIN] Allergy Unknown UNKNOWN. Verified 02/16/25 14:49 clavulanic acid Allergy Unknown UNKNOWN. Verified 02/16/25 14:49 [From AUGMENTIN] morphine [MORPHINE] Allergy Unknown UNKNOWN Verified 02/16/25 14:49 Penicillins [PCN] Allergy Unknown UNKNOWN Verified 02/16/25 14:49 Review of Systems Review of Systems: Yes all other systems are reviewed and are negative PMF Past Medical History Medical History Cervical cyst Wheelchair bound History of fibromyalgia Chronic GERD Sleep apnea Morbid obesity Hypothyroid Hypertension Chronic back pain Osteoarthritis Diabetes mellitus Edema Hypercholesteremia Surgical History History of surgery of head H/O Spinal surgery H/O left knee surgery History of knee surgery History of back surgery Family History Family History Mother No problems noted. Father No problems noted. Social History Social History Household Members: Spouse, Significant Other and Children Housing: Apartment Alcohol intake: never Patient Tobacco Use Status: Never used Tobacco Advance Directives: No Advance Directives Information Provided: Yes Physical Exam ED Vital Signs: Vital Signs - 24 hr 02/16/25 14:47 02/16/25 16:00 02/16/25 18:32 Temperature 97.8 F 97.8 F 97.8 F Pulse Rate 101 H 88 88 Respiratory Rate 20 16 16 Blood Pressure 134/71 126/66 126/66 Pulse Oximetry 99 98 98 Oxygen Delivery Method Room Air Room Air BMI result Body Mass Index 48.3 Const Other: The patient is awake and alert. She appears chronically ill. She is in an electronic wheelchair. She does not seem obviously acutely ill however. HENMT Other: Face is symmetrical, mucous membranes moist. Eyes General: appearance normal, both eyes and all related structures Neck Neck: Yes full ROM Resp Effort & Inspection: normal respiratory effort Auscultation: clear to auscultation bilaterally Cardio Rate: regular rate Rhythm: regular rhythm Heart sounds: S1 normal heart sound present and S2 normal heart sound present Neuro Other: The patient is awake and alert with a normal mental status. She seems to move her arms normally. Extrem Other: The patient has a PICC line in through the skin of the medial aspect of the distal right upper arm. She seems to have good range of motion of the joints of the arm. Course Course Course Narrative: 02/16/25 1455 ANASTASIA Santos This is a Rapid Medical Examination (RME) performed by Leonel Urbano PA-C in triage. Full HPI, ROS, assessment and treatment plan per primary provider in the Main ED. Hx: 59 yo F here requesting PICC line removal to RUE. no pain. Plan: further eval in back Medical Decision Making Medical Decision Making MDM Narrative: The patient is a 59-year-old woman who recently finished a course of ertapenem via a PICC line that has been started at [facility]. About a week ago she was also found to have a DVT in the right upper extremity around the PICC line. She was treated in hospital with the enoxaparin. She was discharged on apixaban. She had an outpatient follow up appointment with the Infectious Disease Clinic at [facility]. She was advised that she could stop the antibiotics and therefore could have the PICC line removed. She came to the emergency room for PICC line removal. I removed the PICC line easily. The length was 45 cm. The tip was sent for culture. The patient confirms that she is on apixaban as an anticoagulant. She should follow up with her PCP. Discharge Plan Discharge Clinical Impression: PIC line (peripherally inserted central catheter) removal, Deep vein thrombosis (DVT) of right upper extremity Patient Disposition: Home, Self-Care Additional Instructions: Your IV catheter was removed without difficulty. Please keep the site of the catheter removal clean and covered with a Band-Aid. Change the Band-Aid 1 to 2 times a day. Before you left [facility] you had an ultrasound of your right arm that showed a blood clot in your right arm. That is why you were prescribed the anticoagulant medication apixaban (Eliquis). Please continue this medication as prescribed. You will probably need to be on this medication for a couple of months. Please follow up with your regular doctor soon. Return to the emergency room if significantly worse. Prescriptions: No Action oxybutynin chloride 10 mg tablet extended release 24hr 10 mg PO DAILY 30 Days Qty: 30 0RF metoprolol succinate 50 mg tablet extended release 24 hr 50 mg PO QAM verapamil 180 mg tablet extended release 180 mg PO QPM cholecalciferol (vitamin D3) [Vitamin D3] 50 mcg (2,000 unit) capsule 50 mcg PO QAM irbesartan 300 mg tablet 300 mg PO QAM omeprazole 20 mg capsule,delayed release(DR/EC) 20 mg PO QAM gabapentin 100 mg capsule 100 mg PO TID ferrous sulfate [FeroSul] 325 mg (65 mg iron) tablet 325 mg PO DAILY bumetanide 2 mg tablet 2 mg PO BID metformin 500 mg tablet 500 mg PO BID oxycodone 10 mg tablet 10 mg PO Q8H PRN (Reason: Pain) albuterol sulfate [Ventolin HFA] 90 mcg/actuation HFA aerosol inhaler 2 puff inhalation Q6H PRN (Reason: wheezing) fluticasone furoate-vilanterol [Breo Ellipta] 200-25 mcg/dose blister with device 1 inh inhalation DAILY Qty: 1 6RF Referrals: Reyna Borges MD [Primary Care Provider] - (Right upper extremity DVT secondary to a PICC line, on apixaban) Interventions: ED Discharge Assessment Last Done: 02/16/25 18:32 Discharge Date/Time: 02/16/25 18:33 Print Language: Turkish
--- OUTSIDE RECORDS SUMMARY | 2025-02-16 15:24 | XMS_ITS | Encounter Summary ---
Author Organization [employer] Address [address] [facility] [address] [place] [address] Care Team Providers Care Hog Tender Name Role Phone Reyna Borges MD Primary Care Provide r Reason for Visit * Reason Onset Date Comments Durable Medical Equipment 08/26/2024 Encounter Details Date Type Department Care Team ([facility] Contact Info) Description 08/26/2024 Telephone [facility] [address] [place] [id number] Reyna Borges MD [address] [place] [address] Durable Medical Equipment Social History Tobacco Use [...] Miscellaneous Notes * Telephone Encounter - Remedios Patrick Rivero - 08/26/2024 10:25 AM EST Tc from pt requesting a new script for incontinence pads, pt states current pads are to thin and over leaks. Please contact: [phone] Maori documented in this encounter Plan of Treatment Upcoming Encounters Date Type Department Care Team (Late st Contact Info) Description 04/15/2025 11:00 AM EDT Telemedicine [facility] [address] [place] [address] Maxine Gonzales RN documented as of this encounter Visit Diagnoses Not on filedocumented in this encounter Additional Health Concerns Assessment Noted Time PHQ-9 Depression Total Score: 2 02/14/20 23 3:28 PM EDT documented as of this encounter Care Teams Hog Tender Relationship Specialty Start Date End Date Reyna Borges MD [address] [place] [address] PCP - General Family Medicine [facility] documented as of this encounter
[2025-02-16 16:00] VITALS: BP 126/66; PULSE 88; RESP 16; TEMP 36.6; O2SAT 98
--- NOTE | 2025-02-16 17:42 | PC.NURSE ---
ED provider to remove pt PICC to LLE. Length verified at 45. Cath tip clipped and sent to lab per . Dressing and pressure applied to site. Pt tolerated well.
[2025-02-16 18:32] VITALS: BP 126/66; PULSE 88; RESP 16; TEMP 36.6; O2SAT 98
== END 2025-02-16 18:33 | disposition home or self-care (01) ==
PROVIDERS: Emergency Provider Emergency Medicine; PCP Internal Medicine
DX: I82.621 Acute embolism and thrombosis of deep veins of right upper extremity (principal); Z45.2 Encounter for adjustment and management of vascular access device
CPT/HCPCS: 87070; 87071; 87205; 99283; 99284

== ENCOUNTER 2025-03-11 14:13 | Outpatient (REF) | payer MEDICAID, SELFPAY ==
--- OUTSIDE RECORDS SUMMARY | 2025-03-11 14:40 | XMS_ITS | Encounter Summary ---
Author Organization [employer] Address [address] [facility] [address] [place] [address] Care Team Providers Care Museum Security Chief Name Role Phone Reyna Borges MD Primary Care Provide r Reason for Visit * Reason Onset Date Comments Durable Medical Equipment 08/26/2024 Encounter Details Date Type Department Care Team ([facility] Contact Info) Description 08/26/2024 Telephone [facility] [address] [place] [id number] Reyna Borges MD [address] [place] [address] Durable Medical Equipment Social History Tobacco Use [...] to thin and over leaks. Please contact: [phone] Urdu documented in this encounter Plan of Treatment Upcoming Encounters Date Type Department Care Team (Late st Contact Info) Description 04/15/2025 11:00 AM EDT Telemedicine [facility] [address] [place] [id number] Maxine Gonzales RN 05/20/2025 2:30 PM EDT Office Visit [facility] [address] [place] [phone] Reyna Borges MD [address] [place] [phone] documented as of this encounter Visit Diagnoses Not on filedocumented in this encounter Additional Health Concerns Assessment Noted Time PHQ-9 Depression Total Score: 2 02/14/20 23 3:28 PM EDT documented as of this encounter Care Teams Museum Security Chief Relationship Specialty Start Date End Date Reyna Borges MD [address] [place] [phone] PCP - General Family Medicine [facility] documented as of this encounter
[2025-03-11 16:26] LABS: MANUAL DIFF FLAG NO
[2025-03-11 16:36] LABS: Basophils Percent Auto 0.4 % (0-2); Eosinophils Absolute Auto 0.4 X10*3/uL (0.0-0.4); Eosinophils Percent Auto 3.4 % (0-4); Hematocrit 36.3 % (37.0-47.0); Hemoglobin 11.6 g/dl (12.0-16.0); Imm Gran Abs Auto 0.02 X10*3/uL (0.00-0.03); Imm Gran Pct Auto 0.2 % (0.0-0.4); Lymphocytes Absolute Auto 4.1 X10*3/uL (1.2-4.9); Mean Corpuscular Hemoglobin 27.2 pg (27.0-33.0); Mean Platelet Volume 10.9 fL (9.4-12.3); Monocytes Absolute Auto 0.5 X10*3/uL (0.1-1.2); Monocytes Percent Auto 4.4 % (2-11); Neutrophils Absolute Auto 5.3 x10*3/uL (2.0-8.3); Neutrophils Percent Auto 51.6 % (45-73); Platelet Count 269 X10*3/uL (160-400); Red Blood Count 4.27 X10*6/uL (4.20-5.50); Red Cell Distribution Width 17.2 % (11.0-16.0); White Blood Count 10.2 X10*3/uL (4.8-10.8)
[2025-03-11 17:03] LABS: Alanine Aminotransferase 17 U/L (0-31); Albumin Level 3.8 g/dL (3.5-5.0); Alkaline Phosphatase 111 U/L (39-117); Anion Gap 15 (12-20); Aspartate Amino Transferase 30 U/L (5-31); Bilirubin Total 0.2 mg/dL (0.0-1.0); Blood Urea Nitrogen 13 mg/dL (9-16); Calcium 9.5 mg/dL (8.4-10.2); Carbon Dioxide 23 mmol/L (22-29); Chloride 103 mmol/L (96-108); Cholesterol 245 mg/dL (<200); Estimated Glomerular Filt Rate > 60; Glucose Random 106 mg/dL (60-115); HDL Cholesterol 48 mg/dL (>40); LDL Cholesterol Calculated 165 mg/dL (<100); Potassium 4.8 mmol/L (3.3-5.1); Sodium 136 mmol/L (135-145); Total Protein 7.9 g/dL (6.5-8.0); Triglycerides 162 mg/dL (<150)
[2025-03-11 17:06] LABS: TSH reflex Free T4 4.15 uIU/mL (0.32-4.0)
[2025-03-11 17:45] LABS: Free T4 (Free Thyroxine) 0.49 ng/dL (0.71-1.85)
== END 2025-03-11 14:14 | disposition home or self-care (01) ==
LOC: HO.HHCL 14:13
PROVIDERS: PCP Internal Medicine; Visit Provider Registered Nurse
DX: E03.9 Hypothyroidism, unspecified (principal); N70.93 Salpingitis and oophoritis, unspecified
CPT/HCPCS: 36415; 80053; 80061; 84439; 84443; 85025

== ENCOUNTER → 2025-04-06 13:51 | Outpatient (BNV) | payer MEDICAID, SELFPAY | PROVIDERS: Visit Provider Internal Medicine | DX: I82.621 Acute embolism and thrombosis of deep veins of right upper extremity (principal) | CPT/HCPCS: 99204 ==